=== PATIENT | male | born 1955 | race Two or more races ===

== ENCOUNTER 2020-09-16 07:51 | Outpatient (REF) | payer MEDICARE, OTHER, SELFPAY ==
[2020-09-16 08:33] LABS: Alanine Aminotransferase 32 U/L (0-40); Albumin Level 4.5 g/dL (3.5-5.0); Alkaline Phosphatase 87 U/L (39-117); Anion Gap 14 (12-20); Aspartate Amino Transferase 27 U/L (5-37); Bilirubin Total 0.6 mg/dL (0.0-1.0); Blood Urea Nitrogen 10 mg/dL (9-16); Calcium 9.4 mg/dL (8.4-10.2); Carbon Dioxide 29 mmol/L (22-29); Chloride 101 mmol/L (96-108); Cholesterol 161 mg/dL; Creatinine Urine 90.35 mg/dL; Estimated Glomerular Filt Rate > 60; Glucose Fasting 161 mg/dL (60-99); HDL Cholesterol 52 mg/dL; LDL Cholesterol Calculated 74 mg/dl; Microalbumin Urine < 5.0 mg/L; Potassium 5.3 mmol/l (3.3-5.1); Sodium 139 mmol/L (135-145); Total Protein 7.1 g/dL (6.5-8.0); Triglycerides 176 mg/dL
== END 2020-09-16 07:52 | disposition home or self-care (01) ==
LOC: HO.LAB 07:51
PROVIDERS: PCP Internal Medicine; Visit Provider Internal Medicine
DX: E78.00 Pure hypercholesterolemia, unspecified (principal); E11.9 Type 2 diabetes mellitus without complications
CPT/HCPCS: 80053; 80061; 82043

== ENCOUNTER 2021-01-18 07:40 | Outpatient (REF) | payer MEDICARE, OTHER, SELFPAY ==
[2021-01-18 09:03] LABS: Alanine Aminotransferase 26 U/L (0-40); Albumin Level 4.3 g/dL (3.5-5.0); Alkaline Phosphatase 77 U/L (39-117); Anion Gap 13 (12-20); Aspartate Amino Transferase 21 U/L (5-37); Bilirubin Total 0.5 mg/dL (0.0-1.0); Blood Urea Nitrogen 12 mg/dL (9-16); Calcium 9.9 mg/dL (8.4-10.2); Carbon Dioxide 29 mmol/L (22-29); Chloride 106 mmol/L (96-108); Cholesterol 143 mg/dL; Estimated Glomerular Filt Rate > 60; Glucose Fasting 127 mg/dL (60-99); HDL Cholesterol 47 mg/dL; LDL Cholesterol Calculated 74 mg/dl; Potassium 5.6 mmol/L (3.3-5.1); Sodium 142 mmol/L (135-145); Total Protein 6.7 g/dL (6.5-8.0); Triglycerides 112 mg/dL
== END 2021-01-18 07:41 | disposition home or self-care (01) ==
LOC: HO.LAB 07:40
PROVIDERS: PCP Internal Medicine; Visit Provider Internal Medicine
DX: E11.9 Type 2 diabetes mellitus without complications (principal)
CPT/HCPCS: 36415; 80053; 80061

== ENCOUNTER → 2021-01-22 10:36 | Outpatient (REF) | payer MEDICARE, OTHER, SELFPAY ==
--- NOTE | 2021-01-22 10:45 | ECG_ITS ---
Test Reason : HYPERKALEMIA Blood Pressure : / mmHG Vent. Rate : 062 BPM Atrial Rate : 062 BPM P-R Int : 158 ms QRS Dur : 136 ms QT Int : 446 ms P-R-T Axes : 000 -17 005 degrees QTc Int : 452 ms Normal sinus rhythm Right bundle branch block Abnormal ECG When compared with ECG of 15-JAN-2017 09:11, T wave inversion now evident in Anterior leads Referred By: Cynthia Jackson Electronically Signed By:MARCY TSE MD
== END ==
LOC: HO.CARD 10:36
PROVIDERS: PCP Internal Medicine; Visit Provider Internal Medicine
DX: E87.5 Hyperkalemia (principal)
CPT/HCPCS: 93005

== ENCOUNTER 2021-05-07 16:28 | Emergency (ER) | payer MEDICARE, OTHER, SELFPAY ==
--- NOTE | ~2021-05-07 | US_ITS ---
EXAMINATION: US VENOUS ULTRASOUND WITH DOPPLER LOWER EXTREMITY, RIGHT CLINICAL INFORMATION: Right lower extremity pain and swelling. COMPARISON: None TECHNIQUE: Ultrasound of the deep veins is performed from the hip to the calf with compression sonography and color and pulse Doppler assessment. Spectral analysis with color-flow imaging is performed. FINDINGS: There is normal venous compression and respiratory variation and augmented flow. The visualized common femoral vein, superficial femoral vein, profunda femoral vein, popliteal vein, and the trifurcation region shows no evidence of deep venous thrombosis. There is no significant popliteal fossa cyst. If the patient's symptoms persist, followup ultrasound in 5 days 7 days might be of value to exclude proximal propagation from a non-visualized calf vein. US/US venous duplex LE RT IMPRESSION: No evidence of deep venous thrombosis in the visualized veins of the right lower extremity.
--- NOTE | ~2021-05-07 | XR_ITS ---
Examination: XR foot RT min 3V, XR ankle RT min 3V Indication: right foot/ankle swelling/redness Comparison: No pertinent prior studies are currently available for comparison. Technique: 3 views of the right foot with 2 additional views the right ankle. Lateral view of the right foot and ankle obtained 1 image. Findings: Diffuse soft tissue swelling is seen about the ankle. I do not appreciate any acute fracture or dislocation. Ankle mortise appears to be intact. Mild soft tissue swelling in the region of the forefoot as well. No acute fracture or dislocation within the foot. Prominent calcaneal heel spur is incidentally noted at the attachment point of the Achilles tendon and plantar aponeurosis. Mild degenerative changes in the first MTP joint. XR/XR foot RT min 3V Impression: Soft tissue swelling. No acute fracture or dislocation. No bony destructive lesions.
--- NOTE | ~2021-05-07 | XR_ITS ---
Examination: XR foot RT min 3V, XR ankle RT min 3V Indication: right foot/ankle swelling/redness Comparison: No pertinent prior studies are currently available for comparison. Technique: 3 views of the right foot with 2 additional views the right ankle. Lateral view of the right foot and ankle obtained 1 image. Findings: Diffuse soft tissue swelling is seen about the ankle. I do not appreciate any acute fracture or dislocation. Ankle mortise appears to be intact. Mild soft tissue swelling in the region of the forefoot as well. No acute fracture or dislocation within the foot. Prominent calcaneal heel spur is incidentally noted at the attachment point of the Achilles tendon and plantar aponeurosis. Mild degenerative changes in the first MTP joint. XR/XR ankle RT min 3V Impression: Soft tissue swelling. No acute fracture or dislocation. No bony destructive lesions.
[2021-05-07 16:37] VITALS: BP 109/80; PULSE 67; RESP 18; TEMP 37.1; O2SAT 99; BMI 25.0
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
[2021-05-07 18:10] VITALS: BP 158/69; PULSE 61; RESP 18; TEMP 37.2; O2SAT 98
[2021-05-07 19:06] LABS: MANUAL DIFF FLAG NO
[2021-05-07 19:10] LABS: Basophils Percent Auto 0.6 % (0-2); Eosinophils Absolute Auto 0.2 X10*3/uL (0.0-0.4); Eosinophils Percent Auto 2.7 % (0-4); Hematocrit 37.9 % (42-52); Hemoglobin 12.6 g/dl (14.0-18.0); Imm Gran Abs Auto 0.01 X10*3/uL (0.00-0.03); Imm Gran Pct Auto 0.1 % (0.0-0.4); Lymphocytes Absolute Auto 1.9 X10*3/uL (1.2-4.9); Lymphocytes Percent Auto 26.5 % (20-40); Mean Corpuscular HGB Conc 33.2 g/dl (31.0-36.0); Mean Corpuscular Hemoglobin 30.1 pg (27.0-33.0); Mean Corpuscular Volume 90.7 fL (80-98); Mean Platelet Volume 9.3 fL (9.4-12.4); Monocytes Absolute Auto 0.7 X10*3/uL (0.1-1.2); Monocytes Percent Auto 9.7 % (2-11); Neutrophils Absolute Auto 4.3 X10*3/uL (2.0-8.3); Neutrophils Percent Auto 60.4 % (45-73); Platelet Count 292 X10*3/uL (160-400); Red Blood Count 4.18 X10*6/uL (4.60-5.80); Red Cell Distribution Width 13.2 % (11.0-16.0); White Blood Count 7.1 X10*3/uL (4.8-10.8)
[2021-05-07 19:28] LABS: Lactic Acid 3.3 mmol/L (0.5-2.0)
[2021-05-07 19:33] LABS: Alanine Aminotransferase 16 U/L (0-40); Albumin Level 4.7 g/dL (3.5-5.0); Alkaline Phosphatase 88 U/L (39-117); Anion Gap 18 (12-20); Aspartate Amino Transferase 20 U/L (5-37); Bilirubin Total 0.6 mg/dL (0.0-1.0); Blood Urea Nitrogen 12 mg/dL (9-16); Calcium 10.5 mg/dL (8.4-10.2); Carbon Dioxide 27 mmol/L (22-29); Chloride 99 mmol/L (96-108); Creatinine Clr Calc Pharmacy 57.2; Estimated Glomerular Filt Rate > 60; Glucose Random 123 mg/dL (60-115); Potassium 4.5 mmol/L (3.3-5.1); Sodium 139 mmol/L (135-145); Total Protein 7.7 g/dL (6.5-8.0)
[2021-05-07 19:47] LABS: Erythrocyte Sedimentation Rate 31 MM/HR (0-15)
[2021-05-07 19:57] LABS: Glucose Urine UA NEG (NEG); Leukocyte Esterase Urine NEG (NEG); Nitrite Urine NEG (NEG); Specific Gravity - Urine <= 1.005 (1.005-1.025); Urine Blood NEG (NEG); Urine Ketones NEG (NEG); Urine Protein NEG (NEG-TRACE)
[2021-05-07 19:58] LABS: Appearance Urine CLEAR; Color Urine STRAW
[2021-05-07] MEDS: HYDROcodone Bit/Acetam 5/325 TABLET 1 TAB PO ×2 (20:13→23:11)
[2021-05-07] MEDS: cefTRIAXone sodium 1 GM in 0.9 % Sodium Chloride 50 ML IV (20:14)
[2021-05-07 20:15] VITALS: BP 154/73; PULSE 59; RESP 16; O2SAT 98
[2021-05-07] MEDS: 0.9 % Sodium Chloride 1,000 ML 999 ML IVCONT (20:15)
[2021-05-07 21:03] LABS: Reflex Lactate? Lactic Acid Added
[2021-05-07 22:40] VITALS: BP 146/71; PULSE 60; RESP 16; TEMP 36.3; O2SAT 98
--- NOTE | 2021-05-07 22:48 | PC.NURSE ---
This machine sign writer called lab on behalf of provider (KATJA Hylton) regarding delayed/missing Lactic Acid level result, despite being drawn and sent approximately 1.5 hours ago. Lab stated The tube was left to the side by mistake, but it's still on ice, so we'll put it in the centerfuge and run the result now . Jeni Grover (charge nurse) and Estefania Urbina (provider) aware. Will continue to monitor.
--- NOTE | 2021-05-07 22:50 | PC.NURSE ---
Verified w/ lab lactic acid is pending. Pt resting in bed, reporting increasing pain, vss, skin wpd, no apparent distress.
[2021-05-07 22:59] LABS: ~Lactic Acid-LAB USE ONLY 1.9 mmol/L (0.5-2.0)
== END 2021-05-07 23:21 | disposition home or self-care (01) ==
PROVIDERS: Physician Assistant; Physician Assistant Medical; Emergency Provider Internal Medicine; PCP Internal Medicine
DX: L03.115 Cellulitis of right lower limb (principal); M79.671 Pain in right foot; E11.9 Type 2 diabetes mellitus without complications; I10 Essential (primary) hypertension; Z79.84 Long term (current) use of oral hypoglycemic drugs; Z79.899 Other long term (current) drug therapy
CPT/HCPCS: 36415; 73610; 73630; 80053; 81003; 83605; 83735; 85025; 85652; 86140; 87040; 93971; 96365; 99284; 99291; J0696

== ENCOUNTER 2021-05-17 09:20 | Outpatient (REF) | payer MEDICARE, OTHER, SELFPAY ==
[2021-05-17 11:08] LABS: Alanine Aminotransferase 16 U/L (0-40); Albumin Level 4.2 g/dL (3.5-5.0); Alkaline Phosphatase 80 U/L (39-117); Anion Gap 14 (12-20); Aspartate Amino Transferase 17 U/L (5-37); Bilirubin Total 0.6 mg/dL (0.0-1.0); Blood Urea Nitrogen 18 mg/dL (9-16); Calcium 10.1 mg/dL (8.4-10.2); Carbon Dioxide 26 mmol/L (22-29); Chloride 98 mmol/L (96-108); Cholesterol 104 mg/dL; Estimated Glomerular Filt Rate > 60; Glucose Fasting 107 mg/dL (60-99); HDL Cholesterol 35 mg/dL; LDL Cholesterol Calculated 55 mg/dl; Potassium 4.7 mmol/L (3.3-5.1); Sodium 133 mmol/L (135-145); Total Protein 6.7 g/dL (6.5-8.0); Triglycerides 72 mg/dL
[2021-05-17 12:22] LABS: Creatinine Urine 60.32 mg/dL; Microalbumin Urine < 5.0 mg/L
== END 2021-05-17 09:21 | disposition home or self-care (01) ==
LOC: HO.LAB 09:20
PROVIDERS: PCP Internal Medicine; Visit Provider Internal Medicine
DX: E11.9 Type 2 diabetes mellitus without complications (principal); E78.5 Hyperlipidemia, unspecified
CPT/HCPCS: 36415; 80053; 80061; 82043

== ENCOUNTER 2021-09-27 08:42 | Outpatient (REF) | payer MEDICARE, OTHER, SELFPAY ==
[2021-09-27 10:17] LABS: Prostate Specific Antigen 0.81 ng/mL (<0.05-4.0)
== END 2021-09-27 08:43 | disposition home or self-care (01) ==
LOC: HO.LAB 08:42
PROVIDERS: PCP Internal Medicine; Visit Provider Nurse Practitioner Family
DX: Z12.5 Encounter for screening for malignant neoplasm of prostate (principal)
CPT/HCPCS: 36415; 84153

== ENCOUNTER 2022-02-21 09:28 | Outpatient (REF) | payer MEDICARE, OTHER, SELFPAY ==
[2022-02-21 09:52] LABS: MANUAL DIFF FLAG NO
[2022-02-21 10:25] LABS: Basophils Absolute Auto 0.1 X10*3/uL (0.0-0.2); Basophils Percent Auto 0.9 % (0-2); Eosinophils Absolute Auto 0.4 X10*3/uL (0.0-0.4); Eosinophils Percent Auto 7.5 % (0-4); Hematocrit 36.3 % (42.0-52.0); Hemoglobin 11.8 g/dl (14.0-18.0); Imm Gran Abs Auto 0.01 X10*3/uL (0.00-0.03); Imm Gran Pct Auto 0.2 % (0.0-0.4); Lymphocytes Percent Auto 33.7 % (20-40); Mean Corpuscular HGB Conc 32.5 g/dl (31.0-36.0); Mean Corpuscular Hemoglobin 29.3 pg (27.0-33.0); Mean Corpuscular Volume 90.1 fL (80.0-98.0); Mean Platelet Volume 9.6 fL (9.4-12.4); Monocytes Absolute Auto 0.6 X10*3/uL (0.1-1.2); Monocytes Percent Auto 10.4 % (2-11); Neutrophils Absolute Auto 2.8 x10*3/uL (2.0-8.3); Neutrophils Percent Auto 47.3 % (45-73); Platelet Count 280 X10*3/uL (160-400); Red Blood Count 4.03 X10*6/uL (4.60-5.80); Red Cell Distribution Width 13.2 % (11.0-16.0); White Blood Count 5.9 X10*3/uL (4.8-10.8)
[2022-02-21 11:07] LABS: Alanine Aminotransferase 16 U/L (0-40); Albumin Level 4.2 g/dL (3.5-5.0); Alkaline Phosphatase 70 U/L (39-117); Anion Gap 12 (12-20); Aspartate Amino Transferase 18 U/L (5-37); Bilirubin Total 0.6 mg/dL (0.0-1.0); Blood Urea Nitrogen 13 mg/dL (9-16); Calcium 9.9 mg/dL (8.4-10.2); Carbon Dioxide 26 mmol/L (22-29); Chloride 102 mmol/L (96-108); Cholesterol 128 mg/dL; Estimated Glomerular Filt Rate > 60; Glucose Fasting 100 mg/dL (60-99); HDL Cholesterol 47 mg/dL; Iron 84 mcg/dL (45-160); LDL Cholesterol Calculated 63 mg/dl; Percent Iron Saturation 22 % (15-50); Potassium 5.3 mmol/L (3.3-5.1); Sodium 135 mmol/L (135-145); Total Iron Binding Capacity 374 mcg/dL (228-428); Total Protein 6.6 g/dL (6.5-8.0); Triglycerides 93 mg/dL; Unsaturated Iron Binding 290 ug/dL
[2022-02-21 11:12] LABS: Vitamin D 25-OH Total 24.7 ng/mL (>30)
[2022-02-21 11:45] LABS: Creatinine Urine 70.56 mg/dL; Microalbumin Urine < 5.0 mg/L
== END 2022-02-21 09:29 | disposition home or self-care (01) ==
LOC: HO.LAB 09:28
PROVIDERS: PCP Internal Medicine; Visit Provider Internal Medicine
DX: E55.9 Vitamin D deficiency, unspecified (principal); E11.9 Type 2 diabetes mellitus without complications; E78.5 Hyperlipidemia, unspecified; D64.9 Anemia, unspecified
CPT/HCPCS: 36415; 80053; 80061; 82043; 82306; 83540; 85025

== ENCOUNTER → 2022-02-28 09:05 | Outpatient (BNV) | payer MEDICARE, SELFPAY | PROVIDERS: PCP Internal Medicine; Referring Provider Internal Medicine; Visit Provider Internal Medicine | DX: D50.9 Iron deficiency anemia, unspecified (principal) | CPT/HCPCS: 99203; 99213; 99214 ==

== ENCOUNTER 2022-03-28 10:59 | Outpatient (REF) | payer MEDICARE, OTHER, SELFPAY ==
--- NOTE | ~2022-03-28 | XR_ITS ---
EXAMINATION: XR FOOT, RIGHT CLINICAL INFORMATION: Right foot pain. COMPARISON: None TECHNIQUE: AP, lateral, and oblique views of the right foot. FINDINGS: The bones and soft tissues are normal. No fracture. Small plantar and retrocalcaneal spurs. Alignment is anatomic. Joint spaces are maintained. XR/XR foot RT min 3V IMPRESSION: Small degenerative calcaneal spurs without other significant abnormality.
== END 2022-03-28 11:00 | disposition home or self-care (01) ==
LOC: HO.HMGCX 10:59
PROVIDERS: PCP Internal Medicine; Visit Provider Internal Medicine
DX: M67.979 Unspecified disorder of synovium and tendon, unspecified ankle and foot (principal); M79.671 Pain in right foot
CPT/HCPCS: 73630

== ENCOUNTER 2022-07-25 09:12 | Outpatient (REF) | payer MEDICARE, OTHER, SELFPAY ==
[2022-07-25 09:34] LABS: MANUAL DIFF FLAG NO
[2022-07-25 10:47] LABS: Basophils Percent Auto 0.7 % (0-2); Eosinophils Absolute Auto 0.2 X10*3/uL (0.0-0.4); Eosinophils Percent Auto 3.8 % (0-4); Hematocrit 37.4 % (42.0-52.0); Hemoglobin 12.2 g/dl (14.0-18.0); Imm Gran Abs Auto 0.02 X10*3/uL (0.00-0.03); Imm Gran Pct Auto 0.4 % (0.0-0.4); Lymphocytes Absolute Auto 1.8 X10*3/uL (1.2-4.9); Lymphocytes Percent Auto 31.4 % (20-40); Mean Corpuscular HGB Conc 32.6 g/dl (31.0-36.0); Mean Corpuscular Hemoglobin 29.1 pg (27.0-33.0); Mean Corpuscular Volume 89.3 fL (80.0-98.0); Mean Platelet Volume 9.5 fL (9.4-12.4); Monocytes Absolute Auto 0.5 X10*3/uL (0.1-1.2); Monocytes Percent Auto 9.5 % (2-11); Neutrophils Percent Auto 54.2 % (45-73); Platelet Count 319 X10*3/uL (160-400); Red Blood Count 4.19 X10*6/uL (4.60-5.80); Red Cell Distribution Width 12.9 % (11.0-16.0); White Blood Count 5.6 X10*3/uL (4.8-10.8)
[2022-07-25 11:20] LABS: Alanine Aminotransferase 16 U/L (0-40); Albumin Level 4.6 g/dL (3.5-5.0); Alkaline Phosphatase 78 U/L (39-117); Anion Gap 16 (12-20); Aspartate Amino Transferase 22 U/L (5-37); Bilirubin Total 0.6 mg/dL (0.0-1.0); Blood Urea Nitrogen 16 mg/dL (9-16); Calcium 10.4 mg/dL (8.4-10.2); Carbon Dioxide 28 mmol/L (22-29); Chloride 99 mmol/L (96-108); Cholesterol 142 mg/dL; Estimated Glomerular Filt Rate > 60; Glucose Fasting 130 mg/dL (60-99); HDL Cholesterol 56 mg/dL; Iron 116 mcg/dL (45-160); LDL Cholesterol Calculated 65 mg/dl; Percent Iron Saturation 29 % (15-50); Potassium 5.6 mmol/L (3.3-5.1); Sodium 137 mmol/L (135-145); Total Iron Binding Capacity 407 mcg/dL (228-428); Total Protein 7.3 g/dL (6.5-8.0); Triglycerides 106 mg/dL; Unsaturated Iron Binding 291 ug/dL
[2022-07-25 11:44] LABS: Vitamin D 25-OH Total 46.2 ng/mL (>30)
[2022-07-25 13:39] LABS: Creatinine Urine 40.65 mg/dL; Microalbumin Urine < 5.0 mg/L
== END 2022-07-25 09:13 | disposition home or self-care (01) ==
LOC: HO.LAB 09:12
PROVIDERS: PCP Internal Medicine; Visit Provider Internal Medicine
DX: E55.9 Vitamin D deficiency, unspecified (principal); E11.9 Type 2 diabetes mellitus without complications; E78.5 Hyperlipidemia, unspecified; D64.9 Anemia, unspecified
CPT/HCPCS: 36415; 80053; 80061; 82043; 82306; 83540; 85025

== ENCOUNTER → 2022-08-12 09:05 | Outpatient (REF) | payer MEDICARE, OTHER, SELFPAY ==
--- NOTE | 2022-08-12 09:42 | ECG_ITS ---
Test Reason : HYPERKALEMIA Blood Pressure : / mmHG Vent. Rate : 062 BPM Atrial Rate : 062 BPM P-R Int : 174 ms QRS Dur : 150 ms QT Int : 450 ms P-R-T Axes : 009 -20 007 degrees QTc Int : 456 ms Sinus rhythm with Premature supraventricular complexes Right bundle branch block Left axis deviation Abnormal ECG When compared with ECG of 22-JAN-2021 10:52, Premature supraventricular complexes are now Present Referred By: Cynthia Jackson Electronically Signed By:RODRÍGUEZ KAPOOR MD
[2022-08-12 11:16] LABS: Alanine Aminotransferase 20 U/L (0-40); Albumin Level 4.5 g/dL (3.5-5.0); Alkaline Phosphatase 78 U/L (39-117); Anion Gap 17 (12-20); Aspartate Amino Transferase 21 U/L (5-37); Bilirubin Total 0.3 mg/dL (0.0-1.0); Blood Urea Nitrogen 18 mg/dL (9-16); Calcium 9.8 mg/dL (8.4-10.2); Carbon Dioxide 26 mmol/L (22-29); Chloride 99 mmol/L (96-108); Estimated Glomerular Filt Rate > 60; Glucose Random 97 mg/dL (60-115); Potassium 4.7 mmol/L (3.3-5.1); Sodium 137 mmol/L (135-145); Total Protein 7.1 g/dL (6.5-8.0)
== END ==
LOC: HO.CARD 09:05
PROVIDERS: PCP Internal Medicine; Visit Provider Internal Medicine
DX: E87.5 Hyperkalemia (principal)
CPT/HCPCS: 36415; 80053; 93005

== ENCOUNTER 2022-11-18 10:35 | Emergency (ER) | payer MEDICARE, OTHER, SELFPAY ==
--- NOTE | ~2022-11-18 | CT_ITS ---
EXAMINATION: CT CERVICAL SPINE WITHOUT CONTRAST CLINICAL INFORMATION: Fall COMPARISON: None TECHNIQUE: Multidetector CT imaging of the cervical spine was performed without the use of intravenous contrast. Multiplanar reformats created on an independent workstation were reviewed. This CT examination was performed using dose optimization techniques as appropriate, variously including the following: *Automated exposure control *Adjustment of mA and/or kV according to patient size (this includes techniques or standardized protocols for targeted exams where dose is matched to indication/reason for exam; i.e. extremities or head) *Use of iterative reconstruction technique DLP: 670 mGy-cm FINDINGS: Atlantooccipital alignment is maintained. The vertebral bodies and posterior elements align normally. No acute fracture or subluxation. Vertebral body heights obtained. Prominent endplate osteophyte at C5-C6, C6-C7 and C7-T1 with accompanying loss of disc space height at C5-C6 and C6-C7. In conjunction with uncovertebral arthrosis, this leads to at least mild bilateral neural foraminal narrowing at C6-C7. Mild central canal stenosis suspected at C5-C6. Mild facet arthropathy throughout cervical spine, worse on the left at C2-C3. The cervicomedullary junction and spinal cord are grossly unremarkable. The paraspinal soft tissues are unremarkable. The imaged lung apices are clear. CT/CT cervical spine wo IV con IMPRESSION: No acute fracture or traumatic malalignment.
--- NOTE | ~2022-11-18 | CT_ITS ---
EXAMINATION: CT HEAD AND FACIAL BONES WITHOUT CONTRAST CLINICAL INFORMATION: Status post fall with head and facial trauma. COMPARISON: None TECHNIQUE: Multiple axial images of the head and facial bones were obtained without the administration of intravenous contrast. Coronal and sagittal reformatted images were obtained. This CT examination was performed using dose optimization techniques as appropriate, variously including the following: *Automated exposure control *Adjustment of mA and/or kV according to patient size (this includes techniques or standardized protocols for targeted exams where dose is matched to indication/reason for exam; i.e. extremities or head) *Use of iterative reconstruction technique DLP: 659.87, 303.59 mGy-cm FINDINGS: Head: The cortical sulci are normal. The lateral ventricles are symmetrical. The third and fourth ventricles are in their normal midline position. The basilar and prepontine cisterns are unremarkable. There is no acute intra or extracerebral abnormality. There is no mass effect or midline shift. Sections through the bony calvarium are unremarkable. The paranasal sinuses are clear. The bony orbits and orbital contents are unremarkable. Facial bones: Acute, comminuted fractures of the mandible are seen with. There are fractures of the mandibular necks bilaterally with associated anteromedial displacement of the condyles. There are mildly displaced fractures of the floors of the external auditory canals bilaterally (image 190, series 10 on the right; image 47, series 10 on the left). Additionally, there is a comminuted fracture of the left anterior maneuver the body with extension superiorly to the canine and molar apices. The minimal to mild maxillary, ethmoid and frontal sinuses are clear. The sphenoid sinuses are clear. There are no air-fluid levels. The ostiomeatal complexes are patent and within normal limits. No osseous abnormalities are identified. The bony orbits and orbital contents are unremarkable. The visualized mastoid air cells are clear. Hypoaeration of the right mastoid process. CT/CT facial bones wo IV con IMPRESSION: 1. No acute intracranial pathology. 2. Acute, comminuted fractures of the mandible bilaterally with associated anteromedial displacement of the condyles. 3. Mildly displaced fractures of the floors of the external auditory canals bilaterally. 4. Comminuted fracture of the left anterior mandibular body with extension superiorly to the canine and molar apices.
[2022-11-18 10:43] VITALS: BP 169/75; PULSE 80; RESP 18; TEMP 36.6; O2SAT 98; BMI 25.0
--- NOTE | 2022-11-18 10:53 | PC.NURSE ---
pt taken to bathroom. pt rinsed mouth out. large clot noted. bleeding continues. large bite jacob in center of bottom lip with swelling noted.
[2022-11-18] MEDS: Morphine Sulfate 2 MG/ML CARTRIDGE IVPUSH ×2 (11:39→12:39)
[2022-11-18 11:49] VITALS: BP 177/72; PULSE 83; RESP 18; O2SAT 98
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
[2022-11-18 11:53] LABS: Basophils Percent Auto 0.1 % (0-2); Hematocrit 33.6 % (42.0-52.0); Hemoglobin 11.3 g/dl (14.0-18.0); Imm Gran Abs Auto 0.05 X10*3/uL (0.00-0.03); Imm Gran Pct Auto 0.4 % (0.0-0.4); Lymphocytes Absolute Auto 0.7 X10*3/uL (1.2-4.9); Lymphocytes Percent Auto 5.9 % (20-40); MANUAL DIFF FLAG NO; Mean Corpuscular HGB Conc 33.6 g/dl (31.0-36.0); Mean Corpuscular Hemoglobin 28.9 pg (27.0-33.0); Mean Corpuscular Volume 85.9 fL (80.0-98.0); Mean Platelet Volume 9.4 fL (9.4-12.4); Monocytes Absolute Auto 0.7 X10*3/uL (0.1-1.2); Monocytes Percent Auto 6.2 % (2-11); Neutrophils Absolute Auto 10.4 x10*3/uL (2.0-8.3); Neutrophils Percent Auto 87.4 % (45-73); Platelet Count 292 X10*3/uL (160-400); Red Blood Count 3.91 X10*6/uL (4.60-5.80); Red Cell Distribution Width 13.2 % (11.0-16.0); White Blood Count 11.9 X10*3/uL (4.8-10.8)
[2022-11-18 12:00] LABS: Prothrombin Time 11.4 SEC (10.0-13.1)
[2022-11-18 12:06] LABS: Alanine Aminotransferase 17 U/L (0-40); Albumin Level 4.2 g/dL (3.5-5.0); Alkaline Phosphatase 76 U/L (39-117); Anion Gap 16 (12-20); Aspartate Amino Transferase 21 U/L (5-37); Bilirubin Direct 0.3 mg/dL (0.0-0.5); Blood Urea Nitrogen 16 mg/dL (9-16); Calcium 9.5 mg/dL (8.4-10.2); Carbon Dioxide 26 mmol/L (22-29); Chloride 97 mmol/L (96-108); Creatinine Clr Calc Pharmacy 67.8; Estimated Glomerular Filt Rate > 60; Glucose Random 157 mg/dL (60-115); Magnesium 1.5 mg/dL (1.6-2.6); Potassium 4.3 mmol/L (3.3-5.1); Sodium 135 mmol/L (135-145); Total Protein 6.7 g/dL (6.5-8.0)
[2022-11-18 12:24] LABS: IDNOW Serial# 16C4AD1C
[2022-11-18 12:25] LABS: COVID-19 Test Negative (Negative)
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
[2022-11-18 12:38] VITALS: BP 179/76; PULSE 78; RESP 18; O2SAT 98
[2022-11-18] MEDS: Diphth,Pertus(ACell),Tet Adult 0.5 ML SYRINGE IM (12:45)
[2022-11-18] MEDS: Morphine Sulfate 4 MG/ML CARTRIDGE IVPUSH (14:08)
[2022-11-18] MEDS: Magnesium Sulfate/H2O 2 GM/50 ML PIGGYBACK IV (14:09)
--- NOTE | 2022-11-18 14:13 | MHC.EDTECH ---
@3550 CALL PLACED TO [facility] PT TX LINE @ REQUEST OF KATJA GIBSON FOR TRAUMA TX FOR THIS PT SOHAIL ANSWERS, TAKES PT INFO THEN ASKS TO SPEAK WITH ALVAREZ PINO TAKES OVER CALL RIGHT AWAY
--- NOTE | 2022-11-18 14:24 | MHC.EDTECH ---
@5330 CALL RECEIVED FROM [facility] PT TX LINE ASKING TO SPEAK WITH ALVAREZ PINO TAKES OVER CALL RIGHT AWAY
[2022-11-18 14:34] VITALS: BP 167/72; PULSE 76; RESP 13; O2SAT 97
--- NOTE | 2022-11-18 14:35 | MHC.EDTECH ---
PER KATJA PINO, DR CRAIN @ [facility] TRAUMA ER ACCEPTS THIS PT FOR TRANSFER [facility] FROM [employer] IS HERE ARRANGING TRANSPORT @ THIS TIME
[2022-11-18] MEDS: Clindamycin Phosphate/D5W 600 MG/50 ML PIGGYBACK 100 MG IV (14:42)
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
--- NOTE | 2022-11-18 15:12 | PC.NURSE ---
report given to page sapp at [facility]
== END 2022-11-18 15:41 | disposition short-term general hospital (02) ==
PROVIDERS: Physician Assistant; Emergency Provider Student in an Organized Health Care Education/Training Program; PCP Internal Medicine
DX: S02.609A Fracture of mandible, unspecified, initial encounter for closed fracture (principal); S02.92XA Unspecified fracture of facial bones, initial encounter for closed fracture; S00.511A Abrasion of lip, initial encounter; R51.9 Headache, unspecified; M54.2 Cervicalgia; I10 Essential (primary) hypertension; W01.0XXA Fall on same level from slipping, tripping and stumbling without subsequent striking against object, initial encounter; Y93.9 Activity, unspecified; Y92.480 Sidewalk as the place of occurrence of the external cause; Y99.9 Unspecified external cause status; Z20.822 Contact with and (suspected) exposure to COVID-19; Z20.828 Contact with and (suspected) exposure to other viral communicable diseases; Z79.899 Other long term (current) drug therapy; Z23 Encounter for immunization
CPT/HCPCS: 36415; 70450; 70486; 72125; 80048; 80076; 83735; 85025; 85610; 87635; 90471; 90715; 96365; 96375; 96376; 99285; J2270; J3475

== ENCOUNTER → 2023-04-17 09:10 | Outpatient (BNVA) | payer MEDICARE, OTHER, SELFPAY | PROVIDERS: PCP Internal Medicine; Referring Provider Internal Medicine; Visit Provider Internal Medicine | DX: I45.10 Unspecified right bundle-branch block (principal); I34.0 Nonrheumatic mitral (valve) insufficiency; I10 Essential (primary) hypertension; E11.9 Type 2 diabetes mellitus without complications; Z87.74 Personal history of (corrected) congenital malformations of heart and circulatory system; Z79.84 Long term (current) use of oral hypoglycemic drugs; Z79.899 Other long term (current) drug therapy | CPT/HCPCS: 99202 ==

== ENCOUNTER 2023-05-02 10:31 | Outpatient (REF) | payer MEDICARE, SELFPAY ==
[2023-05-02 12:57] LABS: Alanine Aminotransferase 14 U/L (0-40); Albumin Level 4.3 g/dL (3.5-5.0); Alkaline Phosphatase 67 U/L (39-117); Anion Gap 12 (12-20); Aspartate Amino Transferase 18 U/L (5-37); Bilirubin Total 0.5 mg/dL (0.0-1.0); Blood Urea Nitrogen 14 mg/dL (9-16); Calcium 9.9 mg/dL (8.4-10.2); Carbon Dioxide 27 mmol/L (22-29); Chloride 98 mmol/L (96-108); Cholesterol 129 mg/dL; Estimated Glomerular Filt Rate > 60; Glucose Fasting 102 mg/dL (60-99); HDL Cholesterol 54 mg/dL; LDL Cholesterol Calculated 57 mg/dl; Sodium 132 mmol/L (135-145); Total Protein 7.2 g/dL (6.5-8.0); Triglycerides 91 mg/dL
[2023-05-02 13:00] LABS: Vitamin D 25-OH Total 52.2 ng/mL (>30)
[2023-05-02 15:40] LABS: Creatinine Urine 80.94 mg/dL; Microalbum/Creatinine Ratio Ur 6.1 ug/mg cr
== END 2023-05-02 10:32 | disposition home or self-care (01) ==
LOC: HO.LAB 10:31
PROVIDERS: PCP Internal Medicine; Visit Provider Internal Medicine
DX: E11.9 Type 2 diabetes mellitus without complications (principal); E78.5 Hyperlipidemia, unspecified; E55.9 Vitamin D deficiency, unspecified
CPT/HCPCS: 36415; 80053; 80061; 82043; 82306

== ENCOUNTER 2023-05-06 15:29 | Outpatient (AMB) | payer MEDICARE, SELFPAY ==
--- NOTE | 2023-05-06 15:37 | A.OFFPC_ITS ---
Vital Signs 05/06/23 15:41 05/06/23 16:06 Height 5 ft 7 in Weight 150 lb BMI 23.5 BP 146/70 H 150/70 H Blood Pressure Location Lt brachial Lt brachial Position Sitting Sitting Intake Visit Reasons: 4 Month Follow Up DM Intake Note: Patient here for a 4 month follow up DM Superintendent Sanitation Required: No Accompanied by: Self / Same As Patient Allergies shellfish derived Allergy (Severe, Verified 05/06/23 15:51) DIFFICULTY BREATHING,HIVES amlodipine Allergy (Unknown, Verified 05/06/23 15:51) leg edema lisinopril Allergy (Unknown, Verified 05/06/23 15:51) hyperkalemia Penicillins [PENICILLINS] Allergy (Unknown, Verified 05/06/23 15:51) HIVES Medication List - Last Reconciled 05/06/23 by Cynthia Jackson MD atorvastatin 20 mg PO DAILY cholecalciferol (vitamin D3) 25 mcg PO DAILY 90 days cyanocobalamin (vitamin B-12) (Vitamin B-12) 1,000 mcg PO DAILY hydralazine 25 mg PO TID 30 days hydrochlorothiazide 25 mg PO DAILY 90 days metformin 1,000 mg PO BID triamcinolone acetonide 0.1% 1 appl topical BID Tobacco use date assessed: 05/06/23 Fall risk assessment: No Falls in past year Last assessed Fall Risk: 05/06/23 Dental Screening Dental Screen Date: 05/06/23 Did you have a dental visit in the last 12 months?: Yes Did you have a dental problem in the last 6 months where you did not have access to dental care?: No Was dental information given to patient?: Patient has dentist HPI HPI Comments History of Present Illness Details This is a 67-year-old male with diabetes mellitus type 2, hypertension, pure hypercholesterolemia and low vitamin-D that comes today for follow-up on his conditions. Blood pressure borderline normal to elevated and this will be recheck in 3 weeks by nurse navigator. A1c within goal. LDL within goal. Vitamin-D normal on supplements. [facility] Medical History (Updated 05/06/23 @ 15:57 by Cynthia Jackson MD) Diabetes mellitus Essential hypertension History of facial injury Hyperkalemia Hypovitaminosis D Normocytic anemia Pure hypercholesterolemia Screening for prostate cancer Surgical History (Updated 05/06/23 @ 15:46 by JOSE Yip) History of atrial septal defect repair History of colonoscopy History of hydrocele History of mandibular surgery History of surgical procedure on mouth Family History Father Liver disease Alcohol abuse Substance use disorder Mother Diabetes Hypertension History of coronary artery bypass graft Social History Household Members: Significant Other Household Members Other:: iris Housing: House Alcohol intake: current Alcohol intake frequency: holidays/special occasions only Alcohol type: beer Patient Tobacco Use Status: Never used Tobacco e-Cigarette/Vaping Use: Never Used Second Hand Smoke Exposure: No service: No Current occupational status: employed 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 1. Little interest or pleasure in doing things: not at all 2. Feeling down, depressed, or hopeless: not at all 3. Trouble falling or staying asleep, or sleeping too much: not at all 4. Feeling tired or having little energy: not at all 5. Poor appetite or overeating: not at all 6. Feeling bad about yourself - or that you are a failure or have let yourself or your family down: not at all 7. Trouble concentrating on things, such as reading the newspaper or watching television: not at all 8. Moving or speaking so slowly that other people could have noticed. Or the opposite - being so fidgety or restless that you have been moving around a lot more than usual: not at all 9. Thoughts that you would be better off or of hurting yourself in some way: not at all Total score: 0 Depression Screening Interpretation: Negative [id number] - PHQ-9 Billing: Yes Source: Developed by Drs. Patrice Cadet, Concepcion Dutton, Jere Qiu and colleagues, with an educational manfred from [employer]. Thrive Questionnaire Date Thrive assessed: 05/06/23 I am a: Patient What is your living situation today?: I have a steady place to live Within the past 12 months, did the food you bought not last and you didn't have the money to get more?: Never true Within the past 12 months, did you worry whether your food would run out before you got money to buy more?: Never true Do you have trouble paying for medicines?: No Do you have trouble getting transportation to medical appointments?: No Do you have trouble paying your heating and electricity bill?: No Do you have trouble taking care of your child, family member or friend?: No Do you have trouble with day-to-day activities such as bathing, preparing meals, shopping, managing finances, etc.?: No Are you currently unemployed and looking for a job?: No Are you interested in more education?: No Please select the resources that you would like help with: None Currently or been in a relationship where the following occur: no concerns reported AUDIT C Alcohol Use Questionnaire (AUDIT-C) 1. How often do you have a drink containing alcohol?: Monthly or less 2. How many drinks containing alcohol do you have on a typical day when you are drinking?: 1 or 2 3. How often do you have six or more drinks on one occasion?: Never Total Score: 1 Score Reviewed/Action Taken: No MK-7 AMB Questionnaire MK-7 Date MK - 7 assessed: 05/06/23 Feeling nervous, anxious, or on edge: 0 = Not at all Not being able to stop or control worryin = Not at all Worrying too much about different things: 0 = Not at all Trouble relaxin = Not at all Being so restless that it is hard to sit still: 0 = Not at all Becoming easily annoyed or irritable: 0 = Not at all Feeling afraid as if something awful might happen: 0 = Not at all Total MK-7 score (0-4 normal; 5-9 mild; 10-14 moderate; 15-21 severe): 0 Source: Developed by Drs. Patrice Cadet, Concepcion Dutton, Jere Qiu and colleagues, with an educational manfred from [employer]. MK-7 Assessment Billing MK-7 Assessment Tool: MK-7 Assessment 57945 Review of Systems Const All systems reviewed & are unremarkable except as noted in HPI and below Eyes Reports no additional complaints, Denies change in vision and Denies other visual disturbances Card Denies chest pain at rest, Denies chest pain with activity, Denies edema, Denies irregular heart rhythm, Denies claudication, Denies dyspnea, Denies dyspnea on exertion, Denies orthopnea, Denies paroxysmal nocturnal dyspnea and Denies slow heart rate Resp Denies cough, Denies dyspnea and Denies dyspnea on exertion GI Denies abdominal pain, Denies change in bowel habits, Denies excessive flatus, Denies nausea and Denies vomiting Denies urinary hesitancy, Denies urinary incontinence and Denies urinary urgency Musc Denies abnormal gait, Denies atrophy, Denies deformity and Denies limited range of motion Skin/Breast Denies bleeding lesions, Denies changing lesions and Denies rash Neuro Denies abnormal gait and Denies lack of coordination Physical exam (Primary Care) Vital Signs: Last Vital Signs BP 150/70 H 05/06/23 16:06 BMI result Body Mass Index 23.5 Tobacco/Smoking Status: Tobacco use Status Tobacco use date assessed 05/06/23 05/06/23 15:49 Patient Tobacco Use Status Never used Tobacco 05/06/23 15:46 e-Cigarette/Vaping Use Never Used 05/06/23 15:46 PHQ-9: PHQ-9 Score PHQ-9: Total score 0 05/06/23 16:12 Depression Screening Interpretation: Negative Thrive Assessment: Date of Thrive Assessment Date Thrive assessed 05/06/23 05/06/23 15:40 Currently or been in a relationship where the following occur: no concerns reported Eyes General: appearance normal, both eyes and all related structures Eyelids: Yes eyelids normal Conjunctivae: conjunctivae normal Neck Neck: Yes normal visual inspection and Yes supple Resp Effort & Inspection: normal respiratory effort Auscultation: clear to auscultation bilaterally Cardio Jugular venous distension: no JVD Rate: regular rate Rhythm: regular rhythm Heart sounds: S1 normal heart sound present and S2 normal heart sound present Extrem General: Yes full ROM Results AMB Hemoglobin A1c AMB Hemoglobin A1c 6.0 % Last Edit by JOSE Yip on 05/06/23 15:5 1 Results Reviewed Results Reviewed: Laboratory Last Values Hgb A1c (Clinic) 6.0 % (4.0-6.0) 05/06/23 15:36 Assessment and Plan Assessment & Plan (1) Diabetes mellitus: Code(s): E11.9 - Type 2 diabetes mellitus without complications Qualifiers: Diabetes mellitus complication status: without complication 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 A1c goal is equal or less than 7%. (2) Essential hypertension: Code(s): I10 - Essential (primary) hypertension Plan: Continue hydralazine. Blood pressure goal is equal or less than 130/80. Recheck blood pressure with nurse navigator in 3 weeks. (3) Pure hypercholesterolemia: Code(s): E78.00 - Pure hypercholesterolemia, unspecified Plan: Continue statins. LDL goal is less than 70. (4) Hypovitaminosis D: Code(s): E55.9 - Vitamin D deficiency, unspecified Plan: Continue vitamin-D supplement Orders: Orders Vitamin B12 and Folate 4 Months E53.8 - Deficiency of other specified B group vitamins IRON PROFILE 4 Months D64.9 - Anemia, unspecified Vitamin D 25-OH Total 4 Months E55.9 - Vitamin D deficiency, unspecified Complete Blood Count Auto Diff 4 Months D64.9 - Anemia, unspecified Comprehensive [place]. Panel Fast 4 Months E11.9 - Type 2 diabetes mellitus without complications Lipid Panel 4 Months E78.5 - Hyperlipidemia, unspecified Microalbumin, Random (w Creat) 4 Months E11.9 - Type 2 diabetes mellitus without complications AMB Hemoglobin A1c Today E11.9 - Type 2 diabetes mellitus without complications Referrals Dermatology Referral L98.9 - Disorder of the skin and subcutaneous tissue, unspecified Coding Level of Care Code Est Pt Level 4 (72555) Diagnoses Diabetes mellitus E11.9 Diabetes mellitus complication status: without complication Diabetes mellitus skilled nursing insulin use: without skilled nursing use Diabetes mellitus type: type 2 Essential hypertension I10 Pure hypercholesterolemia E78.00 Hypovitaminosis D E55.9 Additional Codes MK-7 Assessment Billing - MK-7 Assessment Tool: MK-7 Assessment 37357 ([id number]) Time Spent (min) 24
[2023-05-06 15:41] VITALS: BP 146/70; BMI 23.5
[2023-05-06 16:06] VITALS: BP 150/70
== END 2023-05-06 16:17 | disposition home or self-care (01) ==
PROVIDERS: Visit Provider Internal Medicine
DX: E11.9 Type 2 diabetes mellitus without complications (principal); I10 Essential (primary) hypertension; E78.00 Pure hypercholesterolemia, unspecified; E55.9 Vitamin D deficiency, unspecified
CPT/HCPCS: 83036; 99214

== ENCOUNTER → 2023-05-09 10:45 | Outpatient (REF) | payer MEDICARE, SELFPAY ==
--- NOTE | 2023-05-09 10:49 | CA_ITS ---
Acquisition Time: 2023-05-09 10:50:53 Total Exercise Time: 00:09:09 Test Indications: Abnormal ECG Medications: ATORVASTATIN HYDRALAZINE HCTZ METFORMIN Protocol: ABEL Max HR: 187 BPM 123% of Pred: 151 BPM Max BP: 172/070 mmHG Max Work Load: 10.1 METS Exercise strss test exercise 9 min 9 sec of Abel protocol achieving 98% MPHR, with a brief jump to 125% 6 sec recovery without anginal symptoms, with normotensive response to exercise, with EKG change to AFIB. Echo images obtained by tech at rest and immediately post peak exercise. Definity contrast used. Test reviewed with Dr. Preston. Referred By: Lonnie Preston Overread By: Abby Bernal
--- NOTE | 2023-05-09 13:19 | ECG_ITS ---
Test Reason : ?AFIB Blood Pressure : / mmHG Vent. Rate : 127 BPM Atrial Rate : 000 BPM P-R Int : 000 ms QRS Dur : 130 ms QT Int : 318 ms P-R-T Axes : 000 -17 -10 degrees QTc Int : 462 ms Atrial fibrillation with rapid ventricular response Right bundle branch block Abnormal ECG When compared with ECG of 12-AUG-2022 09:39, Atrial fibrillation has replaced Sinus rhythm Vent. rate has increased BY 65 BPM Referred By: Abby Bernal Electronically Signed By:Yfn Suarez
== END ==
LOC: HO.CARD 10:45
PROVIDERS: PCP Internal Medicine; Visit Provider Internal Medicine
DX: R00.2 Palpitations (principal); I45.10 Unspecified right bundle-branch block; I34.0 Nonrheumatic mitral (valve) insufficiency; Z87.74 Personal history of (corrected) congenital malformations of heart and circulatory system
CPT/HCPCS: 93005; 93350; Q9957

== ENCOUNTER → 2023-05-09 10:49 | Outpatient (BNV) | payer MEDICARE, SELFPAY | PROVIDERS: PCP Internal Medicine; Visit Provider Nurse Practitioner | DX: I45.10 Unspecified right bundle-branch block (principal) | CPT/HCPCS: 93010; 93350 ==

== ENCOUNTER 2023-05-09 12:41 | Emergency (ER) | payer MEDICARE, OTHER, SELFPAY ==
--- NOTE | 2023-05-09 12:50 | ECG_ITS ---
Test Reason : AFIB Blood Pressure : / mmHG Vent. Rate : 099 BPM Atrial Rate : 000 BPM P-R Int : 000 ms QRS Dur : 136 ms QT Int : 372 ms P-R-T Axes : 000 -23 -07 degrees QTc Int : 477 ms Atrial fibrillation Right bundle branch block T wave abnormality, consider lateral ischemia Abnormal ECG When compared with ECG of 09-MAY-2023 11:58, No significant change was found Referred By: Irene Christopher Electronically Signed By:Yfn Suarez
[2023-05-09 12:51] VITALS: BP 150/78; PULSE 118; RESP 15; TEMP 36.8; BMI 23.5
[2023-05-09 13:01] VITALS: O2SAT 98
[2023-05-09 13:31] LABS: Basophils Percent Auto 0.6 % (0-2); Eosinophils Absolute Auto 0.1 X10*3/uL (0.0-0.4); Eosinophils Percent Auto 1.7 % (0-4); Hematocrit 34.6 % (42.0-52.0); Hemoglobin 11.1 g/dl (14.0-18.0); Imm Gran Abs Auto 0.02 X10*3/uL (0.00-0.03); Imm Gran Pct Auto 0.3 % (0.0-0.4); Lymphocytes Absolute Auto 1.4 X10*3/uL (1.2-4.9); Lymphocytes Percent Auto 21.5 % (20-40); MANUAL DIFF FLAG NO; Mean Corpuscular HGB Conc 32.1 g/dl (31.0-36.0); Mean Corpuscular Hemoglobin 26.4 pg (27.0-33.0); Mean Corpuscular Volume 82.4 fL (80.0-98.0); Mean Platelet Volume 9.2 fL (9.4-12.4); Monocytes Absolute Auto 0.4 X10*3/uL (0.1-1.2); Monocytes Percent Auto 6.5 % (2-11); Neutrophils Absolute Auto 4.4 x10*3/uL (2.0-8.3); Neutrophils Percent Auto 69.4 % (45-73); Platelet Count 330 X10*3/uL (160-400); Red Cell Distribution Width 14.7 % (11.0-16.0); White Blood Count 6.3 X10*3/uL (4.8-10.8)
[2023-05-09 13:43] LABS: Anion Gap 16 (12-20)
[2023-05-09 13:47] LABS: Prothrombin Time 11.1 SEC (10.0-13.1)
[2023-05-09 13:48] LABS: Alanine Aminotransferase 10 U/L (0-40); Albumin Level 4.3 g/dL (3.5-5.0); Alkaline Phosphatase 81 U/L (39-117); Aspartate Amino Transferase 16 U/L (5-37); Bilirubin Total 0.5 mg/dL (0.0-1.0); Blood Urea Nitrogen 16 mg/dL (9-16); Calcium 9.8 mg/dL (8.4-10.2); Carbon Dioxide 23 mmol/L (22-29); Chloride 93 mmol/L (96-108); Creatinine Clr Calc Pharmacy 61.4; Estimated Glomerular Filt Rate > 60; Glucose Random 196 mg/dL (60-115); Magnesium 1.6 mg/dL (1.6-2.6); Potassium 3.2 mmol/L (3.3-5.1); Sodium 129 mmol/L (135-145); Total Protein 7.4 g/dL (6.5-8.0)
[2023-05-09 13:49] LABS: Partial Thromboplastin Time 30.7 SEC (26.0-36.4)
--- NOTE | 2023-05-09 16:35 | ED_ITS ---
HPI - General Adult General Chief complaint: Arrhythmia/Palpitations Stated complaint: afib Time Seen by Provider: 05/09/23 16:10 Source: patient, family (Daughter), RN notes reviewed and old records reviewed Mode of arrival: ambulatory Limitations: no limitations History of Present Illness HPI narrative: 67-year-old male past medical history significant for hypertension, diabetes, hyperlipidemia presents for evaluation of atrial fibrillation with RVR. The patient was at a cardiology office adjacent to emergency room. He was undergoing a routine stress test and echocardiogram During the stress status he apparently went into atrial fibrillation with a heart rate as high as 150/160. He was given metoprolol in the office and referred to the ER for further evaluation. At the time of my evaluation the patient reports he has no complaints, this includes no chest pain, shortness of breath no palpitations His heart rate is in the 60s and 70s, remaining in atrial fibrillation He denies any history of atrial fibrillation He reports a remote history of open heart surgery over 30 years ago Per cardiology notes this may have been ?atrial septal defect. ? Related Data Previous Rx's Medication Instructions Recorded metformin 1,000 mg tablet 1,000 mg PO BID #180 tabs 11/10/22 hydralazine 25 mg tablet 25 mg PO TID 30 days #90 tabs 12/25/22 cholecalciferol (vitamin D3) 25 25 mcg PO DAILY 90 days #90 caps 01/16/23 mcg (1,000 unit) capsule cyanocobalamin (vitamin B-12) 1,000 mcg PO DAILY #90 tabs 02/19/23 1,000 mcg tablet (Vitamin B-12) hydrochlorothiazide 25 mg tablet 25 mg PO DAILY 90 days #90 tabs 03/06/23 triamcinolone acetonide 0.1 % 1 appl topical BID #30 grams 03/06/23 topical ointment atorvastatin 20 mg tablet 20 mg PO DAILY #90 tabs 03/18/23 apixaban 5 mg tablet (Eliquis) 5 mg PO BID #60 tabs 05/09/23 metoprolol succinate 25 mg 25 mg PO BID #60 tabs 05/09/23 tablet,extended release 24 hr Allergies Allergy/AdvReac Type Severity Reaction Status Date / Time shellfish derived Allergy Severe DIFFICULTY Verified 05/06/23 15:51 BREATHING,HIVES amlodipine Allergy Unknown leg edema Verified 05/06/23 15:51 lisinopril Allergy Unknown hyperkalemi Verified 05/06/23 15:51 a Penicillins [PENICILLINS] Allergy Unknown HIVES Verified 05/06/23 15:51 Review of Systems Cardiovascular: Cardiovascular: Denies chest pain, Denies chest pain at rest, Reports rapid heart rate, Reports palpitations and Reports dyspnea Respiratory: Respiratory: Reports dyspnea Endocrine: Endocrine: Reports palpitations PMFSH Past Medical History Medical History (Updated 05/09/23 @ 16:48 by Enmanuel Rizzo) Diabetes mellitus Essential hypertension History of facial injury Hyperkalemia Hypovitaminosis D Normocytic anemia Pure hypercholesterolemia Screening for prostate cancer Surgical History (Updated 05/06/23 @ 15:46 by JOSE Yip) History of atrial septal defect repair History of colonoscopy History of hydrocele History of mandibular surgery History of surgical procedure on mouth Family History Family History Father Liver disease Alcohol abuse Substance use disorder Mother Diabetes Hypertension History of coronary artery bypass graft Social History Social History Household Members: Significant Other Household Members Other:: iris Housing: House Alcohol intake: current Alcohol intake frequency: holidays/special occasions only Alcohol type: beer Patient Tobacco Use Status: Never used Tobacco Smoked in Last 30 Days: No e-Cigarette/Vaping Use: Never Used Second Hand Smoke Exposure: No Use of substances other than those prescribed or required for medical reasons: No Advance Directives: No service: No Current occupational status: employed 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 Current occupational exposures/hazards: No Cognitive needs: No Hearing needs: No Vision needs: Yes Physical Exam ED Vital Signs: Vital Signs - 24 hr 05/09/23 12:51 05/09/23 13:01 05/09/23 16:48 Temperature 98.2 F 98.3 F Pulse Rate 118 H 71 Respiratory Rate 15 13 Blood Pressure 150/78 H 136/85 Pulse Oximetry 98 98 Oxygen Delivery Method Room Air Room Air BMI result Body Mass Index 23.5 Const General: healthy appearing, comfortable, no acute distress, alert and awake Nutritional Appearance: well nourished Orientation/consciousness: patient oriented x3 HENMT Head: Yes normocephalic and Yes atraumatic Eyes Eyelids: Yes eyelids normal Conjunctivae: conjunctivae normal Sclerae: sclerae normal Corneas: corneas normal Pupils: Equal, round and reactive pupils present EOM: EOMs intact bilaterally Neck Neck: Yes full ROM Resp Effort & Inspection: normal respiratory effort, able to speak in complete sen tences, no audible wheezes and not labored Auscultation: clear to auscultation bilaterally Cardio Rhythm: abnormal rhythm and regular rhythm Skin General skin exam: no rashes or lesions noted and elasticity normal Neuro General: patient oriented x3 Cranial nerves: Yes Equal, round and reactive pupils present and Yes Bilaterally intact EOM present Cognition (Neuro): normal cognition Extrem Other: Moving all extremities well without any obvious deformities Course Reevaluation(s) Reevaluation #1: Patient's CHADS2 Vasc score is a 3 anticoagulation is recommended. Risks and benefits were discussed with the patient and he agrees to start anticoagulation Medical Decision Making Medical Decision Making [facility] Narrative: The patient apparently had rapid AFib with RVR prior to presenting to the ER. At the time of my evaluation he received metoprolol in the cardiology office, he remains in atrial fibrillation was apparently new for him. His blood work reveals a hyponatremia of 129 hypokalemia of 3.2. Easily treated with IV fluids and oral potassium. I discussed with Cardiology, Dr Suarez who recommends anticoagulation and admission. I discussed this with the patient and he wishes to sign out against medical advice. He does not believe that he needs to be admitted because he feels well overall. I explained the risks of signing out against medical advice notably risk of stroke and the patient is able to verbalize and repeat back that he understands. He is willing to stay for electrolyte correction but does not want to be admitted. Cardiology recommends discharge the patient with anticoagulation, metoprolol 25 mg b.i.d. and stopping the patient's hydrochlorothiazide Differential Diagnosis Atrial fibrillation Irregular heartbeat SVT Hypokalemia Hyponatremia Admission/Observation Consideration of admission/observation: Escalation of care including admission/observation considered Recommended admission for atrial fibrillation, new onset but the patient declines admission. He will leave against medical advice Consult Healthcare Provider Management of the patient was discussed with: Production Troubleshooter (CardiologyErick who recommends additional medications as well as admission) Lab Data [facility] Lab Attestation statement: I reviewed the patient's lab results. Patient has a mild anemia of 11.1 and 34.6. No electrolyte abnormalities including a sodium of 120 past chloride is low at 93. Patient is a known diabetic with to DKA. Renal function within normal limits 05/09/23 13:19 05/09/23 13:19 Labs: Lab Results 05/09/23 05/09/23 05/09/23 Range/Units 13:19 13:19 13:19 WBC 6.3 (4.8-10.8) X10*3/uL RBC 4.20 L (4.60-5.80) X10*6/uL Hgb 11.1 L (14.0-18.0) g/dl Hct 34.6 L (42.0-52.0) % MCV 82.4 (80.0-98.0) fL MCH 26.4 L (27.0-33.0) pg MCHC 32.1 (31.0-36.0) g/dl RDW 14.7 (11.0-16.0) % Plt Count 330 (160-400) X10*3/uL MPV 9.2 L (9.4-12.4) fL Immature Gran % (Auto) 0.3 (0.0-0.4) % Neut % (Auto) 69.4 (45-73) % Lymph % (Auto) 21.5 (20-40) % Morrison % (Auto) 6.5 (2-11) % Eos % (Auto) 1.7 (0-4) % Baso % (Auto) 0.6 (0-2) % Lymph # (Auto) 1.4 (1.2-4.9) X10*3/uL Morrison # (Auto) 0.4 (0.1-1.2) X10*3/uL Eos # (Auto) 0.1 (0.0-0.4) X10*3/uL Baso # (Auto) 0.0 (0.0-0.2) X10*3/uL Abs Immat Gran (auto) 0.02 (0.00-0.03) X10*3/uL Absolute Neuts (auto) 4.4 (2.0-8.3) x10*3/uL Absolute Nucleated RBC 0.000 (0.0-0.012) X10*3/uL Nucleated RBC % (auto) 0.0 (0.0-0.2) /100WBC PT 11.1 (10.0-13.1) SEC INR 1.0 (0.9-1.1) APTT 30.7 (26.0-36.4) SEC Sodium 129 L (135-145) mmol/L Potassium 3.2 L D (3.3-5.1) mmol/L Chloride 93 L (96-108) mmol/L Carbon Dioxide 23 (22-29) mmol/L Anion Gap 16 (12-20) BUN 16 (9-16) mg/dL Creatinine 1.06 (0.5-1.4) mg/dL Estim Creat Clear Calc 61.4 Estimated GFR > 60 Random Glucose 196 H (60-115) mg/dL Calcium 9.8 (8.4-10.2) mg/dL Magnesium 1.6 (1.6-2.6) mg/dL Total Bilirubin 0.5 (0.0-1.0) mg/dL AST 16 (5-37) U/L ALT 10 (0-40) U/L Alkaline Phosphatase 81 (39-117) U/L Total Protein 7.4 (6.5-8.0) g/dL Albumin 4.3 (3.5-5.0) g/dL Independent Interpretation I performed an independent interpretation of an: EKG (Atrial fibrillation the rate of 99 beats per minute) External Record Review External record reviewed: Office record and Outpatient record Prescription Management I considered prescription management with: Other (Anticoagulation, rate control with metoprolol) Chronic Conditions Patient?s care impacted by: Diabetes and Hypertension Discharge Plan Discharge Clinical Impression: Atrial fibrillation, Acute hyponatremia, Acute hypokalemia Patient Disposition: Left Against Medical Advice Instructions: A-fib (Atrial Fibrillation) (ED), Blood Thinners (ED) Additional Instructions: Your heart is in an abnormal rhythm called atrial fibrillation. We recommended that you be admitted to the hospital for further cardiology evaluation Your electing to leave against medical advice Atrial fibrillation puts you at increased risk for stroke, heart failure and heart strain We recommend that you start taking a blood thinner called Eliquis as prescribed You should start taking metoprolol 25 mg twice daily to help control your heart rate You should stop taking the hydrochlorothiazide Turn for any new or worsening symptoms immediately Prescriptions: New Eliquis 5 mg tablet 5 mg PO BID Qty: 60 0RF metoprolol succinate 25 mg tablet extended release 24 hr 25 mg PO BID Qty: 60 0RF No Action metformin 1,000 mg tablet 1,000 mg PO BID Qty: 180 2RF hydralazine 25 mg tablet 25 mg PO TID 30 Days Qty: 90 3RF cholecalciferol (vitamin D3) 25 mcg (1,000 unit) capsule 25 mcg PO DAILY 90 Days Qty: 90 1RF triamcinolone acetonide 0.1 % ointment 1 appl topical BID Qty: 30 1RF hydrochlorothiazide 25 mg tablet 25 mg PO DAILY 90 Days Qty: 90 0RF atorvastatin 20 mg tablet 20 mg PO DAILY Qty: 90 0RF Hold Instructions: Doctor's Order cyanocobalamin (vitamin B-12) [Vitamin B-12] 1,000 mcg Tablet 1,000 mcg PO DAILY Qty: 90 3RF Stand Alone Forms: Against Medical Advice
[2023-05-09 16:48] VITALS: BP 136/85; PULSE 71; RESP 13; TEMP 36.8; O2SAT 98
[2023-05-09] MEDS: Apixaban 5 MG TABLET PO (16:56)
[2023-05-09] MEDS: Potassium Chloride ER 20 MEQ TAB.ER.PRT 40 MEQ PO (16:56)
[2023-05-09] MEDS: 0.9 % Sodium Chloride 1,000 ML 999 ML IV (16:58)
== END 2023-05-09 18:26 | disposition left against medical advice (07) ==
PROVIDERS: Physician Assistant Medical; Emergency Provider Emergency Medicine; PCP Internal Medicine
DX: I48.20 Chronic atrial fibrillation, unspecified (principal); E87.1 Hypo-osmolality and hyponatremia; E87.6 Hypokalemia; E11.9 Type 2 diabetes mellitus without complications; I10 Essential (primary) hypertension; E78.5 Hyperlipidemia, unspecified; Z79.84 Long term (current) use of oral hypoglycemic drugs; Z79.899 Other long term (current) drug therapy
CPT/HCPCS: 36415; 80053; 83735; 85025; 85610; 85730; 93005; 99285

== ENCOUNTER → 2023-05-22 11:01 | Outpatient (BNV) | payer MEDICARE, SELFPAY | PROVIDERS: PCP Internal Medicine; Visit Provider Internal Medicine | DX: I34.0 Nonrheumatic mitral (valve) insufficiency (principal); I34.81 Nonrheumatic mitral (valve) annulus calcification | CPT/HCPCS: 93306 ==

== ENCOUNTER → 2023-05-22 11:55 | Outpatient (REF) | payer MEDICARE, SELFPAY ==
--- NOTE | 2023-05-22 11:01 | CA_ITS ---
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 Study Quality: Adequate Conclusions: - The left ventricular systolic function is normal. The calculated ejection fraction is 59% by biplane method. - Evidence suggests grade II (moderate) diastolic dysfunction. - The left atrium is moderately dilated. - There is mild mitral valve regurgitation. Findings Left Ventricle Normal left ventricular cavity size. There is mildly increased left ventricular wall thickness. The left ventricular systolic function is normal. The calculated ejection fraction is 59% by biplane method. There is no evidence of regional wall motion abnormalities. Evidence suggests grade II (moderate) diastolic dysfunction. Right Ventricle Mildly increased right ventricular cavity size. There is normal right ventricular systolic function. Atria The left atrium is moderately dilated. There is no evidence of interatrial shunt by color Doppler. The right atrium is normal in size. Aortic Valve There is a normal trileaflet aortic valve. There is no aortic valve stenosis. There is no aortic valve regurgitation. Mitral Valve There is mild anterior mitral leaflet thickening. There is mild mitral annular calcification. There is bowing of the anterior mitral leaflet without obvious prolapse. There is mild mitral valve regurgitation. There is no mitral valve stenosis. Pulmonic Valve There is trace pulmonic valve regurgitation. Tricuspid Valve Normal tricuspid valve structure. There is trace tricuspid valve regurgitation. There is no evidence of pulmonary hypertension. Great Vessels The asc aorta is normal in size. Venous The inferior vena cava is normal in size and collapses greater than 50% with inspiration. Pericardium/Pleural There is no evidence of pericardial effusion. Prior Study Comparison No significant change compared to prior study dated: 09/01/2013. Measurements 2D Linear Measurements IVSd: 1.20 0.6-0.9/0.6-1.0 cm LVIDd: 5.00 3.9-5.3/4.2-5.9 cm LVIDd Index: 2.82 2.4-3.2/2.2-3.1 cm/m2 LVIDs: 3.60 2.0-3.6 cm LVPWd: 1.10 0.7-1.1 cm LA Diam: 4.40 2.7-3.8/3.0-4.0 cm LAIDs Index: 2.49 1.5-2.3 cm/m2 LV Mass: 274.58 67-162/88-224 g LV Mass Index: 155.13 43-95/49-115 g/m2 LVOT Diam: 2.20 3.0+(-)1.3 cm 2D Systolic Function EF 4C: 61.80 >55% EF 2C: 57.10 >55% EF BiP: 59.30 >55% Mitral Valve MV VTI: 0.55 MV Pk José Miguel: 1.43 MV Mn José Miguel: 0.62 MV Pk Grad: 8.00 MV Mn Grad: 2.00 MV Pk E: 1.10 MV PK A: 0.69 MV Decel Time: 409.00 E/A: 1.60 E'Lateral: 5.22 E'Medial: 5.44 E/E' Med: 20.20 E/E' Lat: 21.10 PHT: 138.00 MVA PHT: 1.59 MVA Continuity: 1.40 Decel [place]: 2.37 MR Vol - PW Dopp: 25.63 MR VTI: 2.33 MR ERO: 11.00 MR Alias José Miguel: 0.39 MR RAD: 0.50 Aortic Valve AoV Pk José Miguel: 1.12 AoV Mn José Miguel: 0.72 AoV VTI: 0.29 AoV Pk Grad: 5.00 Aov Mn Grad: 2.00 JAVIER Cont.VTI: 2.64 LVOT LVOT Pk José Migule: 0.79 LVOT Mn José Miguel: 0.45 LVOT VTI: 0.20 LVOT Pk Grad: 2.00 LVOT Mn Grad: 1.00 LVOT Diam: 2.20 LVOT Area: 3.80 Diastolic Function MV Pk E: 1.10 MV Pk A: 0.69 E/A: 1.60 E'Medial: 5.44 E/E' Med: 20.20 E' Laterial: 5.22 E/E' Lat: 21.10 Right Ventricle TAPSE (mm): 24.80 TVS' José Miguel: 8.27 Tricuspid Valve TR Pk José Miguel: 2.65 TR Pk Grad: 28.00 RA Press: 3.00 RVSP: 31.00 Great Vessels Aorta Sinus of Valsalva: 4.20 2.0-3.5 cm Ao Asc: 3.00 2.1-3.4 cm Updated in Other Vendor System with Status of Final Lonnie Preston MD electronically signed on 05/24/2023 11:27:59 AM with status of Final
== END ==
LOC: HO.CARD 11:55
PROVIDERS: PCP Internal Medicine; Visit Provider Internal Medicine
DX: I34.0 Nonrheumatic mitral (valve) insufficiency (principal); Z87.74 Personal history of (corrected) congenital malformations of heart and circulatory system
CPT/HCPCS: 93306

== ENCOUNTER 2023-06-16 09:18 | Outpatient (AMB) | payer MEDICARE, SELFPAY ==
[2023-06-16 09:36] VITALS: BP 120/62; PULSE 52; BMI 24.2
--- NOTE | 2023-06-16 09:36 | MHC.OFFVIS ---
Intake Vital Signs 06/16/23 09:36 Height 5 ft 7 in Weight 154 lb 5.177 oz BMI 24.2 BP 120/62 Blood Pressure Location Lt brachial Position Sitting Pulse 52 Pulse Source Auscultation Intake Visit Reasons: s/p echo/ stress echo/ HS Intake Note: s/p echo/stress echo/HS Party Plan Demonstrator Required: No Allergies shellfish derived Allergy (Severe, Verified 06/16/23 09:41) DIFFICULTY BREATHING,HIVES amlodipine Allergy (Unknown, Verified 06/16/23 09:41) leg edema lisinopril Allergy (Unknown, Verified 06/16/23 09:41) hyperkalemia Penicillins [PENICILLINS] Allergy (Unknown, Verified 06/16/23 09:41) HIVES Medication List - Last Reconciled 06/16/23 by Annette Martinez NP-C apixaban (Eliquis) 5 mg PO BID atorvastatin 20 mg PO DAILY cholecalciferol (vitamin D3) 25 mcg PO DAILY 90 days cyanocobalamin (vitamin B-12) (Vitamin B-12) 1,000 mcg PO DAILY hydralazine 25 mg PO TID 30 days metformin 1,000 mg PO BID metoprolol succinate ER 25 mg PO BID triamcinolone acetonide 0.1% 1 appl topical BID HPI s/p echo/ stress echo/ HS HPI Details Julio is a 67-year-old male with past medical history of diabetes, hypertension, remote ASD repair, right bundle branch block, mitral valve disease, with newer finding of atrial fibrillation during stress test who presents for follow-up after stress test and echocardiogram. Today he reports he has been doing well since his last visit. He denies any concerning symptoms like shortness of breath or chest discomfort. He denies palpitations, dizziness, presyncope, syncope, PND, orthopnea or edema. He tells me he walks a lot. He has been taking Eliquis as directed. No bleeding issues reported. 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 [facility] Medical History Diabetes mellitus Essential hypertension History of facial injury Hyperkalemia Hypovitaminosis D Normocytic anemia Pure hypercholesterolemia Screening for prostate cancer Surgical History History of atrial septal defect repair History of colonoscopy History of hydrocele History of mandibular surgery History of surgical procedure on mouth Family History Father Liver disease Alcohol abuse Substance use disorder Mother Diabetes Hypertension History of coronary artery bypass graft Social History Household Members: Significant Other Household Members Other:: iris Housing: House Alcohol intake: current Alcohol intake frequency: holidays/special occasions only Alcohol type: beer Patient Tobacco Use Status: Never used Tobacco e-Cigarette/Vaping Use: Never Used Second Hand Smoke Exposure: No service: No Current occupational status: employed 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 Current occupational exposures/hazards: No Cognitive needs: No Hearing needs: No Vision needs: Yes Review of Systems Const All systems reviewed & are unremarkable except as noted in HPI and below ENT Denies dizziness Card Denies chest pain, Denies chest pain at rest, Denies chest pain with activity, Denies rapid heart rate, Denies pedal edema, Denies edema, Denies leg edema, Denies lightheadedness, Denies palpitations, Denies dyspnea, Denies dyspnea on exertion and Denies orthopnea Resp Denies cough, Denies dyspnea and Denies dyspnea on exertion GI Denies hematochezia and Denies change in stool character Musc Denies abnormal gait, Denies limited range of motion, Denies muscle cramps, Denies muscle weakness, Denies numbness, Denies radiating pain into limb, Denies stiffness and Denies tingling Neuro Denies abnormal gait, Denies dizziness, Denies numbness and Denies tingling Endo Denies palpitations Physical Exam Vital Signs: Last Vital Signs Pulse 47 L 06/16/23 09:36 BP 120/62 06/16/23 09:36 BMI result Body Mass Index 24.2 Const General: cooperative, healthy appearing, comfortable and no acute distress Orientation/consciousness: patient oriented x3 Neck Neck: Yes normal visual inspection Resp Effort & Inspection: normal respiratory effort Auscultation: clear to auscultation bilaterally, no crackles, no rales, no rhonchi and no wheezes Cardio Jugular venous distension: no JVD Rate: regular rate Rhythm: regular rhythm Heart sounds: S1 normal heart sound present, S2 normal heart sound present, no murmurs and no rubs Neuro General: patient oriented x3 Extrem General: Yes normal to inspection Psych Appearance: grossly normal Mental Status: mental status grossly normal Speech and movement: Normal speech and movement present Assessment & Plan Assessment & Plan (1) Paroxysmal A-fib: Code(s): I48.0 - Paroxysmal atrial fibrillation Plan: Newer finding of paroxysmal atrial fibrillation as seen during stress test. With exercise he went from sinus rhythm to atrial fibrillation. He was seen in the emergency room for further evaluation and treatment. His heart rate was controlled with the use of metoprolol. He was discharged with metoprolol 25 mg b.i.d.. He was started on Eliquis for anticoagulation. He has had no bleeding issues. His pulse is very regular on examination today. No concern for AFib at present. He has not been feeling any heart palpitations. He does not recall feeling palpitations the time he was in AFib. Reviewed the diagnosis of AFib, stroke risk with AFib, need for medication management with him. He states understanding. Pulse rate is on the slower side but denies any fatigue, lightheadedness. Will check a Holter monitor to assess average heart rate and for PAF. Will continue Eliquis. Cardiology follow-up 6 months, sooner if needed (2) Non-rheumatic mitral regurgitation: Code(s): I34.0 - Nonrheumatic mitral (valve) insufficiency Plan: Prior echo from 2013 makes mention of mitral valve prolapse, [id number] MR. A repeat echo done 05/22/2023 shows EF 59%, grade 2 diastolic dysfunction, left atrium moderately dilated and mild MR. No significant mitral murmur noted on examination. (3) History of atrial septal defect repair: Comment: 1975 Code(s): Z87.74 - Personal history of (corrected) congenital malformations of heart and circulatory system (4) RBBB: Code(s): I45.10 - Unspecified right bundle-branch block Plan: Stress echocardiogram done on 05/09/2023 shows no EKG or echo evidence of ischemia. Right bundle branch block May be related to his prior surgery. (5) Essential hypertension: Code(s): I10 - Essential (primary) hypertension Plan: Good at present time. No med changes made Medications: Changed From apixaban (Eliquis) 5 mg PO BID 60 tabs 0RF To apixaban (Eliquis) 5 mg PO BID 90 days 180 tabs 3RF From metoprolol succinate ER 25 mg PO BID 60 tabs 0RF To metoprolol succinate ER 25 mg PO BID 90 days 180 tabs 1RF Coding Level of Care Code Est Pt Level 4 (90913) Diagnoses Paroxysmal A-fib I48.0 Non-rheumatic mitral regurgitation I34.0 History of atrial septal defect repair Z87.74 RBBB I45.10 Essential hypertension I10 Time Spent (min) 26 Comment chart review, document, interview, assess
== END 2023-06-16 10:17 | disposition home or self-care (01) ==
PROVIDERS: PCP Internal Medicine; Referring Provider Internal Medicine; Visit Provider Nurse Practitioner Family
DX: I48.0 Paroxysmal atrial fibrillation (principal); I34.0 Nonrheumatic mitral (valve) insufficiency; Z87.74 Personal history of (corrected) congenital malformations of heart and circulatory system; I45.10 Unspecified right bundle-branch block; I10 Essential (primary) hypertension
CPT/HCPCS: 99214

== ENCOUNTER → 2023-06-16 09:18 | Outpatient (BNVA) | payer MEDICARE, OTHER, SELFPAY | PROVIDERS: PCP Internal Medicine; Referring Provider Internal Medicine; Visit Provider Nurse Practitioner Family | DX: I48.0 Paroxysmal atrial fibrillation (principal); I34.0 Nonrheumatic mitral (valve) insufficiency; I45.10 Unspecified right bundle-branch block; I10 Essential (primary) hypertension; Z87.74 Personal history of (corrected) congenital malformations of heart and circulatory system; Z79.01 Long term (current) use of anticoagulants | CPT/HCPCS: 99212 ==

== ENCOUNTER → 2023-07-14 08:45 | Outpatient (REF) | payer MEDICARE, SELFPAY | LOC: HO.CARD 08:45 | PROVIDERS: Visit Provider Nurse Practitioner Family | DX: I48.0 Paroxysmal atrial fibrillation (principal) | CPT/HCPCS: 93225 ==

== ENCOUNTER → 2023-07-22 09:01 | Outpatient (REF) | payer MEDICARE, SELFPAY | LOC: HO.CARD 09:01 | PROVIDERS: PCP Internal Medicine; Visit Provider Nurse Practitioner Family | DX: I48.0 Paroxysmal atrial fibrillation (principal) | CPT/HCPCS: 93225 ==

== ENCOUNTER → 2023-07-22 09:14 | Outpatient (BNV) | payer MEDICARE, SELFPAY | PROVIDERS: PCP Internal Medicine; Visit Provider Internal Medicine | DX: I47.10 Supraventricular tachycardia, unspecified (principal) | CPT/HCPCS: 93227 ==

== ENCOUNTER 2023-09-13 09:12 | Outpatient (REF) | payer MEDICARE, SELFPAY ==
[2023-09-13 09:22] LABS: MANUAL DIFF FLAG NO
[2023-09-13 10:08] LABS: Basophils Absolute Auto 0.1 X10*3/uL (0.0-0.2); Basophils Percent Auto 0.9 % (0-2); Eosinophils Absolute Auto 0.3 X10*3/uL (0.0-0.4); Eosinophils Percent Auto 4.4 % (0-4); Hematocrit 34.3 % (42.0-52.0); Hemoglobin 10.6 g/dl (14.0-18.0); Imm Gran Abs Auto 0.03 X10*3/uL (0.00-0.03); Imm Gran Pct Auto 0.4 % (0.0-0.4); Lymphocytes Absolute Auto 2.1 X10*3/uL (1.2-4.9); Mean Corpuscular HGB Conc 30.9 g/dl (31.0-36.0); Mean Corpuscular Hemoglobin 25.6 pg (27.0-33.0); Mean Corpuscular Volume 82.9 fL (80.0-98.0); Mean Platelet Volume 9.6 fL (9.4-12.4); Monocytes Absolute Auto 0.7 X10*3/uL (0.1-1.2); Monocytes Percent Auto 9.2 % (2-11); Neutrophils Absolute Auto 3.9 x10*3/uL (2.0-8.3); Neutrophils Percent Auto 55.1 % (45-73); Platelet Count 345 X10*3/uL (160-400); Red Blood Count 4.14 X10*6/uL (4.60-5.80); Red Cell Distribution Width 15.1 % (11.0-16.0)
[2023-09-13 10:31] LABS: Alanine Aminotransferase 13 U/L (0-40); Albumin Level 4.4 g/dL (3.5-5.0); Alkaline Phosphatase 97 U/L (39-117); Anion Gap 13 (12-20); Aspartate Amino Transferase 20 U/L (5-37); Bilirubin Total 0.4 mg/dL (0.0-1.0); Blood Urea Nitrogen 12 mg/dL (9-16); Calcium 10.2 mg/dL (8.4-10.2); Carbon Dioxide 27 mmol/L (22-29); Chloride 107 mmol/L (96-108); Cholesterol 152 mg/dL (<200); Estimated Glomerular Filt Rate 58; Glucose Fasting 111 mg/dL (60-99); HDL Cholesterol 57 mg/dL (>40); Iron 38 mcg/dL (45-160); LDL Cholesterol Calculated 78 mg/dL (<100); Percent Iron Saturation 9 % (15-50); Potassium 5.9 mmol/L (3.3-5.1); Sodium 141 mmol/L (135-145); Total Iron Binding Capacity 416 mcg/dL (228-428); Total Protein 7.6 g/dL (6.5-8.0); Triglycerides 88 mg/dL (<150); Unsaturated Iron Binding 378 ug/dL
[2023-09-13 10:39] LABS: Creatinine Urine 100.58 mg/dL; Microalbumin Urine < 5.0 mg/L
[2023-09-13 10:46] LABS: Vitamin D 25-OH Total 55.6 ng/mL (>30)
[2023-09-13 11:00] LABS: Vitamin B12 952 pg/mL (200-900)
== END 2023-09-13 09:13 | disposition home or self-care (01) ==
LOC: HO.LAB 09:12
PROVIDERS: PCP Internal Medicine; Visit Provider Internal Medicine
DX: D64.9 Anemia, unspecified (principal); E55.9 Vitamin D deficiency, unspecified; E78.5 Hyperlipidemia, unspecified; E53.8 Deficiency of other specified B group vitamins; E11.9 Type 2 diabetes mellitus without complications
CPT/HCPCS: 36415; 80053; 80061; 82043; 82306; 82570; 82607; 82746; 83540; 85025

== ENCOUNTER 2023-09-17 10:32 | Outpatient (AMB) | payer MEDICARE, SELFPAY ==
--- NOTE | 2023-09-17 10:39 | A.OFFPC_ITS ---
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 Required: No Accompanied by: Self / Same As Patient Allergies shellfish derived Allergy (Severe, Verified 09/17/23 10:56) DIFFICULTY BREATHING,HIVES amlodipine Allergy (Unknown, Verified 09/17/23 10:56) leg edema lisinopril Allergy (Unknown, Verified 09/17/23 10:56) hyperkalemia Penicillins [PENICILLINS] Allergy (Unknown, Verified 09/17/23 10:56) HIVES Medication List - Last Reconciled 09/17/23 by Cynthia Jackson MD apixaban (Eliquis) 5 mg PO BID 90 days atorvastatin 20 mg PO DAILY cholecalciferol (vitamin D3) 25 mcg PO DAILY 90 days cyanocobalamin (vitamin B-12) (Vitamin B-12) 1,000 mcg PO DAILY hydralazine 25 mg PO TID 30 days metformin 1,000 mg PO BID metoprolol succinate ER 25 mg PO BID 90 days sodium polystyrene sulfonate 15 grams PO DAILY 1 day triamcinolone acetonide 0.1% 1 appl topical BID Tobacco use date assessed: 05/06/23 Fall risk assessment: No Falls in past year Last assessed Fall Risk: 09/17/23 Dental Screening Dental Screen Date: 09/17/23 Did you have a dental visit in the last 12 months?: Yes Did you have a dental problem in the last 6 months where you did not have access to dental care?: No Was dental information given to patient?: Patient has dentist HPI HPI Comments History of Present Illness Details This is a 68-year-old male with diabetes mellitus type 2, hypertension, hyperlipidemia, paroxysmal atrial fibrillation and hyperkalemia that comes today for follow-up on recent labs. A1c within goal. LDL close to goal. Blood pressure stable. On chronic anticoagulation for atrial fibrillation and denies any active bleeding. Atrial fibrillation is follow by cardiology. Has elevated potassium but renal function is within normal limits. Denies any chest pain, palpitations or shortness of breath. Was given medication to decrease potassium but has not take it. EKG was ordered to rule out peaked T-waves. He will do EKG tomorrow. He will see nephrology next month. PFSH Medical History History of facial injury Hypovitaminosis D Normocytic anemia Screening for prostate cancer Hyperkalemia Pure hypercholesterolemia Essential hypertension Diabetes mellitus Surgical History History of mandibular surgery History of surgical procedure on mouth History of colonoscopy History of atrial septal defect repair History of hydrocele Family History Father Liver disease Alcohol abuse Substance use disorder Mother Diabetes Hypertension History of coronary artery bypass graft Social History Household Members: Significant Other Household Members Other:: iris Housing: House Alcohol intake: current Alcohol intake frequency: holidays/special occasions only Alcohol type: beer Patient Tobacco Use Status: Never used Tobacco e-Cigarette/Vaping Use: Never Used Second Hand Smoke Exposure: No service: No Current occupational status: employed 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 Patrice Cadet, Concepcion Dutton, Jere Qiu and colleagues, with an educational manfred from [employer]. Review of Systems Const All systems reviewed & are unremarkable except as noted in HPI and below Eyes Reports no additional complaints, Denies change in vision and Denies other visual disturbances Card Denies chest pain at rest, Denies chest pain with activity, Denies edema, Denies irregular heart rhythm, Denies claudication, Denies dyspnea, Denies dyspnea on exertion, Denies orthopnea, Denies paroxysmal nocturnal dyspnea and Denies slow heart rate Resp Denies cough, Denies dyspnea and Denies dyspnea on exertion GI Denies abdominal pain, Denies change in bowel habits, Denies excessive flatus, Denies nausea and Denies vomiting Denies urinary hesitancy, Denies urinary incontinence and Denies urinary urgency Musc Denies abnormal gait, Denies atrophy, Denies deformity and Denies limited range of motion Skin/Breast Denies bleeding lesions, Denies changing lesions and Denies rash Neuro Denies abnormal gait and Denies lack of coordination Physical exam (Primary Care) Vital Signs: Last Vital Signs BP 132/72 09/17/23 10:40 BMI result Body Mass Index 24.7 Tobacco/Smoking Status: Tobacco use Status Tobacco use date assessed 05/06/23 09/17/23 10:42 Patient Tobacco Use Status Never used Tobacco 09/17/23 10:42 e-Cigarette/Vaping Use Never Used 09/17/23 10:42 Thrive Assessment: Date of Thrive Assessment Date Thrive assessed 05/06/23 09/17/23 10:42 Eyes General: appearance normal, both eyes and all related structures Eyelids: Yes eyelids normal Conjunctivae: conjunctivae normal Neck Neck: Yes normal visual inspection and Yes supple Resp Effort & Inspection: normal respiratory effort Auscultation: clear to auscultation bilaterally Cardio Jugular venous distension: no JVD Rate: regular rate Rhythm: regular rhythm Heart sounds: S1 normal heart sound present and S2 normal heart sound present Extrem General: Yes full ROM Office Procedures Flu Questionnaire Does the patient have a severe egg allergy?: No Results AMB Hemoglobin A1c AMB Hemoglobin A1c 6.0 % Last Edit by JOSE Yip on 09/17/23 10:5 3 Immunizations flu vacc [id number] 6mos up(PF) 60 mcg(15 mcgx4)/0.5 mL IM syringe Performing Provider: Cynthia Jackson MD [facility] Documented (not given) by: JOSE Yip on 09/17/23 10:51 Reason Not Given: Patient Refused Results Reviewed Results Reviewed: Laboratory Last Values Hgb A1c (Clinic) 6.0 % (4.0-6.0) 09/17/23 10:52 Assessment and Plan Assessment & Plan (1) Paroxysmal A-fib: Code(s): I48.0 - Paroxysmal atrial fibrillation Plan: Continue metoprolol and Eliquis. Follow-up with Cardiology. The goal is heart rate control. 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 A1c goal is equal or less than 7%. (3) Essential hypertension: Code(s): I10 - Essential (primary) hypertension Plan: Continue hydralazine. Blood pressure goal is equal or less than 130/80. (4) Hyperkalemia: Code(s): E87.5 - Hyperkalemia Plan: Start sodium polystirine sulfate x 1. Do EKG to rule out peaked T-waves. If present causing will be given. Follow-up with nephrology. Repeat potassium in a week. Low-potassium diet was advised. (5) Pure hypercholesterolemia: Code(s): E78.00 - Pure hypercholesterolemia, unspecified Plan: Continue statins. LDL goal less than 70. 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
[2023-09-17 10:40] VITALS: BP 132/72; BMI 24.7
== END 2023-09-17 11:16 | disposition home or self-care (01) ==
PROVIDERS: PCP Internal Medicine; Visit Provider Internal Medicine
DX: I48.0 Paroxysmal atrial fibrillation (principal); E11.9 Type 2 diabetes mellitus without complications; I10 Essential (primary) hypertension; E87.5 Hyperkalemia; E78.00 Pure hypercholesterolemia, unspecified
CPT/HCPCS: 83036; 99214

== ENCOUNTER 2023-09-27 08:49 | Outpatient (REF) | payer MEDICARE, SELFPAY ==
[2023-09-27 09:49] LABS: Potassium 5.2 mmol/L (3.3-5.1)
== END 2023-09-27 08:50 | disposition home or self-care (01) ==
LOC: HO.LAB 08:49
PROVIDERS: PCP Internal Medicine; Visit Provider Internal Medicine
DX: E87.5 Hyperkalemia (principal)
CPT/HCPCS: 36415; 84132

== ENCOUNTER → 2023-09-30 09:08 | Outpatient (REF) | payer MEDICARE, SELFPAY ==
--- NOTE | 2023-09-30 09:14 | ECG_ITS ---
Test Reason : HYPERKALEMIA Blood Pressure : / mmHG Vent. Rate : 048 BPM Atrial Rate : 048 BPM P-R Int : 188 ms QRS Dur : 132 ms QT Int : 494 ms P-R-T Axes : 043 -18 007 degrees QTc Int : 441 ms Sinus bradycardia Right bundle branch block Abnormal ECG When compared with ECG of 09-MAY-2023 13:00, Sinus rhythm has replaced Atrial fibrillation Vent. rate has decreased BY [address] no longer depressed in Anterior leads T wave inversion no longer evident in Anterolateral leads Referred By: Cynthia Jackson Electronically Signed By:Yfn Suarez
== END ==
LOC: HO.CARD 09:08
PROVIDERS: PCP Internal Medicine; Visit Provider Internal Medicine
DX: E87.5 Hyperkalemia (principal)
CPT/HCPCS: 93005

== ENCOUNTER → 2023-09-30 09:14 | Outpatient (BNV) | payer MEDICARE, SELFPAY | PROVIDERS: PCP Internal Medicine; Visit Provider Internal Medicine Cardiovascular Disease | DX: R00.1 Bradycardia, unspecified (principal); R94.31 Abnormal electrocardiogram [ECG] [EKG] | CPT/HCPCS: 93010 ==

== ENCOUNTER 2023-12-22 10:17 | Outpatient (AMB) | payer MEDICARE, SELFPAY ==
--- NOTE | 2023-12-22 10:28 | A.OFFVIS_ITS ---
Intake Vital Signs 12/22/23 10:29 Height 5 ft 7 in Weight 161 lb 13.109 oz BMI 25.3 BP 140/60 H Blood Pressure Location Lt brachial Position Sitting Pulse 53 Intake Visit Reasons: 6 mth f/up DC Intake Note: 6 month follow up Stationary Engineer Required: No Accompanied by: Self / Same As Patient Allergies shellfish derived Allergy (Severe, Verified 12/22/23 10:30) DIFFICULTY BREATHING,HIVES amlodipine Allergy (Unknown, Verified 12/22/23 10:30) leg edema lisinopril Allergy (Unknown, Verified 12/22/23 10:30) hyperkalemia Penicillins [PENICILLINS] Allergy (Unknown, Verified 12/22/23 10:30) HIVES Medication List - Last Reconciled 12/22/23 by Lonnie Preston MD apixaban (Eliquis) 5 mg PO BID 90 days atorvastatin 20 mg PO DAILY cholecalciferol (vitamin D3) 25 mcg PO DAILY 90 days cyanocobalamin (vitamin B-12) (Vitamin B-12) 1,000 mcg PO DAILY hydralazine 25 mg PO TID 30 days hydroxyzine HCl 25 mg PO BEDTIME PRN 20 days metformin 1,000 mg PO BID metoprolol succinate ER 25 mg PO BID triamcinolone acetonide 0.1% 1 appl topical BID HPI HPI Comments History of Present Illness Details Juloi returns for follow-up. Recently seen in consultation regarding right bundle-branch block. Going back to an EKG from almost 20 years ago, he still had right bundle-branch block. Otherwise, patient states that in 1975 had open heart surgery. He believes it was in the top chamber, probably atrial septal defect repair through a sternotomy. However, we do not have any documentation of this. This was done in [place]. He states he had some follow- up after that but somewhat intermittent but no recent cardiology workup. Generally healthy without any major issues. 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 Denies any chest pains or shortness of breath. Takes meds for hypertension, diabetes and dyslipidemia. Otherwise, seems to be doing okay. He recently had a stress test but during the actual test he went into atrial fibrillation. After that, he was put on beta-blockers and also started Eliquis. No issues from that and. [facility] Medical History History of facial injury Hypovitaminosis D Normocytic anemia Screening for prostate cancer Hyperkalemia Pure hypercholesterolemia Essential hypertension Diabetes mellitus Surgical History History of mandibular surgery History of surgical procedure on mouth History of colonoscopy History of atrial septal defect repair History of hydrocele Family History Father Liver disease Alcohol abuse Substance use disorder Mother Diabetes Hypertension History of coronary artery bypass graft Social History Household Members: Significant Other Household Members Other:: iris Housing: House Alcohol intake: current Alcohol intake frequency: holidays/special occasions only Alcohol type: beer Patient Tobacco Use Status: Never used Tobacco e-Cigarette/Vaping Use: Never Used Second Hand Smoke Exposure: No service: No Current occupational status: employed 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 Current occupational exposures/hazards: No Cognitive needs: No Hearing needs: No Vision needs: Yes Review of Systems Const Denies weakness ENT Denies dizziness Card Denies chest pain, Denies chest pain with activity, Denies syncope, Denies rapid heart rate, Denies pedal edema, Denies edema, Denies leg edema, Denies light headedness, Denies palpitations, Denies dyspnea, Denies dyspnea on exertion and Denies orthopnea Resp Denies cough, Denies dyspnea and Denies dyspnea on exertion GI Denies hematochezia and Denies change in stool character Musc Denies abnormal gait, Denies muscle cramps, Denies muscle weakness, Denies numbness, Denies radiating pain into limb and Denies tingling Neuro Denies abnormal gait, Denies dizziness, Denies syncope, Denies numbness, Denies tingling and Denies weakness Endo Denies palpitations Physical Exam Vital Signs: Last Vital Signs Pulse 53 12/22/23 10:29 BP 140/60 H 12/22/23 10:29 BMI result Body Mass Index 25.3 Const General: comfortable and no acute distress Orientation/consciousness: patient oriented x3 HEENT Other: Unremarkable Head: Yes normal to inspection Neck Neck: Yes normal visual inspection Chest Chest palpation & inspection: normal inspection of the chest Resp Auscultation: clear to auscultation bilaterally Cardio Palpation: normal PMI Heart sounds: S1 normal heart sound present, S2 normal heart sound present, no gallops, no murmurs and no rubs GI Palpation (GI): Soft to palpation Back/Spine/Pelvis Other: unremarkable Skin General skin exam: no rashes or lesions noted Neuro General: patient oriented x3 Extrem General: Yes normal to inspection Psych Mental Status: mental status grossly normal Assessment & Plan Assessment & Plan (1) RBBB: Code(s): I45.10 - Unspecified right bundle-branch block (2) History of atrial septal defect repair: Comment: 1975 Code(s): Z87. - Personal history of (corrected) congenital malformations of heart and circulatory system (3) Paroxysmal A-fib: Code(s): I48.0 - Paroxysmal atrial fibrillation (4) Non-rheumatic mitral regurgitation: Code(s): I34.0 - Nonrheumatic mitral (valve) insufficiency Plan On comparison of EKGs, right bundle-branch block itself is chronic. A prior echocardiogram from 2013 described to have mild LV dilatation, LVEF of 60-65%, mild anterior mitral leaflet prolapse and [id number] mitral regurgitation, posteriorly directed jet. In a more recent study from 2022, there was only mild mitral regurgitation. LVEF is preserved at 59%. Mild LVH with moderate diastolic dysfunction. Moderate left atrial dilatation. Exercise echocardiogram was negative for ischemia at 10.1 METS exercise capacity. But he developed atrial fibrillation during the study. Right bundle-branch block could possibly be related to his history of open heart surgery for ASD. No specific management overall. Mitral regurgitation also does not seem clinically significant at this time. With regard to atrial fibrillation, stable on beta-blockers/Eliquis. Follow-up Holter shows sinus rhythm. No specific concerns for driving at this time. Follow-up in 1 year. In the interim, he will call concerns. Coding Level of Care Code Est Pt Level 4 (44261) Diagnoses RBBB I45.10 History of atrial septal defect repair Paroxysmal A-fib I48.0 Non-rheumatic mitral regurgitation I34.0
[2023-12-22 10:29] VITALS: BP 140/60; PULSE 53; BMI 25.3
== END 2023-12-22 10:48 | disposition home or self-care (01) ==
PROVIDERS: PCP Internal Medicine; Visit Provider Internal Medicine
DX: I45.10 Unspecified right bundle-branch block (principal); Z87.74 Personal history of (corrected) congenital malformations of heart and circulatory system; I48.0 Paroxysmal atrial fibrillation; I34.0 Nonrheumatic mitral (valve) insufficiency
CPT/HCPCS: 99214

== ENCOUNTER → 2023-12-22 10:17 | Outpatient (BNVA) | payer MEDICARE, OTHER, SELFPAY | PROVIDERS: PCP Internal Medicine; Visit Provider Internal Medicine | DX: I45.10 Unspecified right bundle-branch block (principal); I48.0 Paroxysmal atrial fibrillation; I34.0 Nonrheumatic mitral (valve) insufficiency; Z87.74 Personal history of (corrected) congenital malformations of heart and circulatory system | CPT/HCPCS: 99212 ==

== ENCOUNTER 2024-01-15 10:56 | Outpatient (REF) | payer MEDICARE, SELFPAY ==
[2024-01-15 11:50] LABS: Potassium 5.2 mmol/L (3.3-5.1)
== END 2024-01-15 10:57 | disposition home or self-care (01) ==
LOC: HO.LAB 10:56
PROVIDERS: PCP Internal Medicine; Visit Provider Internal Medicine
DX: E87.5 Hyperkalemia (principal)
CPT/HCPCS: 36415; 84132

== ENCOUNTER 2024-01-20 09:52 | Outpatient (AMB) | payer MEDICARE, SELFPAY ==
--- NOTE | 2024-01-20 09:54 | MHC.PC.OV ---
Vital Signs 01/20/24 09:57 01/20/24 12:01 Height 5 ft 7 in Weight 160 lb BMI 25.1 BP 144/76 H 145/80 H Blood Pressure Location Lt brachial Lt brachial Position Sitting Sitting Intake Visit Reasons: dm Intake Note: Patient here for a follow up DM Cost Accounting Manager Required: No Accompanied by: Self / Same As Patient Allergies shellfish derived Allergy (Severe, Verified 01/20/24 10:12) DIFFICULTY BREATHING,HIVES amlodipine Allergy (Unknown, Verified 01/20/24 10:12) leg edema lisinopril Allergy (Unknown, Verified 01/20/24 10:12) hyperkalemia Penicillins [PENICILLINS] Allergy (Unknown, Verified 01/20/24 10:12) HIVES Medication List - Last Reconciled 01/20/24 by Cynthia Jackson MD apixaban (Eliquis) 5 mg PO BID 90 days atorvastatin 20 mg PO DAILY cholecalciferol (vitamin D3) 25 mcg PO DAILY 90 days cyanocobalamin (vitamin B-12) (Vitamin B-12) 1,000 mcg PO DAILY hydralazine 25 mg PO TID 30 days hydroxyzine HCl 25 mg PO BEDTIME PRN 20 days metformin 1,000 mg PO BID metoprolol succinate ER 25 mg PO BID triamcinolone acetonide 0.1% 1 appl topical BID Tobacco use date assessed: 01/20/24 Fall risk assessment: No Falls in past year Last assessed Fall Risk: 01/20/24 Dental Screening Dental Screen Date: 01/20/24 Did you have a dental visit in the last 12 months?: Yes Did you have a dental problem in the last 6 months where you did not have access to dental care?: No Was dental information given to patient?: Patient has dentist HPI HPI Comments History of Present Illness Details This is a 68-year-old male with diabetes mellitus type 2, hypertension, pure hypercholesterolemia, paroxysmal atrial fibrillation and 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 A1c within goal. Blood pressure elevated and hydralazine will be increased from 25 mg to 50 mg 3 times a day. Blood pressure will be recheck by nurse navigator in 3 weeks. LDL within goal. On chronic anticoagulation for atrial fibrillation and denies any active bleeding. Potassium still mildly elevated due to renal tubular acidosis type 4 and this is follow by Nephrology. He does follows a low potassium diet. Compliant with medications. Denies any chest pain or shortness of breath. REPLACED BY [facility] Medical History (Updated 01/20/24 @ 12:05 by Cynthia Jackson MD) History of facial injury Hypovitaminosis D Normocytic anemia Screening for prostate cancer Hyperkalemia Pure hypercholesterolemia Essential hypertension Diabetes mellitus Surgical History History of mandibular surgery History of surgical procedure on mouth History of colonoscopy History of atrial septal defect repair History of hydrocele Family History Father Liver disease Alcohol abuse Substance use disorder Mother Diabetes Hypertension History of coronary artery bypass graft Social History Household Members: Significant Other Household Members Other:: iris Housing: House Alcohol intake: current Alcohol intake frequency: holidays/special occasions only Alcohol type: beer Patient Tobacco Use Status: Never used Tobacco e-Cigarette/Vaping Use: Never Used Second Hand Smoke Exposure: No service: No Current occupational status: employed 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 1. Little interest or pleasure in doing things: not at all 2. Feeling down, depressed, or hopeless: not at all 3. Trouble falling or staying asleep, or sleeping too much: not at all 4. Feeling tired or having little energy: not at all 5. Poor appetite or overeating: not at all 6. Feeling bad about yourself - or that you are a failure or have let yourself or your family down: not at all 7. Trouble concentrating on things, such as reading the newspaper or watching television: not at all 8. Moving or speaking so slowly that other people could have noticed. Or the opposite - being so fidgety or restless that you have been moving around a lot more than usual: not at all 9. Thoughts that you would be better off or of hurting yourself in some way: not at all Total score: 0 Depression Screening Interpretation: Negative Depression Screening Done: Yes 21580 - PHQ-9 Billing: Yes Source: Developed by Drs. Patrice Cadet, Concepcion Dutton, Jere Qiu and colleagues, with an educational manfred from [employer]. Thrive Questionnaire Date Thrive assessed: 01/20/24 I am a: Patient What is your living situation today?: I have a steady place to live Within the past 12 months, did the food you bought not last and you didn't have the money to get more?: Never true Within the past 12 months, did you worry whether your food would run out before you got money to buy more?: Never true Do you have trouble paying for medicines?: No Do you have trouble getting transportation to medical appointments?: No Do you have trouble paying your heating and electricity bill?: No Do you have trouble taking care of your child, family member or friend?: No Do you have trouble with day-to-day activities such as bathing, preparing meals, shopping, managing finances, etc.?: No Are you currently unemployed and looking for a job?: No Are you interested in more education?: No Please select the resources that you would like help with: None Currently or been in a relationship where the following occur: no concerns reported THRIVE Score: 0 AUDIT C Alcohol Use Questionnaire (AUDIT-C) 1. How often do you have a drink containing alcohol?: Monthly or less 2. How many drinks containing alcohol do you have on a typical day when you are drinking?: 1 or 2 3. How often do you have six or more drinks on one occasion?: Never Total Score: 1 Score Reviewed/Action Taken: No MK-7 AMB Questionnaire MK-7 Date MK - 7 assessed: 01/20/24 Feeling nervous, anxious, or on edge: 0 = Not at all Not being able to stop or control worryin = Not at all Worrying too much about different things: 0 = Not at all Trouble relaxin = Not at all Being so restless that it is hard to sit still: 0 = Not at all Becoming easily annoyed or irritable: 0 = Not at all Feeling afraid as if something awful might happen: 0 = Not at all Total MK-7 score (0-4 normal; 5-9 mild; 10-14 moderate; 15-21 severe): 0 Source: Developed by Drs. Patrice Cadet, Concepcion Dutton, Jere Qiu and colleagues, with an educational manfred from [employer]. MK-7 Assessment Billing MK-7 Assessment Tool: MK-7 Assessment 40454 Review of Systems Const All systems reviewed & are unremarkable except as noted in HPI and below Eyes Reports no additional complaints, Denies change in vision and Denies other visual disturbances Card Denies chest pain at rest, Denies chest pain with activity, Denies edema, Denies irregular heart rhythm, Denies claudication, Denies dyspnea, Denies dyspnea on exertion, Denies orthopnea, Denies paroxysmal nocturnal dyspnea and Denies slow heart rate Resp Denies cough, Denies dyspnea and Denies dyspnea on exertion GI Denies abdominal pain, Denies change in bowel habits, Denies excessive flatus, Denies nausea and Denies vomiting Denies urinary hesitancy, Denies urinary incontinence and Denies urinary urgency Physical exam (Primary Care) Vital Signs: Last Vital Signs BP 144/76 H 01/20/24 09:57 BMI result Body Mass Index 25.1 Tobacco/Smoking Status: Tobacco use Status Tobacco use date assessed 01/20/24 01/20/24 10:04 Patient Tobacco Use Status Never used Tobacco 01/20/24 10:04 e-Cigarette/Vaping Use Never Used 01/20/24 10:04 PHQ-9: PHQ-9 Score PHQ-9: Total score 0 01/20/24 10:15 Depression Screening Interpretation: Negative Thrive Assessment: Date of Thrive Assessment Date Thrive assessed 01/20/24 01/20/24 10:04 Currently or been in a relationship where the following occur: no concerns reported Resp Effort & Inspection: normal respiratory effort Auscultation: clear to auscultation bilaterally Cardio Jugular venous distension: no JVD Rate: regular rate Rhythm: regular rhythm Heart sounds: S1 normal heart sound present and S2 normal heart sound present Extrem General: Yes full ROM Results AMB Hemoglobin A1c AMB Hemoglobin A1c 6.8 % Last Edit by JOSE Yip on 01/20/24 10:08 Results Reviewed Results Reviewed: Laboratory Last Values Hgb A1c (Clinic) 6.8 % (4.0-6.0) H 01/20/24 09:54 Assessment and Plan Assessment & Plan (1) Paroxysmal A-fib: Code(s): I48.0 - Paroxysmal atrial fibrillation Plan: Continue Eliquis. (2) Diabetes mellitus: Code(s): E11.9 - Type 2 diabetes mellitus without complications Qualifiers: Diabetes mellitus type: type 2 Diabetes mellitus mcfp insulin use: without termite treater helper use Diabetes mellitus complication status: without complication Qualified Code(s): E11.9 - Type 2 diabetes mellitus without complications Plan: Continue metformin. A1c goal is equal or less than 7%. (3) Essential hypertension: Code(s): I10 - Essential (primary) hypertension Plan: Increase hydralazine to 50 mg 3 times a day. Blood pressure goal is equal or less than 130/80. Recheck blood pressure with nurse navigator in 3 weeks. (4) Pure hypercholesterolemia: Code(s): E78.00 - Pure hypercholesterolemia, unspecified Plan: Continue statins. LDL goal is less than 70. (5) RTA (renal tubular acidosis): Comment: type 4 due to longstanding diabetes Code(s): N25.89 - Other disorders resulting from impaired renal tubular function Plan: Follow-up with nephrology. Continue low-potassium diet. Orders: Orders AMB Hemoglobin A1c Today E11.9 - Type 2 diabetes mellitus without complications Vitamin B12 and Folate 4 Months E53.8 - Deficiency of other specified B group vitamins Microalbumin, Random (w Creat) 4 Months E11.9 - Type 2 diabetes mellitus without complications Vitamin D 25-OH Total 4 Months E55.9 - Vitamin D deficiency, unspecified Lipid Panel 4 Months E78.5 - Hyperlipidemia, unspecified Comprehensive [place]. Panel Fast 4 Months E11.9 - Type 2 diabetes mellitus without complications Medications: New hydralazine 50 mg PO TID 30 days 90 tabs 4RF E11.9 - Type 2 diabetes mellitus without complications Changed From triamcinolone acetonide 0.1% 1 appl topical BID 30 grams 1RF To triamcinolone acetonide 0.1% 1 appl topical BID 90 days 80 grams 1RF Discontinued hydralazine Discontinued Reason: Patient Completed Course 25 mg PO TID 30 days 90 tabs 3RF I10 - Essential (primary) hypertension Coding Level of Care Code Est Pt Level 4 (15038) Diagnoses Paroxysmal A-fib I48.0 Type 2 diabetes mellitus without complication, without long-term current use of insulin E11.9 Diabetes mellitus type: type 2 Diabetes mellitus termite treater helper insulin use: without mcfp use Diabetes mellitus complication status: without complication Essential hypertension I10 Pure hypercholesterolemia E78.00 RTA (renal tubular acidosis) N25.89 Additional Codes MK-7 Assessment Billing - MK-7 Assessment Tool: MK-7 Assessment 45298 ([id number]) Time Spent (min) 25
[2024-01-20 09:57] VITALS: BP 144/76; BMI 25.1
[2024-01-20 12:01] VITALS: BP 145/80
== END 2024-01-20 10:23 | disposition home or self-care (01) ==
PROVIDERS: PCP Internal Medicine; Visit Provider Internal Medicine
DX: I48.0 Paroxysmal atrial fibrillation (principal); E11.9 Type 2 diabetes mellitus without complications; I10 Essential (primary) hypertension; E78.00 Pure hypercholesterolemia, unspecified; N25.89 Other disorders resulting from impaired renal tubular function
CPT/HCPCS: 83036; 99214

== ENCOUNTER 2024-05-22 09:13 | Outpatient (REF) | payer MEDICARE, SELFPAY ==
[2024-05-22 11:44] LABS: Alanine Aminotransferase 12 U/L (0-40); Albumin Level 4.2 g/dL (3.5-5.0); Alkaline Phosphatase 84 U/L (39-117); Anion Gap 14 (12-20); Aspartate Amino Transferase 18 U/L (5-37); Bilirubin Total 0.5 mg/dL (0.0-1.0); Blood Urea Nitrogen 10 mg/dL (9-16); Calcium 10.2 mg/dL (8.4-10.2); Carbon Dioxide 23 mmol/L (22-29); Chloride 104 mmol/L (96-108); Cholesterol 119 mg/dL (<200); Estimated Glomerular Filt Rate 48; Glucose Fasting 116 mg/dL (60-99); HDL Cholesterol 37 mg/dL (>40); LDL Cholesterol Calculated 57 mg/dL (<100); Potassium 5.4 mmol/L (3.3-5.1); Sodium 136 mmol/L (135-145); Total Protein 7.3 g/dL (6.5-8.0); Triglycerides 126 mg/dL (<150)
[2024-05-22 12:01] LABS: Vitamin D 25-OH Total 43.9 ng/mL (>30)
[2024-05-22 12:06] LABS: Folate 12.1 ng/mL (> or = 4.0); Vitamin B12 800 pg/mL (200-900)
== END 2024-05-22 09:14 | disposition home or self-care (01) ==
LOC: HO.LAB 09:13
PROVIDERS: PCP Internal Medicine; Visit Provider Internal Medicine
DX: E11.9 Type 2 diabetes mellitus without complications (principal); E55.9 Vitamin D deficiency, unspecified; E78.5 Hyperlipidemia, unspecified; E53.8 Deficiency of other specified B group vitamins
CPT/HCPCS: 36415; 80053; 80061; 82306; 82607; 82746

== ENCOUNTER 2024-05-24 12:56 | Outpatient (REF) | payer MEDICARE, SELFPAY ==
[2024-05-24 13:54] LABS: Creatinine Urine 210.17 mg/dL; Microalbum/Creatinine Ratio Ur 5.7 ug/mg cr (<30)
== END 2024-05-24 12:57 | disposition home or self-care (01) ==
LOC: HO.LNP 12:56
PROVIDERS: Visit Provider Internal Medicine
DX: E11.9 Type 2 diabetes mellitus without complications (principal)
CPT/HCPCS: 82043; 82570

== ENCOUNTER 2024-05-27 09:55 | Outpatient (AMB) | payer MEDICARE, SELFPAY ==
[2024-05-27 10:04] VITALS: BP 124/58; BMI 24.9
--- NOTE | 2024-05-27 10:04 | A.OFFPC_ITS ---
Vital Signs 05/27/24 10:04 Height 5 ft 7 in Weight 159 lb BMI 24.9 BP 124/58 L Blood Pressure Location Lt brachial Position Sitting Intake Visit Reasons: dm Intake Note: Patient here for a follow up DM Supervisor Road Administrator Required: No Accompanied by: Self / Same As Patient Allergies shellfish derived Allergy (Severe, Verified 05/27/24 10:14) DIFFICULTY BREATHING,HIVES amlodipine Allergy (Unknown, Verified 05/27/24 10:14) leg edema lisinopril Allergy (Unknown, Verified 05/27/24 10:14) hyperkalemia Penicillins [PENICILLINS] Allergy (Unknown, Verified 05/27/24 10:14) HIVES Medication List - Last Reconciled 05/27/24 by Cynthia Jackson MD apixaban (Eliquis) 5 mg PO BID 90 days atorvastatin 20 mg PO DAILY cholecalciferol (vitamin D3) 25 mcg PO DAILY 90 days cyanocobalamin (vitamin B-12) (Vitamin B-12) 1,000 mcg PO DAILY hydralazine 50 mg PO TID 30 days hydroxyzine HCl 25 mg PO BEDTIME PRN 20 days metformin 1,000 mg PO BID metoprolol succinate ER 25 mg PO BID triamcinolone acetonide 0.1% 1 appl topical BID 90 days Tobacco use date assessed: 01/20/24 Fall risk assessment: No Falls in past year Last assessed Fall Risk: 05/27/24 Dental Screening Dental Screen Date: 01/20/24 HPI HPI Comments History of Present Illness Details This is a 68-year-old male with diabetes mellitus type 2, hypertension, hyperlipidemia, chronic kidney disease stage 3, paroxysmal atrial fibrillation and renal tubular acidosis type 4 that comes today for follow-up on recent labs. A1c within goal. Blood pressure stable. LDL within goal. GFR has mildly decreased from 58-48. He follows with Nephrology. He has atrial fibrillation well controlled with metoprolol and on chronic anticoagulation. He denies any active bleeding. Atrial fibrillation is follow by cardiology. Has hyperkalemia secondary to renal tubular acidosis type 4 and has no symptoms of hyperkalemia therefore no treatment will be done. EKG will be order and potassium will be repeated. 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 Diabetic eye exam done January of this year was negative for retinopathy. [facility] Medical History (Updated 05/27/24 @ 12:32 by Cynthia Jackson MD) History of facial injury Hypovitaminosis D Normocytic anemia Screening for prostate cancer Hyperkalemia Pure hypercholesterolemia Essential hypertension Diabetes mellitus Surgical History History of mandibular surgery History of surgical procedure on mouth History of colonoscopy History of atrial septal defect repair History of hydrocele Family History Father Liver disease Alcohol abuse Substance use disorder Mother Diabetes Hypertension History of coronary artery bypass graft Social History Household Members: Significant Other Household Members Other:: iris Housing: House Alcohol intake: current Alcohol intake frequency: holidays/special occasions only Alcohol type: beer Patient Tobacco Use Status: Never used Tobacco e-Cigarette/Vaping Use: Never Used Second Hand Smoke Exposure: No service: No Current occupational status: employed 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 Patrice Cadet, Concepcion Dutton, Jere Qiu and colleagues, with an educational manfred from [employer]. Review of Systems Const All systems reviewed & are unremarkable except as noted in HPI and below Card Denies chest pain at rest, Denies chest pain with activity, Denies edema, Denies irregular heart rhythm, Denies claudication, Denies dyspnea, Denies dyspnea on exertion, Denies orthopnea, Denies paroxysmal nocturnal dyspnea and Denies slow heart rate Resp Denies cough, Denies dyspnea and Denies dyspnea on exertion GI Denies abdominal pain, Denies change in bowel habits, Denies excessive flatus, Denies nausea and Denies vomiting Denies urinary hesitancy, Denies urinary incontinence and Denies urinary urgency Musc Denies abnormal gait, Denies atrophy, Denies deformity and Denies limited range of motion Skin/Breast Denies bleeding lesions, Denies changing lesions and Denies rash Neuro Denies abnormal gait and Denies lack of coordination Physical exam (Primary Care) Vital Signs: Last Vital Signs BP 124/58 L 05/27/24 10:04 BMI result Body Mass Index 24.9 Tobacco/Smoking Status: Tobacco use Status Tobacco use date assessed 01/20/24 05/27/24 10:07 Patient Tobacco Use Status Never used Tobacco 05/27/24 10:07 e-Cigarette/Vaping Use Never Used 05/27/24 10:07 Thrive Assessment: Date of Thrive Assessment Date Thrive assessed 01/20/24 05/27/24 10:07 Resp Effort & Inspection: normal respiratory effort Auscultation: clear to auscultation bilaterally Cardio Jugular venous distension: no JVD Rate: regular rate Rhythm: regular rhythm Heart sounds: S1 normal heart sound present and S2 normal heart sound present Extrem General: Yes full ROM Results AMB Hemoglobin A1c AMB Hemoglobin A1c 6.4 % Last Edit by JOSE Yip on 05/27/24 10:1 5 Results Reviewed Results Reviewed: Laboratory Last Values Hgb A1c (Clinic) 6.4 % (4.0-6.0) H 05/27/24 09:59 Assessment and Plan Assessment & Plan (1) Paroxysmal A-fib: Code(s): I48.0 - Paroxysmal atrial fibrillation Plan: Continue metoprolol. Continue Eliquis. Follow-up with Cardiology. The goal is heart rate control. (2) RTA (renal tubular acidosis): Comment: type 4 due to longstanding diabetes Code(s): N25.89 - Other disorders resulting from impaired renal tubular function Plan: Repeat potassium. EKG ordered. Follow-up with nephrology. Keep blood pressure within goal. (3) CKD (chronic kidney disease) stage 3, GFR 30-59 ml/min: Code(s): N18.30 - Chronic kidney disease, stage 3 unspecified Qualifiers: Chronic kidney disease stage 3 subtype: stage 3a (GFR 45-59) Qualified Code(s): N18.31 - Chronic kidney disease, stage 3a Plan: Avoid NSAIDs. Keep blood pressure within goal. Follow-up with nephrology. (4) Diabetes mellitus: Code(s): E11.9 - Type 2 diabetes mellitus without complications Qualifiers: Diabetes mellitus type: type 2 Diabetes mellitus medical terminologist insulin use: without long-term use Diabetes mellitus complication status: without complication Qualified Code(s): E11.9 - Type 2 diabetes mellitus without complications Plan: Continue metformin. A1c goal is equal or less than 7%. (5) Essential hypertension: Code(s): I10 - Essential (primary) hypertension Plan: Continue hydralazine. Blood pressure goal is equal or less than 130/80. (6) Hyperlipidemia LDL goal <70: Code(s): E78.5 - Hyperlipidemia, unspecified Plan: Continue statins. LDL goal is less than 70. Orders: Orders AMB Hemoglobin A1c Today E11.9 - Type 2 diabetes mellitus without complications Potassium Today E87.5 - Hyperkalemia ECG 12 lead EKG Today E87.5 - Hyperkalemia Coding Level of Care Code Est Pt Level 4 (63383) Complex EM visit Add On G2211 Diagnoses Paroxysmal A-fib I48.0 RTA (renal tubular acidosis) N25.89 Stage 3a chronic kidney disease N18.31 Chronic kidney disease stage 3 subtype: stage 3a (GFR 45-59) Type 2 diabetes mellitus without complication, without long-term current use of insulin E11.9 Diabetes mellitus type: type 2 Diabetes mellitus medical terminologist insulin use: without long-term use Diabetes mellitus complication status: without complication Essential hypertension I10 Hyperlipidemia LDL goal <70 E78.5 Time Spent (min) 25
== END 2024-05-27 10:31 | disposition home or self-care (01) ==
PROVIDERS: PCP Internal Medicine; Visit Provider Internal Medicine
DX: E11.22 Type 2 diabetes mellitus with diabetic chronic kidney disease (principal); N18.31 Chronic kidney disease, stage 3a; I48.0 Paroxysmal atrial fibrillation; N25.89 Other disorders resulting from impaired renal tubular function; I10 Essential (primary) hypertension; E78.5 Hyperlipidemia, unspecified
CPT/HCPCS: 83036; 99214; G2211

== ENCOUNTER → 2024-06-10 09:41 | Outpatient (REF) | payer MEDICARE, SELFPAY ==
--- NOTE | 2024-06-10 09:47 | ECG_ITS ---
Test Reason : HYPERKALEMIA Blood Pressure : / mmHG Vent. Rate : 059 BPM Atrial Rate : 059 BPM P-R Int : 208 ms QRS Dur : 130 ms QT Int : 442 ms P-R-T Axes : 034 -18 011 degrees QTc Int : 437 ms Sinus bradycardia Right bundle branch block Nonspecific ST abnormality Abnormal ECG When compared with ECG of 30-SEP-2023 09:13, Nonspecific ST abnormality is now Present Referred By: Cynthia Jackson Electronically Signed By:BERTA ASIF
[2024-06-10 11:10] LABS: Potassium 5.1 mmol/L (3.3-5.1)
== END ==
LOC: HO.CARD 09:41
PROVIDERS: PCP Internal Medicine; Visit Provider Internal Medicine
DX: E87.5 Hyperkalemia (principal)
CPT/HCPCS: 36415; 84132; 93005

== ENCOUNTER 2024-11-03 10:51 | Outpatient (AMB) | payer MEDICARE, SELFPAY ==
--- NOTE | 2024-11-03 10:58 | MHC.PC.OV ---
Vital Signs 11/03/24 11:03 Height 5 ft 7 in Weight 156 lb BMI 24.4 BP 136/70 Blood Pressure Location Lt brachial Position Sitting Intake Visit Reasons: 4mth f/u- see comm Intake Note: Patient here for a 4 month follow up Braiding Machine Tender Required: No Accompanied by: Self / Same As Patient Allergies shellfish derived Allergy (Severe, Verified 11/03/24 11:15) DIFFICULTY BREATHING,HIVES amlodipine Allergy (Unknown, Verified 11/03/24 11:15) leg edema lisinopril Allergy (Unknown, Verified 11/03/24 11:15) hyperkalemia Penicillins [PENICILLINS] Allergy (Unknown, Verified 11/03/24 11:15) HIVES Medication List - Last Reconciled 11/03/24 by Cynthia Jackson MD apixaban (Eliquis) 5 mg PO BID 90 days atorvastatin 20 mg PO DAILY cholecalciferol (vitamin D3) 25 mcg PO DAILY 90 days cyanocobalamin (vitamin B-12) (Vitamin B-12) 1,000 mcg PO DAILY hydralazine 50 mg PO TID 30 days hydroxyzine HCl 25 mg PO BEDTIME PRN 20 days metformin 1,000 mg PO BID metoprolol succinate ER 25 mg PO BID triamcinolone acetonide 0.1% 1 appl topical BID 90 days Tobacco use date assessed: 11/03/24 Fall risk assessment: 1 Fall in past year Last assessed Fall Risk: 11/03/24 Dental Screening Dental Screen Date: 11/03/24 Did you have a dental visit in the last 12 months?: No Did you have a dental problem in the last 6 months where you did not have access to dental care?: No Was dental information given to patient?: Patient has dentist HPI HPI Comments History of Present Illness Details The patient is a 69-year-old male presenting with a follow-up for his chronic conditions and right humerus fracture. The fracture occurred following a fall from a set of stairs on the second floor at home approximately three months ago. The fracture was non-displaced, diagnosed at [facility], where surgical intervention was deemed unnecessary. The patient reports compliance with orthopedist advice and has attended regular follow-ups. For Type 2 Diabetes Mellitus, his recent hemoglobin A1c level was mentioned to be notably within control parameters; however, the exact value was missed in the discussion. Blood pressure readings have reportedly remained stable under current antihypertensive therapy, although the patient noted a shortage of his medication. Atrial Fibrillation is managed with Eliquis, and the patient denies any bleeding episodes related to this condition. The patient recounts an episode of low hemoglobin, for which repeat testing has been planned in four months. He also has chronic kidney disease stage 3 follow by Nephrology. Regarding eczema, the patient utilizes an ointment intermittently for symptom control. Allergies to shellfish, lisinopril, and penicillin were noted. The patient does not smoke and consumes alcohol occasionally. The current medication for blood pressure is nearing depletion, and the patient has contacted the pharmacy, with a prescription refill pending. [facility] Medical History History of facial injury Hypovitaminosis D Normocytic anemia Screening for prostate cancer Hyperkalemia Pure hypercholesterolemia Essential hypertension Diabetes mellitus Surgical History History of mandibular surgery History of surgical procedure on mouth History of colonoscopy History of atrial septal defect repair History of hydrocele Family History Father Liver disease Alcohol abuse Substance use disorder Mother Diabetes Hypertension History of coronary artery bypass graft Social History Household Members: Significant Other Household Members Other:: [facility] Housing: House Alcohol intake: current Alcohol intake frequency: holidays/special occasions only Alcohol type: beer Patient Tobacco Use Status: Never used Tobacco e-Cigarette/Vaping Use: Never Used Second Hand Smoke Exposure: No service: No Current occupational status: employed 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 1. Little interest or pleasure in doing things: not at all 2. Feeling down, depressed, or hopeless: not at all 3. Trouble falling or staying asleep, or sleeping too much: not at all 4. Feeling tired or having little energy: not at all 5. Poor appetite or overeating: not at all 6. Feeling bad about yourself - or that you are a failure or have let yourself or your family down: not at all 7. Trouble concentrating on things, such as reading the newspaper or watching television: not at all 8. Moving or speaking so slowly that other people could have noticed. Or the opposite - being so fidgety or restless that you have been moving around a lot more than usual: not at all 9. Thoughts that you would be better off or of hurting yourself in some way: not at all Total score: 0 Depression Screening Interpretation: Negative Depression Screening Done: Yes 89770 - PHQ-9 Billing: Yes Source: Developed by Drs. Patrice Cadet, Concepcion Dutton, Jere Qiu and colleagues, with an educational manfred from [employer]. Thrive Questionnaire Date Thrive assessed: 11/03/24 I am a: Patient What is your living situation today?: I have a steady place to live Within the past 12 months, did the food you bought not last and you didn't have the money to get more?: Never true Within the past 12 months, did you worry whether your food would run out before you got money to buy more?: Never true Do you have trouble paying for medicines?: No Do you have trouble getting transportation to medical appointments?: No Do you have trouble paying your heating and electricity bill?: No Do you have trouble taking care of your child, family member or friend?: No Do you have trouble with day-to-day activities such as bathing, preparing meals, shopping, managing finances, etc.?: No Are you currently unemployed and looking for a job?: No Are you interested in more education?: No Please select the resources that you would like help with: None Currently or been in a relationship where the following occur: No concerns reported THRIVE Score: 0 AUDIT C Alcohol Use Questionnaire (AUDIT-C) 1. How often do you have a drink containing alcohol?: Monthly or less 2. How many drinks containing alcohol do you have on a typical day when you are drinking?: 1 or 2 3. How often do you have six or more drinks on one occasion?: Never Total Score: 1 Score Reviewed/Action Taken: No MK-7 AMB Questionnaire MK-7 Date MK - 7 assessed: 11/03/24 Feeling nervous, anxious, or on edge: 0 = Not at all Not being able to stop or control worryin = Not at all Worrying too much about different things: 0 = Not at all Trouble relaxin = Not at all Being so restless that it is hard to sit still: 0 = Not at all Becoming easily annoyed or irritable: 0 = Not at all Feeling afraid as if something awful might happen: 0 = Not at all Total MK-7 score (0-4 normal; 5-9 mild; 10-14 moderate; 15-21 severe): 0 Source: Developed by Drs. Patrice Cadet, Concepcion Dutton, Jere Qiu and colleagues, with an educational manfred from [employer]. MK-7 Assessment Billing MK-7 Assessment Tool: MK-7 Assessment 70624 Review of Systems Const All systems reviewed & are unremarkable except as noted in HPI and below Card Denies chest pain at rest, Denies chest pain with activity, Denies edema, Denies irregular heart rhythm, Denies claudication, Denies dyspnea, Denies dyspnea on exertion, Denies orthopnea, Denies paroxysmal nocturnal dyspnea and Denies slow heart rate Resp Denies cough, Denies dyspnea and Denies dyspnea on exertion Physical exam (Primary Care) Vital Signs: Last Vital Signs BP 136/70 11/03/24 11:03 BMI result Body Mass Index 24.4 Tobacco/Smoking Status: Tobacco use Status Tobacco use date assessed 11/03/24 11/03/24 11:06 Patient Tobacco Use Status Never used Tobacco 11/03/24 11:01 e-Cigarette/Vaping Use Never Used 11/03/24 11:01 PHQ-9: PHQ-9 Score PHQ-9: Total score 0 11/03/24 11:16 Depression Screening Interpretation: Negative Thrive Assessment: Date of Thrive Assessment Date Thrive assessed 11/03/24 11/03/24 11:01 Currently or been in a relationship where the following occur: No concerns reported Resp Effort & Inspection: normal respiratory effort Auscultation: clear to auscultation bilaterally Cardio Jugular venous distension: no JVD Rate: regular rate Rhythm: regular rhythm Heart sounds: S1 normal heart sound present and S2 normal heart sound present Extrem General: Yes full ROM Office Procedures Flu Questionnaire Does the patient have a severe egg allergy?: No Results AMB Hemoglobin A1c AMB Hemoglobin A1c 6.5 % Last Edit by JOSE Yip on 11/03/24 11:16 Immunizations Fluarix Triv [id number] (PF) 45 mcg (15 mcg x 3)/0.5 mL IM syringe Performing Provider: Cynthia Jackson MD [facility] Documented (not given) by: JOSE Yip on 11/03/24 11:07 Reason Not Given: Patient Refused Results Reviewed Results Reviewed: Laboratory Last Values Hgb A1c (Clinic) 6.5 % (4.0-6.0) H 11/03/24 10:57 Coding Level of Care Code Est Pt Level 4 (02633) Complex EM visit Add On G2211 Diagnoses Stage 3a chronic kidney disease N18.31 Chronic kidney disease stage 3 subtype: stage 3a (GFR 45-59) Hyperlipidemia LDL goal <70 E78.5 Paroxysmal A-fib I48.0 Type 2 diabetes mellitus without complication, without long-term current use of insulin E11.9 Diabetes mellitus type: type 2 Diabetes mellitus buttermaker continuous churn insulin use: without buttermaker continuous churn use Diabetes mellitus complication status: without complication Essential hypertension I10 Additional Codes MK-7 Assessment Billing - MK-7 Assessment Tool: MK-7 Assessment 71400 ([id number]) PHQ-9 - 85100 - PHQ-9 Billing: Yes ([id number]) Time Spent (min) 23 Assessment & Plan Assessment & Plan (1) CKD (chronic kidney disease) stage 3, GFR 30-59 ml/min: Code(s): N18.30 - Chronic kidney disease, stage 3 unspecified Category: Medical Qualifiers: Chronic kidney disease stage 3 subtype: stage 3a (GFR 45-59) Qualified Code(s): N18.31 - Chronic kidney disease, stage 3a (2) Hyperlipidemia LDL goal <70: Code(s): E78.5 - Hyperlipidemia, unspecified Category: Medical (3) Paroxysmal A-fib: Code(s): I48.0 - Paroxysmal atrial fibrillation Category: Medical (4) Diabetes mellitus: Code(s): E11.9 - Type 2 diabetes mellitus without complications Category: Medical Qualifiers: Diabetes mellitus type: type 2 Diabetes mellitus retirement insulin use: without buttermaker continuous churn use Diabetes mellitus complication status: without complication Qualified Code(s): E11.9 - Type 2 diabetes mellitus without complications (5) Essential hypertension: Code(s): I10 - Essential (primary) hypertension Category: Medical Plan - Review current management plan for the right humerus fracture. Continue therapy and schedule follow-up as needed. - Maintain control of Type 2 Diabetes Mellitus and repeat HbA1c in four months. - Ensure stable blood pressure control; follow up on antihypertensive medication refill. - Continue Eliquis for Atrial Fibrillation without noted bleeding risk. - Advise continued topical treatment as required for eczema. Patient was informed and verbally consented to the use of an ambient scribe for clinic note documentation during this visit. During today's visit, we reviewed the management and progress of [Name]?s chronic conditions, which include hypertension, atrial fibrillation, and Type 2 Diabetes Mellitus. For his recent right humerus fracture, the non-displaced nature does not require surgical intervention, and ongoing orthopedic consults are recommended. We also discussed the importance of medication adherence, especially concerning antihypertensive therapy. I reassured the patient about the adequacy of his current diabetes control, although noted discrepancies in his medication supply warrant attention. We addressed potential allergy reactions and re-emphasized the need for vigilance with medications. The patient was informed about scheduling further blood work in four months to assess long-term chronic condition control. Orders: Orders Influenza [id number] Immunization Today Z23 - Encounter for immunization Microalbumin, Random (w Creat) 4 Months R80.9 - Proteinuria, unspecified Lipid Panel 4 Months E78.5 - Hyperlipidemia, unspecified Complete Blood Count Auto Diff 4 Months D64.9 - Anemia, unspecified IRON PROFILE 4 Months D64.9 - Anemia, unspecified AMB Hemoglobin A1c Today E11.9 - Type 2 diabetes mellitus without complications Vitamin D 25-OH Total 4 Months E55.9 - Vitamin D deficiency, unspecified Comprehensive [place]. Panel Fast 4 Months N18.31 - Chronic kidney disease, stage 3a Medications: Refilled hydralazine 50 mg PO TID 90 tabs 1RF 30 days E11.9 - Type 2 diabetes mellitus without complications triamcinolone acetonide 0.1% 1 appl topical BID 80 grams 1RF 90 days Patient Instructions: - Follow-up with orthopedist as scheduled for fracture management. - Ensure antihypertensive medications are refilled promptly. - Continue prescribed ointment for eczema as needed. - Obtain routine lab works as planned in four months. - Contact healthcare provider if any issues arise with current medications or new symptoms develop.
[2024-11-03 11:03] VITALS: BP 136/70; BMI 24.4
== END 2024-11-03 11:25 | disposition home or self-care (01) ==
PROVIDERS: PCP Internal Medicine; Visit Provider Internal Medicine
DX: N18.31 Chronic kidney disease, stage 3a (principal); E78.5 Hyperlipidemia, unspecified; I48.0 Paroxysmal atrial fibrillation; E11.9 Type 2 diabetes mellitus without complications; I10 Essential (primary) hypertension; Z23 Encounter for immunization

== ENCOUNTER → 2024-11-03 10:51 | Outpatient (BNVA) | payer MEDICARE, SELFPAY | PROVIDERS: PCP Internal Medicine; Visit Provider Internal Medicine | DX: E11.9 Type 2 diabetes mellitus without complications (principal); E78.5 Hyperlipidemia, unspecified; L30.9 Dermatitis, unspecified; N18.31 Chronic kidney disease, stage 3a; I48.0 Paroxysmal atrial fibrillation; Z91.81 History of falling; Z28.21 Immunization not carried out because of patient refusal | CPT/HCPCS: 83036; 90471; 96127; 99212 ==

== ENCOUNTER 2024-11-17 09:31 | Outpatient (REF) | payer MEDICARE, SELFPAY ==
--- OUTSIDE RECORDS SUMMARY | 2024-11-17 11:05 | XMS_ITS | Clinical Summary ---
Author Organization [facility], Address [address] [place] [address] [place] [address] Phone Care Team Providers Care Barge Master Name Role Phone Cynthia Thomas MD Primary Care Provider [phone] Allergies Active Allergy Reactions Criticality Noted Date Comments Penicillins Other (see comments) 02/01/2021 Shellfish Allergy Other (see comments) 02/02/20 Medications metFORMIN (GLUCOPHAGE) 1000 MG tablet Take 1,000 mg by mouth 12/18/2020 Active hydrALAZINE (APRESOLINE) 25 MG tablet Take 25 mg by mouth 12/10/2020 Active atorvastatin (LIPITOR) 20 MG tablet Take 20 mg by mouth 1 (one) time each day 12/18/2020 Active apixaban (ELIQUIS) 5 MG tablet Take 5 mg by mouth in the morning and 5 mg in the evening. Active metoprolol tartrate 25 MG tablet Take 25 mg by mouth in the morning and 25 mg in the evening. Active Active Problems Problem Noted Date Diagnosed Date Hyperkalemic renal tubular acidosis 06/27/2022 Type 2 diabetes mellitus 02/01/2021 Hypercholesterolemia 02/01/2021 Hyperkalemia 02/01/2021 Hypertensive disorder 02/01/2021 Family History Medical History Relation Comments Diabetes Mother Heart disease Mother CAD Hypertension Mother Hypertension Sibling 1 Diabetes Sibling 2 Relation Status Comments Father Unknown Mother Unknown Sibling 1 Sibling 2 Social History Tobacco Use Types Packs/Day Years Used Date Smoking Tobacco: Never Alcohol Use Standard Drinks/Week Comments No 0 (1 standard drink = 0.6 oz pur e alcohol) Sex and Gender Information Value Date Recorded Sex Assigned at Not on file Legal Sex Male 5:18 PM EST Gender Identity Not on file Sexual Orientation Not on file Last Filed Vital Signs Vital Sign Reading Time Taken Comments Blood Pressure 136/82 10/17/2023 2:12 PM EST Pulse 72 10/17/2023 2:12 PM EST Temperature - - Respiratory Rate - - Oxygen Saturation - - Inhaled Oxygen Concentration - - Weight - - Height - - Body Mass Index - - Plan of Treatment Health Maintenance Due Date Last Done Comments Pneumococcal Vaccine: 65+ Ye ars (1 of 2 - PCV) 1959 Colorectal Cancer Screening: Annual FOBT 2002 Colorectal Cancer Screening: Colonoscopy 2002 Colorectal Cancer Screening: Sigmoidoscopy 2002 Diabetes: Ophthalmology Exam 11/20/2020 Diabetes: Pedal Pulse Checked 11/20/2020 Diabetes: Sensory Foot Exam 11/20/2020 Diabetes: Visual Foot Exam 11/20/2020 Diabetes: Hemoglobin A1C 11/02/2021 08/02/2021 Influenza Vaccine (#1) 2024 Hepatitis B Vaccine Aged Out No longe r eligible based on patient's age to complete this topic Procedures Procedure Name Priority Date/Time Associated Diagnosis Comments HEMOGLOBIN A1C Routine 08/02/2021 10:57 AM EDT Type 2 diabetes mellitus with diabetic nephropathy (HCC) Hyperkalemia Hypertensive disorder from Last 3 Months or Most Recently Relevant to Health Maintenance Results * (ABNORMAL) Hemoglobin A1c (08/02/2021 10:57 AM EDT) Hemoglobin A1C 6.1(H) (4.0-5.6) % [facility] Comment: MONITORING: In known diabetic patients, hemoglobin A1c targets should be discussed with health care provider. DIAGNOSTIC USE: ??The [place] Diabetes Association (ADA) and the World Health Organization (WHO) recommend the use of HbA1c to diagnose diabetes using a threshold of 6.5%. Patients who have an HbA1c between 5.7% and 6.4% are considered at increased risk for developing diabetes in the future. CAUTION: Falsely low HbA1c results may be observed in patients with hemolytic anemia, homozygous forms of abnormal hemoglobin (e.g. SS, CC, SC), , recent blood loss or hemoglobin F greater than 7%. Fructosamine may be used as an alternate test in these cases. REFERENCE: ADA: Standards of Medical Care in Diabetes 2020, The Journal of Clinical and Applied Research and Education Volume 43, Supplement 1 Testing performed or reported by [facility], a Service of [facility], [address] [place] [id number] Britni Gary MD, Vp Outcomes [facility]# [id number] Blood (Blood, Venous) 08/02/2021 10:57 AM EDT 08/02/2021 11:00 AM EDT us Enmanuel Casanova DO LAB BLOOD ORDERABLES Final Resu lt [facility] from Last 3 Months or Most Recently Relevant to Health Maintenance Insurance MEDICAID [place] [facility] [employer] Care Teams Barge Master Relationship Specialty Start Date End Date Cynthia Thomas MD [address] [place] PCP - General 10/30/20
[2024-11-17 11:16] LABS: MANUAL DIFF FLAG NO
[2024-11-17 11:52] LABS: Basophils Absolute Auto 0.1 X10*3/uL (0.0-0.2); Basophils Percent Auto 1.1 % (0-2); Eosinophils Absolute Auto 0.3 X10*3/uL (0.0-0.4); Eosinophils Percent Auto 4.5 % (0-4); Hematocrit 23.9 % (42.0-52.0); Imm Gran Abs Auto 0.02 X10*3/uL (0.00-0.03); Imm Gran Pct Auto 0.3 % (0.0-0.4); Lymphocytes Absolute Auto 1.7 X10*3/uL (1.2-4.9); Mean Corpuscular Hemoglobin 19.2 pg (27.0-33.0); Mean Corpuscular Volume 68.5 fL (80.0-98.0); Mean Platelet Volume 9.1 fL (9.4-12.4); Monocytes Absolute Auto 0.6 X10*3/uL (0.1-1.2); Monocytes Percent Auto 9.9 % (2-11); Neutrophils Absolute Auto 3.6 x10*3/uL (2.0-8.3); Neutrophils Percent Auto 57.2 % (45-73); Platelet Count 436 X10*3/uL (160-400); Red Blood Count 3.49 X10*6/uL (4.60-5.80); Red Cell Distribution Width 17.8 % (11.0-16.0); White Blood Count 6.3 X10*3/uL (4.8-10.8)
[2024-11-17 13:02] LABS: Alanine Aminotransferase 18 U/L (0-40); Albumin Level 4.3 g/dL (3.5-5.0); Alkaline Phosphatase 96 U/L (39-117); Anion Gap 11 (12-20); Aspartate Amino Transferase 30 U/L (5-37); Bilirubin Total 0.3 mg/dL (0.0-1.0); Blood Urea Nitrogen 12 mg/dL (9-16); Calcium 9.5 mg/dL (8.4-10.2); Carbon Dioxide 23 mmol/L (22-29); Chloride 108 mmol/L (96-108); Estimated Glomerular Filt Rate 56; Glucose Random 102 mg/dL (60-115); Potassium 4.9 mmol/L (3.3-5.1); Sodium 137 mmol/L (135-145); Total Protein 7.7 g/dL (6.5-8.0)
[2024-11-17 13:05] LABS: Free T4 (Free Thyroxine) 1.03 ng/dL (0.71-1.85); Thyroid Stimulating Hormone 2.42 uIU/mL (0.32-4.0)
[2024-11-17 13:35] LABS: Hemoglobin 6.7 g/dl (14.0-18.0)
[2024-11-18 19:38] LABS: Immunoglobulin E 5 kU/L (<OR=114)
== END 2024-11-17 09:32 | disposition home or self-care (01) ==
LOC: HO.LAB 09:31
PROVIDERS: PCP Internal Medicine; Visit Provider Physician Assistant
DX: L23.9 Allergic contact dermatitis, unspecified cause (principal); L20.89 Other atopic dermatitis
CPT/HCPCS: 36415; 80053; 82785; 84439; 84443; 85025

== ENCOUNTER 2024-11-18 14:13 | Emergency (ER) | payer MEDICARE, SELFPAY ==
[2024-11-18] VITALS (9 sets, daily range): BP systolic 141–155; BP diastolic 49–94; PULSE 52–60; RESP 16–20; TEMP 36.7–36.9; O2SAT 99–100; BMI 25.5
--- NOTE | 2024-11-18 15:00 | ED.GENADULT ---
HPI - General Adult General Chief complaint: Recheck/Abnormal Lab/Rx Stated complaint: Blood transfusion Time Seen by Provider: 11/18/24 16:19 Source: patient and family Mode of arrival: ambulatory Limitations: no limitations History of Present Illness ED Provider: Dr. Gianna Patel HPI narrative: Patient comes to the emergency room complaining of low H&H. Patient states that he had his routine 4 month follow-up with his primary care physician and he was informed that his hemoglobin is low and he needed to come to emergency room to get a blood transfusion. Patient states that he has no symptoms. Denies any chest pain or shortness of breath, denies any fatigue. Patient is on Eliquis for atrial fibrillation. However, patient states that he has never seen any black stool or blood in the stool. Patient states that he feels completely normal. Related Data Previous Rx's ?Medication ?Instructions ?Recorded metoprolol succinate 25 mg 25 mg PO BID #180 tabs 12/22/23 tablet,extended release 24 hr hydroxyzine HCl 25 mg tablet 25 mg PO BEDTIME PRN itching 20 12/27/23 days #20 tabs cyanocobalamin (vitamin B-12) 1,000 mcg PO DAILY #90 tabs 03/08/24 1,000 mcg tablet (Vitamin B-12) metformin 1,000 mg tablet 1,000 mg PO BID #180 tabs 07/02/24 cholecalciferol (vitamin D3) 25 25 mcg PO DAILY 90 days #90 caps 07/21/24 mcg (1,000 unit) capsule atorvastatin 20 mg tablet 20 mg PO DAILY #90 tabs 09/05/24 apixaban 5 mg tablet (Eliquis) 5 mg PO BID 90 days #180 tabs 09/28/24 hydralazine 50 mg tablet 50 mg PO TID 30 days #90 tabs 11/03/24 triamcinolone acetonide 0.1 % 1 appl topical BID 90 days #80 11/03/24 topical ointment grams Allergies Allergy/AdvReac Type Severity Reaction Status Date / Time shellfish derived Allergy Severe DIFFICULTY Verified 11/18/24 15:00 BREATHING,HIVES amlodipine Allergy Unknown leg edema Verified 11/18/24 15:00 lisinopril Allergy Unknown hyperkalemi Verified 11/18/24 15:00 a Penicillins [PENICILLINS] Allergy Unknown HIVES Verified 11/18/24 15:00 Review of Systems Review of Systems: Constitutional : No Weight loss, No Fever, No Chills, No Night Sweats, No Fatigue, No Malaise ENT/Mouth : No Hearing loss, No Ear Pain, No Nasal Congestion, No Sinus Pain, No Hoarseness, No sore throat, No Rhinorrhea, No Swallowing Difficulty Eyes: No Eye Pain, No Swelling, No Redness, No Foreign Body, No Discharge, No Vision Changes Cardiovascular : No Chest Pain, No SOB, No Dyspnea on Exertion, No Orthopnea, No Edema, No Palpitations Respiratory : No Cough, No Sputum, No Wheezing, No Smoke Exposure, No Dyspnea Gastrointestinal : No Nausea, No Vomiting, No Diarrhea, No Constipation, No abdominal Pain, No Hematochezia, No Melena Genitourinary : no irregular bleeding, No Dysuria, No Urinary Frequency, No Hematuria, No Urinary Incontinence, No Urgency, No Flank Pain, No Urinary Flow Changes, No Hesitancy Musculoskeletal : No joint pain, No Myalgias, No Joint Swelling Skin : No Skin Lesions, No rash Neuro : No Weakness, No Numbness, No Paresthesias, No Loss of Consciousness, No Dizziness, No Headache Psych : No Anxiety/Panic, No Depression, No SI/HI/AH/VH, No Social Issues, Heme/Lymph: Complaining of low H&H, No Bruising, No Bleeding,No Lymphadenopathy Endocrine : No Polyuria, No Polydipsia, No Temperature Intolerance PMFSH Past Medical History Medical History History of facial injury Hypovitaminosis D Normocytic anemia Screening for prostate cancer Hyperkalemia Pure hypercholesterolemia Essential hypertension Diabetes mellitus Surgical History History of mandibular surgery History of surgical procedure on mouth History of colonoscopy History of atrial septal defect repair History of hydrocele Family History Family History Father Liver disease Alcohol abuse Substance use disorder Mother Diabetes Hypertension History of coronary artery bypass graft Social History Social History Household Members: Significant Other Household Members Other:: iris Housing: House Alcohol intake: never Patient Tobacco Use Status: Never used Tobacco Smoked in Last 30 Days: No e-Cigarette/Vaping Use: Never Used Second Hand Smoke Exposure: No Use of substances other than those prescribed or required for medical reasons: No Advance Directives: Yes Advance Directives on File: Yes Advance Directives Date on File: 05/23/23 service: No Current occupational status: employed 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 Current occupational exposures/hazards: No Cognitive needs: No Hearing needs: No Vision needs: Yes Physical Exam ED Vital Signs: Vital Signs - 24 hr 11/18/24 14:57 11/18/24 15:33 11/18/24 17:41 Temperature 98.4 F 98.1 F 98.2 F Pulse Rate 59 57 52 Respiratory Rate 16 16 16 Blood Pressure 147/49 H 155/51 H 144/58 H Pulse Oximetry 100 99 100 Oxygen Delivery Method Room Air Room Air Room Air 11/18/24 20:10 11/18/24 20:31 11/18/24 21:30 Temperature 98.2 F Pulse Rate 58 58 58 Respiratory Rate 20 18 18 Blood Pressure 145/57 H 150/57 H 143/57 H Pulse Oximetry Oxygen Delivery Method 11/18/24 22:15 11/18/24 22:30 11/18/24 23:30 Temperature 98.1 F Pulse Rate 59 56 60 Respiratory Rate 16 18 18 Blood Pressure 153/61 H 141/94 H 142/59 H Pulse Oximetry 99 Oxygen Delivery Method Room Air 11/19/24 00:44 11/19/24 01:02 11/19/24 02:00 Temperature 98.0 F Pulse Rate 56 56 52 Respiratory Rate 18 18 18 Blood Pressure 143/51 H 141/48 H 144/55 H Pulse Oximetry Oxygen Delivery Method 11/19/24 03:00 11/19/24 04:15 11/19/24 04:26 Temperature 97.9 F Pulse Rate 56 60 Respiratory Rate 18 18 Blood Pressure 160/65 H 141/66 H Pulse Oximetry 98 Oxygen Delivery Method Room Air 11/19/24 04:38 11/19/24 04:46 11/19/24 05:01 Temperature 97.9 F 97.9 F Pulse Rate 60 60 50 Respiratory Rate 20 20 20 Blood Pressure 147/75 H 147/75 H 162/69 H Pulse Oximetry Oxygen Delivery Method 11/19/24 05:04 11/19/24 06:02 11/19/24 07:01 Temperature Pulse Rate 62 58 58 Respiratory Rate 20 20 18 Blood Pressure 148/59 H 143/56 H 161/70 H Pulse Oximetry Oxygen Delivery Method BMI result Body Mass Index 25.5 Const Other: Appearance: Alert. Oriented X3. No acute distress. Eyes: Pupils equal, round and reactive to light. ENT: Pharynx normal. Neck: Normal inspection. Neck supple. No lymph nodes noted. No crepitus CVS: Normal heart rate and rhythm. Pulses normal. Normal S1 and S2 Respiratory: No respiratory distress. Breath sounds normal. No Wheezing. No rales Abdomen: Soft and nontender. No rigidity. No distention. Skin: Skin warm and dry. Normal skin color. Normal skin turgor. Extremities: No lower extremity edema. No Lacerations. No Rash Neuro: Oriented X 3. No motor deficit. No sensory deficit. Moving all extremities. No slurred speech. CN 2 through 12 grossly intact Psych: calm, cooperative, normal affect Course Course Course Narrative: RME, this is a rapid medical exam performed by Cj Rizzo please refer to primary provider for complete H&P- 69-year-old male with past medical history significant for hyperlipidemia, chronic kidney disease, atrial fibrillation on Eliquis, right bundle branch block, diabetes presents for evaluation of anemia. Patient had routine labs yesterday in his primary doctor and was told to come to the ER for a transfusion as his hemoglobin was 6.7. He denies any black or bloody stool or any kind of bleeding. Plan for repeat labs. Reevaluation(s) Reevaluation #1: VS stable this am and hemoglobin up appropriately. Medical Decision Making Medical Decision Making [facility] Narrative: My interpretation of labs: Patient's hemoglobin 6.6, hematocrit 23.4. Chemistry does not show any acute abnormality. Iron studies show significant iron deficiency anemia. Guaiac test his heme negative Patient's hemoglobin baseline is close to 10. Patient will be receiving 3 units of blood. Patient's vitals stable. I discussed the patient with Dr. Todd. No need for admission at this time: Recommendations close follow-up with PCP and outpatient Gastroenterology. Patient may benefit also from a heme/oncology consult for possible IV transfusions if p.o. iron is not effective Patient feels well, tolerating the blood transfusions well. Patient agrees with plan, once he gets his blood transfused, he will follow-up with his PCP Patient tolerated the blood transfusion well, asymptomatic. Sign-out given to my colleague Dr. Romero 620 am Patient has received 2 units of PRBC feeling much better now will discharge patient home after 3rd blood transfusion per Dr. Casas evaluation will give 20 mg of Lasix Differential Diagnosis Differential Diagnoses: The differential diagnosis associated with the presentation includes (Upper GI bleed, lower GI bleed, chronic anemia, iron deficiency anemia) Admission/Observation Consideration of admission/observation: Escalation of care including admission/observation considered Lab Data MDM Lab Attestation statement: I reviewed the patient's lab results. 11/19/24 07:52 11/18/24 15:18 Labs: Lab Results 11/18/24 11/18/24 11/19/24 Range/Units 15:18 16:55 07:52 WBC 8.0 8.5 (4.8-10.8) X10*3/uL RBC 3.51 L 4.36 L D (4.60-5.80) X10*6/uL Hgb 6.6 L* 9.9 L D (14.0-18.0) g/dl Hct 23.4 L 31.6 L D (42.0-52.0) % MCV 66.7 L 72.5 L D (80.0-98.0) fL MCH 18.8 L 22.7 L (27.0-33.0) pg MCHC 28.2 L 31.3 (31.0-36.0) g/dl RDW 18.0 H 23.1 H (11.0-16.0) % Plt Count 419 H 349 (160-400) X10*3/uL MPV 8.9 L 8.7 L (9.4-12.4) fL Immature Gran % (Auto) 0.3 (0.0-0.4) % Neut % (Auto) 57.5 (45-73) % Lymph % (Auto) 26.2 (20-40) % [place] % (Auto) 10.6 (2-11) % Eos % (Auto) 4.5 H (0-4) % Baso % (Auto) 0.9 (0-2) % Lymph # (Auto) 2.1 (1.2-4.9) X10*3/uL [place] # (Auto) 0.8 (0.1-1.2) X10*3/uL Eos # (Auto) 0.4 (0.0-0.4) X10*3/uL Baso # (Auto) 0.1 (0.0-0.2) X10*3/uL Abs Immat Gran (auto) 0.02 (0.00-0.03) X10*3/uL Absolute Neuts (auto) 4.6 (2.0-8.3) x10*3/uL Absolute Nucleated RBC 0.000 0.000 (0.0-0.012) X10*3/uL Nucleated RBC % (auto) 0.0 0.0 (0.0-0.2) /100WBC PT 14.0 H (10.9-12.4) SEC INR 1.2 H (0.9-1.1) Sodium 138 (135-145) mmol/L Potassium 5.0 (3.3-5.1) mmol/L Chloride 109 H (96-108) mmol/L Carbon Dioxide 22 (22-29) mmol/L Anion Gap 12 (12-20) BUN 17 H (9-16) mg/dL Creatinine 1.30 (0.5-1.4) mg/dL Estim Creat Clear Calc 47.0 Estimated GFR 54 Random Glucose 77 (60-115) mg/dL Calcium 9.9 (8.4-10.2) mg/dL Iron 13 L (45-160) mcg/dL TIBC 429 H (228-428) mcg/dL % Saturation 3 L (15-50) % Unsat Iron Binding 416 ug/dL Total Bilirubin 0.3 (0.0-1.0) mg/dL AST 29 (5-37) U/L ALT 21 (0-40) U/L Alkaline Phosphatase 103 (39-117) U/L Total Protein 7.5 (6.5-8.0) g/dL Albumin 4.1 (3.5-5.0) g/dL Stool Occult Blood NEGATIVE (NEGATIVE) Blood Type O Positive Antibody Screen NEGATIVE Crossmatch See Detail Independent Interpretation I performed an independent interpretation of an: EKG Interpretation: My interpretation of EKG: Normal sinus rhythm, heart rate 61, no ST segment depression or elevation, no T-wave inversion, QTC 463, right bundle branch block Critical Care Time Critical Care Time Critical Care Time: Yes Total Critical Care Time: 75 Attestation: I have personally provided critical care time. Time includes review of lab data, radiology results, discussion with consultants, and monitoring for potential decompensation. Intervention performed as documented. Discharge Plan Discharge Clinical Impression: Anemia Patient Disposition: Still a Patient Instructions: Anemia (ED) Additional Instructions: Please follow-up with your primary care physician tomorrow. If you have any worsening or new symptoms, please return to the emergency room or call 911 need repeat CBC by Friday. Prescriptions: No Action metoprolol succinate 25 mg tablet extended release 24 hr 25 mg PO BID Qty: 180 3RF hydroxyzine HCl 25 mg tablet 25 mg PO BEDTIME PRN (Reason: itching) 20 Days Qty: 20 0RF metformin 1,000 mg tablet 1,000 mg PO BID Qty: 180 2RF cholecalciferol (vitamin D3) 25 mcg (1,000 unit) capsule 25 mcg PO DAILY 90 Days Qty: 90 3RF atorvastatin 20 mg tablet 20 mg PO DAILY Qty: 90 0RF Eliquis 5 mg tablet 5 mg PO BID 90 Days Qty: 180 3RF cyanocobalamin (vitamin B-12) [Vitamin B-12] 1,000 mcg Tablet 1,000 mcg PO DAILY Qty: 90 3RF hydralazine 50 mg tablet 50 mg PO TID 30 Days Qty: 90 1RF triamcinolone acetonide 0.1 % ointment 1 appl topical BID 90 Days Qty: 80 1RF Print Language: Mauritian
[2024-11-18 15:27] LABS: MANUAL DIFF FLAG NO
[2024-11-18 15:30] LABS: Basophils Absolute Auto 0.1 X10*3/uL (0.0-0.2); Basophils Percent Auto 0.9 % (0-2); Eosinophils Absolute Auto 0.4 X10*3/uL (0.0-0.4); Eosinophils Percent Auto 4.5 % (0-4); Hematocrit 23.4 % (42.0-52.0); Imm Gran Abs Auto 0.02 X10*3/uL (0.00-0.03); Imm Gran Pct Auto 0.3 % (0.0-0.4); Lymphocytes Absolute Auto 2.1 X10*3/uL (1.2-4.9); Lymphocytes Percent Auto 26.2 % (20-40); Mean Corpuscular HGB Conc 28.2 g/dl (31.0-36.0); Mean Corpuscular Hemoglobin 18.8 pg (27.0-33.0); Mean Corpuscular Volume 66.7 fL (80.0-98.0); Mean Platelet Volume 8.9 fL (9.4-12.4); Monocytes Absolute Auto 0.8 X10*3/uL (0.1-1.2); Monocytes Percent Auto 10.6 % (2-11); Neutrophils Absolute Auto 4.6 x10*3/uL (2.0-8.3); Neutrophils Percent Auto 57.5 % (45-73); Platelet Count 419 X10*3/uL (160-400); Red Blood Count 3.51 X10*6/uL (4.60-5.80)
[2024-11-18 15:34] LABS: Hemoglobin 6.6 g/dl (14.0-18.0)
[2024-11-18 15:38] LABS: INTERNATIONAL NORM RATIO 1.2 (0.9-1.1)
--- NOTE | 2024-11-18 15:38 | PC.NURSE ---
Lab called to report HGB 6.6; lab result read back to laborer hide house by this RN; Dr Roman made aware
[2024-11-18 15:59] LABS: Alanine Aminotransferase 21 U/L (0-40); Albumin Level 4.1 g/dL (3.5-5.0); Anion Gap 12 (12-20); Aspartate Amino Transferase 29 U/L (5-37); Bilirubin Total 0.3 mg/dL (0.0-1.0); Blood Urea Nitrogen 17 mg/dL (9-16); Calcium 9.9 mg/dL (8.4-10.2); Carbon Dioxide 22 mmol/L (22-29); Chloride 109 mmol/L (96-108); Estimated Glomerular Filt Rate 54; Glucose Random 77 mg/dL (60-115); Sodium 138 mmol/L (135-145); Total Protein 7.5 g/dL (6.5-8.0)
[2024-11-18 16:23] LABS: Alkaline Phosphatase 103 U/L (39-117)
[2024-11-18 17:10] LABS: OBS Int Ctl Valid YES; OBS1 NEGATIVE (NEGATIVE)
--- OUTSIDE RECORDS SUMMARY | 2024-11-18 19:15 | XMS_ITS | Clinical Summary ---
Author Organization [facility], Address [address] [place] [address] [place] [address] Phone Care Team Providers Care Maple Products Supervisor Name Role Phone Cynthia Thomas MD Primary Care Provider [phone] Allergies Active Allergy Reactions Criticality Noted Date Comments Penicillins Other (see comments) 02/01/2021 Shellfish Allergy Other (see comments) 02/02/20 21 Medications metFORMIN (GLUCOPHAGE) 1000 MG tablet Take [...] AM EDT) Hemoglobin A1C 6.1(H) (4.0-5.6) % [facility] Comment: MONITORING: In known diabetic patients, hemoglobin A1c targets should be discussed with health care provider. DIAGNOSTIC USE: ??The [place] Diabetes Association (ADA) and the World Health [...] Supplement 1 Testing performed or reported by [facility], a Service of [facility], [address] [place] [id number] Britni Gary MD, Pipe Liner [facility]# [id number] Blood (Blood, Venous) 08/02/2021 10:57 AM EDT 08/02/2021 11:00 AM EDT us Enmanuel Casanova DO LAB BLOOD ORDERABLES Final Resu lt [facility] from Last 3 Months or Most Recently Relevant to Health Maintenance Insurance [place] [facility] [employer] Care Teams Maple Products Supervisor Relationship Specialty Start Date End Date Cynthia Thomas MD [address] [place] PCP - General 10/30/20
--- NOTE | 2024-11-18 19:19 | ECG_ITS ---
Test Reason : anemic Blood Pressure : */* mmHG Vent. Rate : 61 BPM Atrial Rate : 61 BPM P-R Int : 184 ms QRS Dur : 122 ms QT Int : 460 ms P-R-T Axes : 1 -19 4 degrees QTcB Int : 463 ms Sinus rhythm with occasional Premature ventricular complexes Right bundle branch block Abnormal ECG When compared with ECG of 10-Jun-2024 09:53, Premature ventricular complexes are now Present Referred By: Gianna Patel Electronically Signed By: JASPAL HUGHES
--- NOTE | 2024-11-18 20:20 | PC.NURSE ---
A/o x 3. no distress. transfusion initiated. breathing easy, no cough/distress. tolerating PO well. family at bedside.
[2024-11-18 20:21] LABS: Iron 13 mcg/dL (45-160); Percent Iron Saturation 3 % (15-50); Total Iron Binding Capacity 429 mcg/dL (228-428); Unsaturated Iron Binding 416 ug/dL
--- NOTE | 2024-11-18 22:26 | PC.NURSE ---
tolerating blood transfusion well/no complaints. placed on hospital bed. resting comfortably.
[2024-11-19] VITALS (15 sets, daily range): BP systolic 141–169; BP diastolic 48–77; PULSE 48–62; RESP 14–20; TEMP 36.6–36.7; O2SAT 96–98
--- NOTE | 2024-11-19 00:21 | PC.NURSE ---
tolerated blood transfusion well. no complaints/n/cp/dyspnea/rash. mental status at baseline, speech clear. to receive unit 2 of 3. cont to monitor.
--- NOTE | 2024-11-19 04:53 | PC.NURSE ---
receiving unit 3 of 3, tolerating well. speech clear, remains A/O x4. uses urinal at bedside.
--- NOTE | 2024-11-19 06:46 | PC.NURSE ---
lungs clear bilaterally, no cough/cp. respirations nonlabored.
[2024-11-19 07:56] LABS: Hematocrit 31.6 % (42.0-52.0); Hemoglobin 9.9 g/dl (14.0-18.0); Mean Corpuscular HGB Conc 31.3 g/dl (31.0-36.0); Mean Corpuscular Hemoglobin 22.7 pg (27.0-33.0); Mean Corpuscular Volume 72.5 fL (80.0-98.0); Mean Platelet Volume 8.7 fL (9.4-12.4); Platelet Count 349 X10*3/uL (160-400); Red Blood Count 4.36 X10*6/uL (4.60-5.80); Red Cell Distribution Width 23.1 % (11.0-16.0); White Blood Count 8.5 X10*3/uL (4.8-10.8)
--- NOTE | 2024-11-19 09:14 | PC.NURSE ---
Juan Luis Barnett, DO aware of d/c HR
== END 2024-11-19 09:14 | disposition home or self-care (01) ==
PROVIDERS: Emergency Medicine; Physician Assistant; Emergency Provider Emergency Medicine; PCP Internal Medicine
DX: D64.9 Anemia, unspecified (principal); E11.22 Type 2 diabetes mellitus with diabetic chronic kidney disease; I12.9 Hypertensive chronic kidney disease with stage 1 through stage 4 chronic kidney disease, or unspecified chronic kidney disease; N18.30 Chronic kidney disease, stage 3 unspecified; E78.00 Pure hypercholesterolemia, unspecified; I48.0 Paroxysmal atrial fibrillation; I45.10 Unspecified right bundle-branch block; Z79.84 Long term (current) use of oral hypoglycemic drugs; Z79.02 Long term (current) use of antithrombotics/antiplatelets; Z79.899 Other long term (current) drug therapy
CPT/HCPCS: 36415; 36430; 80053; 82272; 83540; 85025; 85027; 85610; 86850; 86900; 86901; 86923; 93005; 99285; P9016

== ENCOUNTER 2024-11-22 11:29 | Outpatient (REF) | payer MEDICARE, SELFPAY ==
[2024-11-22 11:38] LABS: MANUAL DIFF FLAG NO
[2024-11-22 12:00] LABS: Basophils Absolute Auto 0.1 X10*3/uL (0.0-0.2); Basophils Percent Auto 1.1 % (0-2); Eosinophils Absolute Auto 0.3 X10*3/uL (0.0-0.4); Hematocrit 33.5 % (42.0-52.0); Hemoglobin 10.2 g/dl (14.0-18.0); Imm Gran Abs Auto 0.02 X10*3/uL (0.00-0.03); Imm Gran Pct Auto 0.3 % (0.0-0.4); Lymphocytes Absolute Auto 1.5 X10*3/uL (1.2-4.9); Lymphocytes Percent Auto 23.9 % (20-40); Mean Corpuscular HGB Conc 30.4 g/dl (31.0-36.0); Mean Corpuscular Hemoglobin 22.9 pg (27.0-33.0); Mean Corpuscular Volume 75.1 fL (80.0-98.0); Monocytes Absolute Auto 0.6 X10*3/uL (0.1-1.2); Monocytes Percent Auto 9.9 % (2-11); Neutrophils Absolute Auto 3.8 x10*3/uL (2.0-8.3); Neutrophils Percent Auto 59.8 % (45-73); Platelet Count 384 X10*3/uL (160-400); Red Blood Count 4.46 X10*6/uL (4.60-5.80); Red Cell Distribution Width 25.3 % (11.0-16.0); White Blood Count 6.4 X10*3/uL (4.8-10.8)
--- OUTSIDE RECORDS SUMMARY | 2024-11-22 12:47 | XMS_ITS | Clinical Summary ---
Author Organization [facility], Address [address] [place] [address] [place] [address] Phone Care Team Providers Care Infrastructure Engineer Name Role Phone Cynthia Thomas MD Primary Care Provider [phone] Allergies Active Allergy Reactions Criticality Noted Date [...] AM EDT) Hemoglobin A1C 6.1(H) (4.0-5.6) % [facility] Comment: MONITORING: In known diabetic patients, hemoglobin A1c targets should be discussed with health care provider. DIAGNOSTIC USE: ??The [place] Diabetes Association (ADA) and the World Health [...] Supplement 1 Testing performed or reported by [facility], a Service of [facility], [address] [place] [id number] Britni Gary MD, [employer] Crew[employer] [facility]# [id number] Blood (Blood, Venous) 08/02/2021 10:57 AM EDT 08/02/2021 11:00 AM EDT us Enmanuel Casanova DO LAB BLOOD ORDERABLES Final Resu lt [facility] from Last 3 Months or Most Recently Relevant to Health Maintenance Insurance [place]ID [place] [facility] [employer] Care Teams Infrastructure Engineer Relationship Specialty Start Date End Date Cynthia Thomas MD [address] [place] PCP - General 10/30/20
== END 2024-11-22 11:30 | disposition home or self-care (01) ==
LOC: HO.LAB 11:29
PROVIDERS: PCP Internal Medicine; Visit Provider Internal Medicine
DX: D64.9 Anemia, unspecified (principal)
CPT/HCPCS: 36415; 85025

== ENCOUNTER 2024-11-26 10:59 | Outpatient (AMB) | payer MEDICARE, SELFPAY ==
--- NOTE | 2024-11-26 11:06 | A.OFFPC_ITS ---
Vital Signs 11/26/24 11:07 Height 5 ft 6 in Weight 161 lb BMI 26.0 BP 148/66 H Blood Pressure Location Lt brachial Position Sitting Pulse 58 Pulse Source Pulse Oximeter Temp 97.1 F Temp Source Temporal Artery Scan Pulse Oximetry (%) 99 Oxygen Delivery Method Room Air Intake Visit Reasons: [facility] 11/[address] Mender Required: No Accompanied by: Self / Same As Patient Allergies shellfish derived Allergy (Severe, Verified 11/26/24 11:36) DIFFICULTY BREATHING,HIVES amlodipine Allergy (Unknown, Verified 11/26/24 11:36) leg edema lisinopril Allergy (Unknown, Verified 11/26/24 11:36) hyperkalemia Penicillins [PENICILLINS] Allergy (Unknown, Verified 11/26/24 11:36) HIVES Medication List - Last Reconciled 11/26/24 by TARYN Durbin apixaban (Eliquis) 5 mg PO BID 90 days atorvastatin 20 mg PO DAILY cholecalciferol (vitamin D3) 25 mcg PO DAILY 90 days cyanocobalamin (vitamin B-12) (Vitamin B-12) 1,000 mcg PO DAILY hydralazine 50 mg PO TID 30 days hydroxyzine HCl 25 mg PO BEDTIME PRN 20 days metformin 1,000 mg PO BID metoprolol succinate ER 25 mg PO BID triamcinolone acetonide 0.1% 1 appl topical BID 90 days Tobacco use date assessed: 11/03/24 Fall risk assessment: No Falls in past year Last assessed Fall Risk: 11/26/24 Dental Screening Dental Screen Date: 11/03/24 HPI [facility] 11/18 hemoglobin level low HPI Details Patient is presenting today if for post hospital follow up on 11/18/2024 for low hemoglobin The patient is a 69-year-old male with past medical history significant for hyperlipidemia, chronic kidney disease, atrial fibrillation on Eliquis, right bundle branch block, diabetes and anemia Patient presented to the emergency room complaining of low H&H. Patient states that he had his routine 4 month follow-up with his primary care physician and he was informed that his hemoglobin is low and he needed to come to emergency room to get a blood transfusion. Patient states that he has no symptoms. Denies any chest pain or shortness of breath, denies any fatigue. Patient is on Eliquis for atrial fibrillation. However, patient states that he has never seen any black stool or blood in the stool. Patient states that he feels completely normal. Patient's hemoglobin 6.6, hematocrit 23.4. Chemistry does not show any acute abnormality. Iron studies show significant iron deficiency anemia. Guaiac test his heme negative Patient's hemoglobin baseline is close to 10. Patient received 3 units of blood and was discharged with H&H 9.9/31.6 CBC was repeated on Friday11/22/24 H&H 10.2/33.5 The patient is presenting today with no concerns He denies chest pain, shortness of breath, dizziness, heart palpitation He denies abdominal pain, denies dark tarry stools and hematuria [facility] Medical History History of facial injury Hypovitaminosis D Normocytic anemia Screening for prostate cancer Hyperkalemia Pure hypercholesterolemia Essential hypertension Diabetes mellitus Surgical History History of mandibular surgery History of surgical procedure on mouth History of colonoscopy History of atrial septal defect repair History of hydrocele Family History Father Liver disease Alcohol abuse Substance use disorder Mother Diabetes Hypertension History of coronary artery bypass graft Social History Household Members: Significant Other Household Members Other:: [facility] Housing: House Alcohol intake: never Patient Tobacco Use Status: Never used Tobacco e-Cigarette/Vaping Use: Never Used Second Hand Smoke Exposure: No Advance Directives Date on File: 05/23/23 service: No Current occupational status: employed 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 Patrice Cadet, Concepcion Dutton, Jere Qiu and colleagues, with an educational manfred from [employer]. Review of Systems Const Details: Denies chills, Denies fatigue, Denies fever(s), Denies headache(s) and Denies weakness HEENT Denies change in vision, Denies dizziness, Denies headache(s), Denies hearing loss, Denies nasal congestion, Denies sinus pain, Denies sinus pressure and Denies sore throat Card Denies chest pain, Denies lightheadedness, Denies dyspnea and Denies other (palpitations) Resp Denies cough, Denies dyspnea and Denies wheezing GI Denies abdominal pain, Denies melena, Denies hematochezia, Denies change in bowel habits, Denies dyspepsia and Denies nausea Denies hematuria and Denies dysuria Musc Denies abnormal gait, Denies myalgias, Denies arthralgias, Denies numbness and Denies tingling Skin/Breast Denies rash, Denies unusual bruising and Denies wounds Neuro Denies abnormal gait, Denies dizziness, Denies headache(s), Denies memory loss, Denies numbness, Denies Sensory deficit (Neuro), Denies tingling and Denies weak ness Psych Denies anxiety, Denies depression and Denies memory loss Endo Denies cold intolerance, Denies fatigue, Denies heat intolerance, Denies polydipsia and Denies polyuria Los/Lymph Denies easy bleeding and Denies easy bruising Aller/Immun Denies wheezing Physical exam (Primary Care) Vital Signs: Last Vital Signs Temp 97.1 F 11/26/24 11:07 Pulse 58 11/26/24 11:07 BP 148/66 H 11/26/24 11:07 Pulse Ox 99 11/26/24 11:07 Oxygen Delivery Method Room Air 11/26/24 11:07 BMI result Body Mass Index 26.0 Tobacco/Smoking Status: Tobacco use Status Tobacco use date assessed 11/03/24 11/26/24 11:07 Patient Tobacco Use Status Never used Tobacco 11/26/24 11:07 e-Cigarette/Vaping Use Never Used 11/26/24 11:07 Thrive Assessment: Date of Thrive Assessment Date Thrive assessed 11/03/24 11/26/24 11:07 Const Other: General: no acute distress, well developed, alert and awake Nutritional Appearance: well nourished Orientation/consciousness: patient oriented x3 HENMT Head: Yes normocephalic and Yes atraumatic Ears: hearing grossly normal bilaterally and TM's normal bilaterally General nose exam: Normal external nose present and Normal nares present Mouth: Normal oral and palatal mucosa present and moist mucous membranes Eyes Pupils: Equal, round and reactive pupils present and Pupil accommodation reflex normal Neck Neck: Yes normal visual inspection, Yes no lymphadenopathy Lymphatic: no lymphadenopathy noted Resp Effort & Inspection: normal respiratory effort Auscultation: clear to auscultation bilaterally Cardio Rate: regular rate Rhythm: regular rhythm Heart sounds: S1 normal heart sound present, S2 normal heart sound present, no gallops, no murmurs and no rubs GI Palpation (GI): Abdomen is soft and nontender to palpation Auscultation: normal bowel sounds General: Yes no CVA tenderness Back/Spine/Pelvis Back: no CVA tenderness Cervical Spine: cervical ROM normal and No Cervical spine tenderness Thoracic/Lumbar Spine: No lumbar tenderness Skin General: warm and dry. Normal skin color. Normal skin turgor Lesions: no lesions Nails: normal Neuro General: patient oriented x3, gait normal Cranial nerves: Yes Equal, round and reactive pupils present Cognition (Neuro): normal cognition Gait exam (Neuro): Normal gait present+ Extrem General: Yes normal to inspection, No edema and No calf tenderness Psych Appearance: grossly normal Affect: normal affect Attitude: cooperative Thought process: Normal thought process present Results Reviewed Results Reviewed: Laboratory Tests 11/22/24 11:37 WBC 6.4 RBC 4.46 L Hgb 10.2 L Hct 33.5 L MCV 75.1 L MCH 22.9 L MCHC 30.4 L RDW 25.3 H Plt Count 384 Coding Level of Care Code Est Pt Level 4 (62762) Diagnoses Paroxysmal A-fib I48.0 RBBB I45.10 Essential hypertension I10 Stage 3a chronic kidney disease N18.31 Chronic kidney disease stage 3 subtype: stage 3a (GFR 45-59) Iron deficiency anemia secondary to inadequate dietary iron intake D50.8 Iron deficiency anemia type: inadequate dietary iron intake Time Spent (min) 38 Assessment & Plan Assessment & Plan (1) Paroxysmal A-fib: Code(s): I48.0 - Paroxysmal atrial fibrillation Category: Medical Plan: Continue Eliquis 5 mg b.i.d. Follow up with Cardiology as scheduled (2) RBBB: Code(s): I45.10 - Unspecified right bundle-branch block Category: Medical Plan: Patient is followed by Cardiology (3) Essential hypertension: Code(s): I10 - Essential (primary) hypertension Category: Medical Plan: Reinforced low-sodium diet Continue hydralazine 50 mg t.i.d., metoprolol succinate ER 25 mg b.i.d. Follow up with Cardiology as scheduled (4) CKD (chronic kidney disease) stage 3, GFR 30-59 ml/min: Code(s): N18.30 - Chronic kidney disease, stage 3 unspecified Category: Medical Qualifiers: Chronic kidney disease stage 3 subtype: stage 3a (GFR 45-59) Qualified Code(s): N18.31 - Chronic kidney disease, stage 3a Plan: last 30 on 11/18/24. -possibly being a factor in chronic anemia Patient is followed by Nephrology (5) Iron deficiency anemia: Code(s): D50.9 - Iron deficiency anemia, unspecified Category: Medical Qualifiers: Iron deficiency anemia type: inadequate dietary iron intake Qualified Code(s): D50.8 - Other iron deficiency anemias Plan: Patient went into the ED with an H&H of 6.6/23.4. He received 3 units of RBCs with improvement. At discharge the patient H&H was 9.9/31.6 Repeat CBC done on Friday11/22/24 H&H 10.2/33.5. The patient unable to tolerate p.o. IV supplements. Heme referral placed for possible IV iron Plan Patient has a follow up appointment in [address] Solomon for his chronic conditions. Encouraged patient to get his labs done prior to this appointment Orders: Referrals Hematology & Oncology Referral D50.9 - Iron deficiency anemia, unspecified
[2024-11-26 11:07] VITALS: BP 148/66; PULSE 58; TEMP 36.2; O2SAT 99; BMI 26.0
--- OUTSIDE RECORDS SUMMARY | 2024-11-26 12:04 | XMS_ITS | Clinical Summary ---
Author Organization [facility], Address [address] [place] [address] [place] [address] Phone Care Team Providers Care Diving Fisher Name Role Phone Cynthia Thomas MD Primary Care Provider [phone] Allergies Active Allergy Reactions Criticality Noted Date [...] AM EDT) Hemoglobin A1C 6.1(H) (4.0-5.6) % [facility] Comment: MONITORING: In known diabetic patients, hemoglobin A1c targets should be discussed with health care provider. DIAGNOSTIC USE: ??The [place] Diabetes Association (ADA) and the World Health [...] Supplement 1 Testing performed or reported by [facility], a Service of [facility], [address] [place] [id number] Britni Gary MD, Powder Worker [facility]# [id number] Blood (Blood, Venous) 08/02/2021 10:57 AM EDT 08/02/2021 11:00 AM EDT us Enmanuel Casanova DO LAB BLOOD ORDERABLES Final Resu lt [facility] from Last 3 Months or Most Recently Relevant to Health Maintenance Insurance [place]ICA[place] [facility] [employer] Care Teams Diving Fisher Relationship Specialty Start Date End Date Cynthia Thomas MD [address] [place] PCP - General 10/30/20
== END 2024-11-26 11:48 | disposition home or self-care (01) ==
PROVIDERS: PCP Internal Medicine
DX: I48.0 Paroxysmal atrial fibrillation (principal); I45.10 Unspecified right bundle-branch block; I10 Essential (primary) hypertension; N18.31 Chronic kidney disease, stage 3a; D50.8 Other iron deficiency anemias

== ENCOUNTER → 2024-11-26 10:59 | Outpatient (BNVA) | payer MEDICARE, SELFPAY | PROVIDERS: PCP Internal Medicine | DX: I48.0 Paroxysmal atrial fibrillation (principal); I45.10 Unspecified right bundle-branch block; I12.9 Hypertensive chronic kidney disease with stage 1 through stage 4 chronic kidney disease, or unspecified chronic kidney disease; N18.31 Chronic kidney disease, stage 3a; D50.8 Other iron deficiency anemias | CPT/HCPCS: 99212 ==

== ENCOUNTER 2024-12-20 09:56 | Outpatient (AMB) | payer MEDICARE, SELFPAY ==
[2024-12-20 10:20] VITALS: BP 158/60; PULSE 62; BMI 25.2
--- NOTE | 2024-12-20 10:20 | A.OFFVIS_ITS ---
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 Required: No Accompanied by: Self / Same As Patient Allergies shellfish derived Allergy (Severe, Verified 11/26/24 11:36) DIFFICULTY BREATHING,HIVES amlodipine Allergy (Unknown, Verified 11/26/24 11:36) leg edema lisinopril Allergy (Unknown, Verified 11/26/24 11:36) hyperkalemia Penicillins [PENICILLINS] Allergy (Unknown, Verified 11/26/24 11:36) HIVES Medication List - Last Reconciled 12/20/24 by Lonnie Preston MD apixaban (Eliquis) 5 mg PO BID 90 days atorvastatin 20 mg PO DAILY cholecalciferol (vitamin D3) 25 mcg PO DAILY 90 days cyanocobalamin (vitamin B-12) (Vitamin B-12) 1,000 mcg PO DAILY hydralazine 50 mg PO TID 30 days metformin 1,000 mg PO BID metoprolol succinate ER 25 mg PO BID triamcinolone acetonide 0.1% 1 appl topical BID 90 days HPI Comments Details: Julio returns for follow-up regarding various cardiac issues. He has a history of right bundle-branch block going back more than 20 years. Otherwise, in 1975, he had open heart surgery. Probable atrial septal defect repair but we do not have any clear documentation. Performed in [place]. 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 He states he is doing pretty good. No cardiac complaints. No physical limitations. Otherwise, he came for a stress test in 2022. At that time, he went into atrial fibrillation during the test. Then put on beta-blockers/Eliquis. No issues from that. [facility] Medical History History of facial injury Hypovitaminosis D Normocytic anemia Screening for prostate cancer Hyperkalemia Pure hypercholesterolemia Essential hypertension Diabetes mellitus Surgical History History of mandibular surgery History of surgical procedure on mouth History of colonoscopy History of atrial septal defect repair History of hydrocele Family History Father Liver disease Alcohol abuse Substance use disorder Mother Diabetes Hypertension History of coronary artery bypass graft Social History Household Members: Significant Other Household Members Other:: iris Housing: House Alcohol intake: never Patient Tobacco Use Status: Never used Tobacco e-Cigarette/Vaping Use: Never Used Second Hand Smoke Exposure: No Advance Directives Date on File: 05/23/23 service: No Current occupational status: employed 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 Current occupational exposures/hazards: No Cognitive needs: No Hearing needs: No Vision needs: Yes Review of Systems Const Denies chills, Denies fatigue, Denies fever(s), Denies weight gain and Denies weight loss ENT Denies dizziness Card Denies chest pain, Denies leg edema, Denies lightheadedness, Denies palpitations, Denies dyspnea on exertion, Denies orthopnea and Denies other Resp Denies cough and Denies dyspnea on exertion GI Denies hematochezia and Denies change in stool character Musc Denies abnormal gait, Denies muscle weakness, Denies numbness, Denies radiating pain into limb and Denies tingling Neuro Denies abnormal gait, Denies dizziness, Denies numbness and Denies tingling Endo Denies fatigue and Denies palpitations Physical Exam Vital Signs: Last Vital Signs Pulse 62 12/20/24 10:20 BP 158/60 H 12/20/24 10:20 BMI result Body Mass Index 25.2 Const General: comfortable and no acute distress Orientation/consciousness: patient oriented x3 HEENT Other: Unremarkable Head: Yes normal to inspection Neck Neck: Yes normal visual inspection Chest Chest palpation & inspection: normal inspection of the chest Resp Auscultation: clear to auscultation bilaterally Cardio Palpation: normal PMI Heart sounds: S1 normal heart sound present, S2 normal heart sound present, no gallops, no murmurs and no rubs GI Palpation (GI): Soft to palpation Back/Spine/Pelvis Other: unremarkable Skin General skin exam: no rashes or lesions noted Neuro General: patient oriented x3 Extrem General: Yes normal to inspection Psych Mental Status: mental status grossly normal Assessment & Plan Assessment & Plan (1) RBBB: Code(s): I45.10 - Unspecified right bundle-branch block Category: Medical (2) History of atrial septal defect repair: Comment: 1975 Code(s): Z87.74 - Personal history of (corrected) congenital malformations of heart and circulatory system Category: Surgical (3) Paroxysmal A-fib: Code(s): I48.0 - Paroxysmal atrial fibrillation Category: Medical (4) Non-rheumatic mitral regurgitation: Code(s): I34.0 - Nonrheumatic mitral (valve) insufficiency Category: Medical Plan Cardiac studies reviewed. Right bundle-branch block itself is chronic and goes back several years. A prior echocardiogram from 2013 described to have mild LV dilatation, LVEF of 60-65%, mild anterior mitral leaflet prolapse and [id number] mitral regurgitation, posteriorly directed jet. In a more recent study from 2022, there was only mild mitral regurgitation. LVEF is preserved at 59%. Mild LVH with moderate diastolic dysfunction. Moderate left atrial dilatation. Exercise echocardiogram was negative for ischemia at 10.1 METS exercise capacity. But he developed atrial fibrillation during the study. Right bundle-branch block could possibly be related to his history of open heart surgery for ASD. No specific management overall. Mitral regurgitation also does not seem clinically significant at this time. With regard to atrial fibrillation, stable on beta-blockers/Eliquis. Follow-up Holter shows sinus rhythm. Blood pressure is on the higher side. It seems that there are various issues with other meds. Amlodipine caused leg swelling. With lisinopril, he had hyperkalemia. Currently on metoprolol/hydralazine. We can try to switch metoprolol to carvedilol to see if that helps. Discussed with patient. He states he also goes to Nephrology and they can make further recommendations. 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 Follow-up in one year. Orders: Orders CA echo transthoracic complete 1 Year I34.0 - Nonrheumatic mitral (valve) insufficiency, I45.10 - Unspecified right bundle-branch block, I48.0 - Paroxysmal atrial fibrillation, Z87.74 - Personal history of (corrected) congenital malformations of heart and circulatory system Medications: New carvedilol (Coreg) must administer with a meal/food 6.25 mg PO BID 180 tabs 3RF 90 days Discontinued metoprolol succinate ER Discontinued Reason: Doctor's Order 25 mg PO BID 180 tabs 3RF Coding Level of Care Code Est Pt Level 4 (74452) Complex EM visit Add On G2211 Diagnoses RBBB I45.10 History of atrial septal defect repair Z87.74 Paroxysmal A-fib I48.0 Non-rheumatic mitral regurgitation I34.0
--- OUTSIDE RECORDS SUMMARY | 2024-12-20 11:15 | XMS_ITS | Clinical Summary ---
Author Organization [facility], Address [address] [place] [address] [place] [address] Phone Care Team Providers Care Rail Maintenance Worker Name Role Phone Cynthia Thomas MD Primary Care Provider [phone] Allergies Active Allergy Reactions Criticality Noted Date [...] AM EDT) Hemoglobin A1C 6.1(H) (4.0-5.6) % [facility] Comment: MONITORING: In known diabetic patients, hemoglobin A1c targets should be discussed with health care provider. DIAGNOSTIC USE: ??The [place] Diabetes Association (ADA) and the World Health [...] 1 Testing performed or reported by [facility], a Service of [facility], [address] [place] [id number] Britni Gary MD, Chicken Picker [facility]# [id number] Blood (Blood, Venous) 08/02/2021 10:57 AM EDT 08/02/2021 11:00 AM EDT us Enmanuel Casanova DO LAB BLOOD ORDERABLES Final Resu lt [facility] from Last 3 Months or Most Recently Relevant to Health Maintenance Insurance [place] [facility] [employer] Care Teams Rail Maintenance Worker Relationship Specialty Start Date End Date Cynthia Thomas MD [address] [place] PCP - General 10/30/20
== END 2024-12-20 10:53 | disposition home or self-care (01) ==
PROVIDERS: PCP Internal Medicine; Visit Provider Internal Medicine
DX: I45.10 Unspecified right bundle-branch block (principal); Z87.74 Personal history of (corrected) congenital malformations of heart and circulatory system; I48.0 Paroxysmal atrial fibrillation; I34.0 Nonrheumatic mitral (valve) insufficiency
CPT/HCPCS: 99214; G2211

== ENCOUNTER → 2024-12-20 09:56 | Outpatient (BNVA) | payer MEDICARE, SELFPAY | PROVIDERS: PCP Internal Medicine; Visit Provider Internal Medicine | DX: I48.0 Paroxysmal atrial fibrillation (principal); I45.10 Unspecified right bundle-branch block; I35.0 Nonrheumatic aortic (valve) stenosis; Z87.74 Personal history of (corrected) congenital malformations of heart and circulatory system | CPT/HCPCS: 99212 ==

== ENCOUNTER 2025-01-19 09:30 | Outpatient (RCR) | payer MEDICARE, SELFPAY ==
[2024-12-15 08:56] VITALS: BP 156/62; PULSE 77; RESP 16; TEMP 37; O2SAT 98
[2024-12-15] MEDS: Iron Sucrose Complex 200 MG/10 ML VIAL IVPUSH (09:01)
[2024-12-22 10:57] VITALS: BP 155/70; PULSE 57; RESP 14; TEMP 37.2; O2SAT 100
[2024-12-22] MEDS: Iron Sucrose Complex 200 MG/10 ML VIAL IVPUSH (11:08)
[2024-12-22] MEDS: 0.9 % Sodium Chloride Flush 10 ML SYRINGE 5 ML IVFLUSH (11:15)
[2024-12-29 09:39] VITALS: BP 147/63; PULSE 55; RESP 14; TEMP 37.1; O2SAT 99
[2024-12-29] MEDS: Iron Sucrose Complex 200 MG/10 ML VIAL IVPUSH (09:52)
[2024-12-29] MEDS: 0.9 % Sodium Chloride Flush 10 ML SYRINGE 5 ML IVFLUSH (09:59)
[2025-01-05 09:26] VITALS: BP 136/46; PULSE 67; RESP 14; TEMP 36.6; O2SAT 98
[2025-01-05] MEDS: Iron Sucrose Complex 200 MG/10 ML VIAL IVPUSH (09:37)
[2025-01-05] MEDS: 0.9 % Sodium Chloride Flush 10 ML SYRINGE 5 ML IVFLUSH (09:50)
[2025-01-12 08:46] VITALS: BP 140/61; PULSE 60; RESP 14; TEMP 36.9; O2SAT 100
[2025-01-12] MEDS: Iron Sucrose Complex 200 MG/10 ML VIAL IVPUSH (09:20)
[2025-01-19 09:28] VITALS: BP 142/54; PULSE 66; RESP 16; TEMP 37; O2SAT 99
[2025-01-19] MEDS: Iron Sucrose Complex 200 MG/10 ML VIAL IVPUSH (09:37)
== END 2025-01-19 10:50 | disposition home or self-care (01) ==
LOC: HO.INF 09:30
PROVIDERS: Visit Provider Internal Medicine
DX: D50.9 Iron deficiency anemia, unspecified (principal)
CPT/HCPCS: 96374; J1756

== ENCOUNTER 2025-01-25 10:00 | Outpatient (RCR) | payer MEDICARE, SELFPAY | END 2025-05-04 09:24 | disposition home or self-care (01) | LOC: HO.PT 10:00 | PROVIDERS: PCP Internal Medicine; Visit Provider Physician Assistant | DX: S42.201D Unspecified fracture of upper end of right humerus, subsequent encounter for fracture with routine healing (principal); X58.XXXD Exposure to other specified factors, subsequent encounter | CPT/HCPCS: 97110; 97140; 97162 ==

== ENCOUNTER 2025-03-26 09:09 | Outpatient (REF) | payer MEDICARE, SELFPAY ==
[2025-03-26 10:02] LABS: Microalbumin Urine < 5.0 mg/L
[2025-03-26 10:13] LABS: Alanine Aminotransferase 18 U/L (0-40); Albumin Level 4.6 g/dL (3.5-5.0); Alkaline Phosphatase 102 U/L (39-117); Anion Gap 12 (12-20); Aspartate Amino Transferase 26 U/L (5-37); Bilirubin Total 0.5 mg/dL (0.0-1.0); Blood Urea Nitrogen 15 mg/dL (9-16); Carbon Dioxide 27 mmol/L (22-29); Chloride 105 mmol/L (96-108); Cholesterol 132 mg/dL (<200); Estimated Glomerular Filt Rate 54; Glucose Fasting 115 mg/dL (60-99); HDL Cholesterol 47 mg/dL (>40); Iron 81 mcg/dL (45-160); LDL Cholesterol Calculated 67 mg/dL (<100); Percent Iron Saturation 26 % (15-50); Potassium 5.2 mmol/L (3.3-5.1); Sodium 139 mmol/L (135-145); Total Iron Binding Capacity 317 mcg/dL (228-428); Total Protein 7.4 g/dL (6.5-8.0); Triglycerides 90 mg/dL (<150); Unsaturated Iron Binding 236 ug/dL
[2025-03-26 10:30] LABS: Vitamin D 25-OH Total 41.1 ng/mL (>30)
== END 2025-03-26 09:10 | disposition home or self-care (01) ==
LOC: HO.LAB 09:09
PROVIDERS: PCP Internal Medicine; Visit Provider Internal Medicine
DX: R80.9 Proteinuria, unspecified (principal); E78.5 Hyperlipidemia, unspecified; E55.9 Vitamin D deficiency, unspecified; N18.31 Chronic kidney disease, stage 3a; D64.9 Anemia, unspecified
CPT/HCPCS: 36415; 80053; 80061; 82043; 82306; 82570; 83540

== ENCOUNTER 2025-04-27 09:49 | Outpatient (AMB) | payer MEDICARE, SELFPAY ==
[2025-04-27 10:12] VITALS: BP 138/70; BMI 24.9
--- NOTE | 2025-04-27 10:12 | MHC.PC.OV ---
Vital Signs 04/27/25 10:12 Height 5 ft 7 in Weight 159 lb BMI 24.9 BP 138/70 Blood Pressure Location Lt brachial Position Sitting Intake Visit Reasons: follow up Intake Note: Patient here for a follow up DM Vegetable Buncher Required: No Accompanied by: Self / Same As Patient Allergies shellfish derived Allergy (Severe, Verified 04/27/25 10:19) DIFFICULTY BREATHING,HIVES amlodipine Allergy (Unknown, Verified 04/27/25 10:19) leg edema lisinopril Allergy (Unknown, Verified 04/27/25 10:19) hyperkalemia Penicillins (PENICILLINS) Allergy (Unknown, Verified 04/27/25 10:19) HIVES Medication List - Last Reconciled 04/27/25 by Cynthia Jackson MD apixaban (Eliquis) 5 mg PO BID 90 days atorvastatin 20 mg PO DAILY carvedilol (Coreg) 6.25 mg PO BID 90 days cholecalciferol (vitamin D3) 25 mcg PO DAILY 90 days cyanocobalamin (vitamin B-12) (Vitamin B-12) 1,000 mcg PO DAILY hydralazine 50 mg PO TID 30 days metformin 1,000 mg PO BID triamcinolone acetonide 0.1% 1 appl topical BID 90 days Tobacco use date assessed: 11/03/24 Dental Screening Dental Screen Date: 04/27/25 Did you have a dental visit in the last 12 months?: Yes Did you have a dental problem in the last 6 months where you did not have access to dental care?: No Was dental information given to patient?: Patient has dentist HPI HPI Comments History of Present Illness Details This is a 69-year-old male with diabetes mellitus type 2, hypertension, hyperlipidemia and atrial fibrillation that comes today for follow-up on his conditions. A1c of 6.2% today which is within goal. Blood pressure well controlled. LDL within goal being less than 70. Potassium of 5.2 he will follow with Nephrology next week. Few months ago had an episode of anemia requiring blood transfusion and saw Hematology-Oncology for this matter. They got him on iron infusion which increase it to 11.5 back in January. He still follows with Hematology-Oncology for this matter. On chronic anticoagulation for atrial fibrillation which has been stable and follow by cardiology. [facility] Medical History History of facial injury Hypovitaminosis D Normocytic anemia Screening for prostate cancer Hyperkalemia Pure hypercholesterolemia Essential hypertension Diabetes mellitus Surgical History History of mandibular surgery History of surgical procedure on mouth History of colonoscopy History of atrial septal defect repair History of hydrocele Family History Father Liver disease Alcohol abuse Substance use disorder Mother Diabetes Hypertension History of coronary artery bypass graft Social History Household Members: Significant Other Household Members Other:: iris Housing: House Alcohol intake: never Patient Tobacco Use Status: Never used Tobacco e-Cigarette/Vaping Use: Never Used Second Hand Smoke Exposure: No Advance Directives Date on File: 05/23/23 service: No Current occupational status: employed 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 1. Little interest or pleasure in doing things: not at all 2. Feeling down, depressed, or hopeless: not at all 3. Trouble falling or staying asleep, or sleeping too much: not at all 4. Feeling tired or having little energy: not at all 5. Poor appetite or overeating: not at all 6. Feeling bad about yourself - or that you are a failure or have let yourself or your family down: not at all 7. Trouble concentrating on things, such as reading the newspaper or watching television: not at all 8. Moving or speaking so slowly that other people could have noticed. Or the opposite - being so fidgety or restless that you have been moving around a lot more than usual: not at all 9. Thoughts that you would be better off or of hurting yourself in some way: not at all Total score: 0 Depression Screening Interpretation: Negative Depression Screening Done: Yes 51152 - PHQ-9 Billing: Yes Source: Developed by Drs. Patrice Cadet, Concepcion Dutton, Jere Qiu and colleagues, with an educational manfred from [employer]. Thrive Questionnaire Date Thrive assessed: 04/27/25 I am a: Patient What is your living situation today?: I have a steady place to live Within the past 12 months, did the food you bought not last and you didn't have the money to get more?: I choose not to answer this question Within the past 12 months, did you worry whether your food would run out before you got money to buy more?: Never true Do you have trouble paying for medicines?: No Do you have trouble getting transportation to medical appointments?: No Do you have trouble paying your heating and electricity bill?: No Do you have trouble taking care of your child, family member or friend?: No Do you have trouble with day-to-day activities such as bathing, preparing meals, shopping, managing finances, etc.?: No Are you currently unemployed and looking for a job?: No Are you interested in more education?: No Please select the resources that you would like help with: None Currently or been in a relationship where the following occur: No concerns reported THRIVE Score: 0 AUDIT C Alcohol Use Questionnaire (AUDIT-C) 1. How often do you have a drink containing alcohol?: Monthly or less 2. How many drinks containing alcohol do you have on a typical day when you are drinking?: 1 or 2 3. How often do you have six or more drinks on one occasion?: Never Total Score: 1 Score Reviewed/Action Taken: No MK-7 AMB Questionnaire MK-7 Date MK - 7 assessed: 04/27/25 Feeling nervous, anxious, or on edge: 0 = Not at all Not being able to stop or control worryin = Not at all Worrying too much about different things: 0 = Not at all Trouble relaxin = Not at all Being so restless that it is hard to sit still: 0 = Not at all Becoming easily annoyed or irritable: 0 = Not at all Feeling afraid as if something awful might happen: 0 = Not at all Total MK-7 score (0-4 normal; 5-9 mild; 10-14 moderate; 15-21 severe): 0 Source: Developed by Drs. Patrice Cadet, Jere Camp and colleagues, with an educational manfred from [employer]. MK-7 Assessment Billing MK-7 Assessment Tool: MK-7 Assessment 61939 Review of Systems Const All systems reviewed & are unremarkable except as noted in HPI and below Card Denies chest pain at rest, Denies chest pain with activity, Denies edema, Denies irregular heart rhythm, Denies claudication, Denies dyspnea, Denies dyspnea on exertion, Denies orthopnea, Denies paroxysmal nocturnal dyspnea and Denies slow heart rate Resp Denies cough, Denies dyspnea and Denies dyspnea on exertion GI Denies abdominal pain, Denies change in bowel habits, Denies excessive flatus, Denies nausea and Denies vomiting Physical exam (Primary Care) Vital Signs: Last Vital Signs BP 138/70 04/27/25 10:12 BMI result Body Mass Index 24.9 Tobacco/Smoking Status: Tobacco use Status Tobacco use date assessed 11/03/24 04/27/25 10:14 Patient Tobacco Use Status Never used Tobacco 04/27/25 10:14 e-Cigarette/Vaping Use Never Used 04/27/25 10:14 PHQ-9: PHQ-9 Score PHQ-9: Total score 0 04/27/25 10:22 Depression Screening Interpretation: Negative Thrive Assessment: Date of Thrive Assessment Date Thrive assessed 04/27/25 04/27/25 10:16 Currently or been in a relationship where the following occur: No concerns reported Resp Effort & Inspection: normal respiratory effort Auscultation: clear to auscultation bilaterally Cardio Jugular venous distension: no JVD Rate: regular rate Rhythm: regular rhythm Heart sounds: S1 normal heart sound present and S2 normal heart sound present Extrem General: Yes full ROM Results AMB Hemoglobin A1c AMB Hemoglobin A1c 6.2 % Last Edit by JOSE Yip on 04/27/25 10:22 Results Reviewed Results Reviewed: Laboratory Last Values Hgb A1c (Clinic) 6.2 % (4.0-6.0) H 04/27/25 10:11 Coding Level of Care Code Est Pt Level 4 (87664) Complex EM visit Add On G2211 Diagnoses Paroxysmal A-fib I48.0 Essential hypertension I10 Hyperlipidemia LDL goal <70 E78.5 Type 2 diabetes mellitus without complication, without long-term current use of insulin E11.9 Diabetes mellitus type: type 2 Diabetes mellitus intermediate designer insulin use: without intermediate designer use Diabetes mellitus complication status: without complication Additional Codes MK-7 Assessment Billing - MK-7 Assessment Tool: MK-7 Assessment 93021 ([id number]) PHQ-9 - 04198 - PHQ-9 Billing: Yes ([id number]) Time Spent (min) 24 Assessment & Plan Assessment & Plan (1) Paroxysmal A-fib: Code(s): I48.0 - Paroxysmal atrial fibrillation Category: Medical (2) Essential hypertension: Code(s): I10 - Essential (primary) hypertension Category: Medical (3) Hyperlipidemia LDL goal <70: Code(s): E78.5 - Hyperlipidemia, unspecified Category: Medical (4) Diabetes mellitus: Code(s): E11.9 - Type 2 diabetes mellitus without complications Category: Medical Qualifiers: Diabetes mellitus type: type 2 Diabetes mellitus fci insulin use: without intermediate designer use Diabetes mellitus complication status: without complication Qualified Code(s): E11.9 - Type 2 diabetes mellitus without complications Plan Continue current meds. Orders: Orders Microalbumin, Random (w Creat) 4 Months R80.9 - Proteinuria, unspecified AMB Hemoglobin A1c Today E11.9 - Type 2 diabetes mellitus without complications Lipid Panel 4 Months E78.5 - Hyperlipidemia, unspecified Vitamin D 25-OH Total 4 Months E55.9 - Vitamin D deficiency, unspecified Comprehensive [place]. Panel Fast 4 Months I48.0 - Paroxysmal atrial fibrillation
--- OUTSIDE RECORDS SUMMARY | 2025-04-27 10:25 | XMS_ITS | Encounter Summary ---
Author Organization [facility] Address [address] [place] [address] Phone Care Team Providers Care Department Coordinator Name Role Phone Cynthia Thomas MD Primary Care Provider [phone] Encounter Details Date Type Department Care Team (Late Contact Info) Description 03/02/2025 Documentation Only [facility] [address] [place] [address] Lolly Donohue [address] [place] [address] Social History Tobacco Use Types Packs/Day Years Used Date Smoking Tobacco: Never Alcohol Use Standard Drinks/Week Comments No 0 (1 standard drink = 0.6 oz pur e alcohol) Sex and Gender Information Value Date Recorded Sex Assigned at Not on file Legal Sex Male 5:18 PM EST Gender Identity Not on file Sexual Orientation Not on file documented as of this encounter Plan of Treatment Upcoming Encounters Date Type Department Care Team (Late st Contact Info) Description 08/03/2025 2:30 PM EDT Office Visit [facility] [address] [place] [address] Enmanuel Casanova DO [address] [place] [address] [place] [address] documented as of this encounter Visit Diagnoses Not on filedocumented in this encounter Care Teams Department Coordinator Relationship Specialty Start Date End Date Cynthia Thomas MD [address] [place], [place] PCP - General 10/30/20 documented as of this encounter
== END 2025-04-27 10:35 | disposition home or self-care (01) ==
LOC: HO.HMCH 09:50
PROVIDERS: PCP Internal Medicine; Visit Provider Internal Medicine
DX: I48.0 Paroxysmal atrial fibrillation (principal); I10 Essential (primary) hypertension; E78.5 Hyperlipidemia, unspecified; E11.9 Type 2 diabetes mellitus without complications

== ENCOUNTER → 2025-04-27 09:49 | Outpatient (BNVA) | payer MEDICARE, SELFPAY | PROVIDERS: PCP Internal Medicine; Visit Provider Internal Medicine | DX: I48.0 Paroxysmal atrial fibrillation (principal); I10 Essential (primary) hypertension; E78.5 Hyperlipidemia, unspecified; E11.9 Type 2 diabetes mellitus without complications; Z79.01 Long term (current) use of anticoagulants; Z13.31 Encounter for screening for depression; Z13.30 Encounter for screening examination for mental health and behavioral disorders, unspecified | CPT/HCPCS: 83036; 96127; 99212 ==

== ENCOUNTER 2025-09-13 09:15 | Outpatient (REF) | payer MEDICARE, SELFPAY ==
[2025-09-13 10:56] LABS: Microalbum/Creatinine Ratio Ur 6.2 ug/mg cr (<30)
== END 2025-09-13 09:16 | disposition home or self-care (01) ==
LOC: HO.LAB 09:15
PROVIDERS: PCP Internal Medicine; Visit Provider Internal Medicine
DX: I48.0 Paroxysmal atrial fibrillation (principal); E55.9 Vitamin D deficiency, unspecified; R80.9 Proteinuria, unspecified; E78.5 Hyperlipidemia, unspecified
CPT/HCPCS: 36415; 80053; 80061; 82043; 82306; 82570

== ENCOUNTER 2025-09-20 09:45 | Outpatient (AMB) | payer MEDICARE, SELFPAY ==
--- NOTE | 2025-09-20 09:50 | A.OFFPC_ITS ---
Vital Signs 09/20/25 09:51 Height 5 ft 7 in Weight 156 lb 6 oz BMI 24.5 BP 100/64 Blood Pressure Location Lt brachial Position Sitting Pulse 68 Pulse Source Pulse Oximeter Temp 97.5 F Temp Source Temporal Artery Scan Pulse Oximetry (%) 98 Oxygen Delivery Method Room Air Intake Visit Reasons: dm Intake Note: Patient is here to follow up on DM. Drywall Sprayer Required: No Drafter Structural: Not Required per policy Accompanied by: Self / Same As Patient Allergies shellfish derived Allergy (Severe, Verified 09/20/25 10:06) DIFFICULTY BREATHING,HIVES amlodipine Allergy (Unknown, Verified 09/20/25 10:06) leg edema lisinopril Allergy (Unknown, Verified 09/20/25 10:06) hyperkalemia Penicillins (PENICILLINS) Allergy (Unknown, Verified 09/20/25 10:06) HIVES Medication List - Last Reconciled 09/20/25 by Cynthia Jackson MD apixaban (Eliquis) 5 mg PO BID 90 days atorvastatin 20 mg PO DAILY carvedilol (Coreg) 6.25 mg PO BID 90 days cholecalciferol (vitamin D3) 25 mcg PO DAILY 90 days cyanocobalamin (vitamin B-12) (Vitamin B-12) 1,000 mcg PO DAILY hydralazine 50 mg PO TID 30 days metformin 1,000 mg PO BID triamcinolone acetonide 0.1% 1 appl topical BID 90 days Tobacco use date assessed: 09/20/25 Fall risk assessment: No Falls in past year Last assessed Fall Risk: 09/20/25 Dental Screening Dental Screen Date: 04/27/25 HPI HPI Comments History of Present Illness Details The patient is a 70 year old individual presenting for a follow-up visit for chronic disease management. The patient carries diagnoses of atrial fibrillation, for which the patient takes Eliquis twice daily, and hypertension, which is managed with carvedilol and hydralazine 50 mg three times daily. The patient has known allergies to shellfish and penicillin, which causes hives, as well as medication intolerances to amlodipine, which caused leg swelling, and lisinopril, which caused hyperkalemia. The patient has hyperlipidemia treated with atorvastatin 20 mg and type 2 diabetes mellitus managed with metformin twice daily. The patient also takes vitamin D and B12 supplements, and uses triamcinolone cream for eczema. He has A1c of 5.3% today. The patient's hemoglobin is stable, and a microalbuminuria test on September 13 was normal at 6. Past medical history is notable for a fall and lung problems. For health maintenance, the patient is due for a colonoscopy. [facility] Medical History History of facial injury Hypovitaminosis D Normocytic anemia Screening for prostate cancer Hyperkalemia Pure hypercholesterolemia Essential hypertension Diabetes mellitus Surgical History History of mandibular surgery History of surgical procedure on mouth History of colonoscopy History of atrial septal defect repair History of hydrocele Family History Father Liver disease Alcohol abuse Substance use disorder Mother Diabetes Hypertension History of coronary artery bypass graft Social History Household Members: Significant Other Household Members Other:: iris Housing: House Alcohol intake: never Patient Tobacco Use Status: Never used Tobacco e-Cigarette/Vaping Use: Never Used Second Hand Smoke Exposure: No Advance Directives Date on File: 05/23/23 service: No Current occupational status: employed 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 Current occupational exposures/hazards: No Cognitive needs: No Hearing needs: No Vision needs: Yes Questionnaire Thrive Questionnaire Date Thrive assessed: 04/27/25 I am a: Patient What is your living situation today?: I have a steady place to live Within the past 12 months, did the food you bought not last and you didn't have the money to get more?: I choose not to answer this question Within the past 12 months, did you worry whether your food would run out before you got money to buy more?: Never true Do you have trouble paying for medicines?: No Do you have trouble getting transportation to medical appointments?: No Do you have trouble paying your heating and electricity bill?: No Do you have trouble taking care of your child, family member or friend?: No Do you have trouble with day-to-day activities such as bathing, preparing meals, shopping, managing finances, etc.?: No Are you currently unemployed and looking for a job?: No Are you interested in more education?: No Please select the resources that you would like help with: None Currently or been in a relationship where the following occur: No concerns reported THRIVE Score: 0 MK-7 AMB Questionnaire MK-7 Date MK - 7 assessed: 04/27/25 Source: Developed by Drs. Patrice Cadet, Concepcion Dutton, Jere Qiu and colleagues, with an educational manfred from [employer]. Review of Systems Const All systems reviewed & are unremarkable except as noted in HPI and below Card Denies chest pain at rest, Denies chest pain with activity, Denies edema, Denies irregular heart rhythm, Denies claudication, Denies dyspnea, Denies dyspnea on exertion, Denies orthopnea, Denies paroxysmal nocturnal dyspnea and Denies slow heart rate Resp Denies cough, Denies dyspnea and Denies dyspnea on exertion GI Denies abdominal pain, Denies change in bowel habits, Denies excessive flatus, Denies nausea and Denies vomiting Physical exam (Primary Care) Vital Signs: Last Vital Signs Temp 97.5 F 09/20/25 09:51 Pulse 68 09/20/25 09:51 BP 100/64 09/20/25 09:51 Pulse Ox 98 09/20/25 09:51 Oxygen Delivery Method Room Air 09/20/25 09:51 BMI result Body Mass Index 24.5 Tobacco/Smoking Status: Tobacco use Status Tobacco use date assessed 09/20/25 09/20/25 09:57 Patient Tobacco Use Status Never used Tobacco 09/20/25 09:50 e-Cigarette/Vaping Use Never Used 09/20/25 09:50 Thrive Assessment: Date of Thrive Assessment Date Thrive assessed 04/27/25 09/20/25 09:50 Currently or been in a relationship where the following occur: No concerns reported Resp Effort & Inspection: normal respiratory effort Auscultation: clear to auscultation bilaterally Cardio Jugular venous distension: no JVD Rate: regular rate Rhythm: regular rhythm Heart sounds: S1 normal heart sound present and S2 normal heart sound present Extrem General: Yes full ROM Results AMB Hemoglobin A1c AMB Hemoglobin A1c 5.9 % Last Edit by JOSE Gaxiola on 09/20/25 10:28 Results Reviewed Results Reviewed: Laboratory Last Values Hgb A1c (Clinic) 5.9 % (4.0-6.0) 09/20/25 09:49 Coding Level of Care Code Complex visit Add On G2211 Diagnoses Paroxysmal A-fib I48.0 Essential hypertension I10 Type 2 diabetes mellitus without complication, without long-term current use of insulin E11.9 Diabetes mellitus complication status: without complication Diabetes mellitus nursing home insulin use: without nursing home use Diabetes mellitus type: type 2 Hyperlipidemia LDL goal <70 E78.5 Time Spent (min) 23 Assessment & Plan Assessment & Plan (1) Paroxysmal A-fib: Code(s): I48.0 - Paroxysmal atrial fibrillation Category: Medical (2) Essential hypertension: Code(s): I10 - Essential (primary) hypertension Category: Medical (3) Diabetes mellitus: Code(s): E11.9 - Type 2 diabetes mellitus without complications Category: Medical Qualifiers: Diabetes mellitus complication status: without complication Diabetes mellitus technician terminal and repeater insulin use: without nursing home use Diabetes mellitus type: type 2 Qualified Code(s): E11.9 - Type 2 diabetes mellitus without complications (4) Hyperlipidemia LDL goal <70: Code(s): E78.5 - Hyperlipidemia, unspecified Category: Medical Plan Plan 1. Atrial Fibrillation The patient will continue Eliquis twice daily for management of atrial fibrillation. 2. Essential Hypertension The patient's blood pressure is well controlled. The patient will continue the current regimen of carvedilol twice a day and hydralazine 50 mg three times a day. 3. Hyperlipidemia The patient will continue atorvastatin 20 mg. A lipid panel will be ordered for the patient to complete in 4 months. 4. Type 2 Diabetes Mellitus The patient's recent blood sugar of 5.3 is well-controlled. The patient will continue metformin twice daily. A check for protein in the urine will be performed in 4 months. 5. Eczema The patient will continue to use triamcinolone cream as needed. 6. Health Maintenance The patient is due for a colonoscopy for colorectal cancer screening. Orders: Orders Microalbumin, Random (w Creat) 4 Months R80.9 - Proteinuria, unspecified Comprehensive [place]. Panel Fast 4 Months I48.0 - Paroxysmal atrial fibrillation AMB Hemoglobin A1c Today E11.9 - Type 2 diabetes mellitus without complications Lipid Panel 4 Months E78.5 - Hyperlipidemia, unspecified Vitamin D 25-OH Total 4 Months E55.9 - Vitamin D deficiency, unspecified Vitamin B12 and Folate 4 Months E53.8 - Deficiency of other specified B group vitamins Referrals Open Access Screening Colonoscopy Referral Z12.12 - Encounter for screening for malignant neoplasm of rectum
[2025-09-20 09:51] VITALS: BP 100/64; PULSE 68; TEMP 36.4; O2SAT 98; BMI 24.5
--- OUTSIDE RECORDS SUMMARY | 2025-09-20 10:48 | XMS_ITS | Encounter Summary ---
Author Organization [facility] Address [address] [place] [address] Phone Care Team Providers Care Research And Evaluation Analyst Name Role Phone Cynthia Thomas MD Primary Care Provider Encounter Details Date Type Department Care Team (Late Contact Info) Description 03/02/2025 Documentation Only [facility] [address] [address] Lolly Donohue [address] [place] [address] Social History Tobacco Use Types [...] Care Team (Late st Contact Info) Description 10/12/2025 2:15 PM EST Office Visit [facility] [address] [place] [address] Enmanuel Casanova DO [address] [place] [address] [place] [address] documented as of this encounter Visit Diagnoses Not on filedocumented in this encounter Care Teams Research And Evaluation Analyst Relationship Specialty Start Date End Date Cynthia Thomas MD [address] [place], [place] PCP - General 10/30/20 documented as of this encounter
--- OUTSIDE RECORDS SUMMARY | 2025-09-20 10:48 | XMS_ITS | Clinical Summary ---
Author Organization [facility] [place], Address [address] [place] [address] [place] [address] Phone Care Team Providers Care Promotions Assistant Name Role Phone Cynthia Thomas MD Primary Care Provider [phone] Allergies Active Allergy Reactions Criticality Noted Date [...] Mass Index - - Plan of Treatment Upcoming Encounters Date Type Department Care Team (Late st Contact Info) Description 10/12/2025 2:15 PM EST Office Visit [facility] [place], [address] [place] [address] Enmanuel Casanova DO [address] [facility] [address] [place] [address] Health Maintenance Due Date Last Done Comments Pneumococcal Vaccine: 50+ Ye ars (1 of 2 - PCV) 1972 Colorectal Cancer Screening: Annual FOBT 2002 Colorectal Cancer Screening: Colonoscopy 2002 Colorectal Cancer Screening: Sigmoidoscopy 2002 Diabetes: Ophthalmology Exam 11/20/2020 Diabetes: Pedal Pulse Checked 11/20/2020 Diabetes: Sensory Foot Exam 11/20/2020 Diabetes: Visual Foot Exam 11/20/2020 Diabetes: Hemoglobin A1C 11/02/2021 08/02/2021 Influenza Vaccine (#1) 2025 Hepatitis B Vaccine Aged Out No longe [...] AM EDT) Hemoglobin A1C 6.1(H) (4.0-5.6) % [facility] Comment: MONITORING: In known diabetic patients, hemoglobin A1c targets should be discussed with health care provider. DIAGNOSTIC USE: The [place] [employer] Association (ADA) and the World Health [...] Supplement 1 Testing performed or reported by [facility], a Service of [facility], [address] [place] [id number] Britni Gary MD, Practical Nursing Teacher [facility]# [id number] Blood specimen (specimen) Venous blood / Unknown 08/02/2021 10:57 AM EDT 08/02/2021 11:00 AM EDT us Enmanuel Casanova DO LAB BLOOD ORDERABLES Final Resu lt [facility] from Last 3 Months or Most Recently Relevant to Health Maintenance Insurance Care Teams Promotions Assistant Relationship Specialty Start Date End Date Cynthia Thomas MD [address] [place] PCP - General 10/30/20
== END 2025-09-20 10:19 | disposition home or self-care (01) ==
LOC: HO.HMCH 09:46
PROVIDERS: PCP Internal Medicine; Visit Provider Internal Medicine
DX: I48.0 Paroxysmal atrial fibrillation (principal); I10 Essential (primary) hypertension; E11.69 Type 2 diabetes mellitus with other specified complication; E78.5 Hyperlipidemia, unspecified

== ENCOUNTER → 2025-09-20 09:45 | Outpatient (BNVA) | payer MEDICARE, SELFPAY | PROVIDERS: PCP Internal Medicine; Visit Provider Internal Medicine | DX: I48.0 Paroxysmal atrial fibrillation (principal); I10 Essential (primary) hypertension; E78.5 Hyperlipidemia, unspecified; E11.9 Type 2 diabetes mellitus without complications; Z79.01 Long term (current) use of anticoagulants; Z79.84 Long term (current) use of oral hypoglycemic drugs | CPT/HCPCS: 83036; 99212 ==

== ENCOUNTER 2025-09-28 09:36 | Outpatient (REF) | payer MEDICARE, SELFPAY ==
[2025-09-28 11:20] LABS: Albumin Level 4.6 g/dL (3.5-5.0); Anion Gap 10 (12-20); Blood Urea Nitrogen 12 mg/dL (9-16); Calcium 9.7 mg/dL (8.4-10.2); Carbon Dioxide 27 mmol/L (22-29); Chloride 106 mmol/L (96-108); Potassium 4.8 mmol/L (3.3-5.1); Sodium 138 mmol/L (135-145)
[2025-09-28 12:59] LABS: Microalbum/Creatinine Ratio Ur 5.8 ug/mg cr (<30)
== END 2025-09-28 09:37 ==
LOC: HO.LAB 09:36
PROVIDERS: PCP Internal Medicine; Visit Provider Internal Medicine Nephrology
DX: Z13.1 Encounter for screening for diabetes mellitus (principal); I12.9 Hypertensive chronic kidney disease with stage 1 through stage 4 chronic kidney disease, or unspecified chronic kidney disease; N18.31 Chronic kidney disease, stage 3a; N25.89 Other disorders resulting from impaired renal tubular function
CPT/HCPCS: 36415; 80069; 82043; 82570; 83036